=== PATIENT | female | born 1985 | race Caucasian/White ===

== ENCOUNTER → 2016-07-02 | Outpatient (CLI) | payer BC ==
--- NOTE | 2016-07-03 08:38 | CONS ---
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 The patient has had 2 previous episodes of atrial fibrillation. She has paroxysmal atrial fibrillation. Her episodes occurred at the time of approximately 4 years ago and she has had no further episodes since then. She is under the care of Dr. Major. There is a concern for obstructive sleep apnea as this was a concern expressed by her belt loop maker. The patient has loud snoring, yet she does not have any witnessed apneas. No nocturnal arousals, choking or gasping for air. No nocturia. She has history of grinding of the teeth and she wears a bite block. No sleepwalking. No anxiety or panic attacks. No palpitations. No heartburn. No major difficulties with tiredness, fatigue or sleepiness during the day. No problems with memory and concentration. No anxiety. No depression. No sexual dysfunction. She goes to bed around 10 p.m. wakes up at 5:20 a.m. in the morning. On weekends, she goes to bed around 10:30 p.m., wakes up at 6 a.m. in the morning. She averages around 7 hours of sleep. No restlessness in the lower extremities. Her current cardiac rhythm is sinus. PAST MEDICAL HISTORY: Paroxysmal atrial fibrillation, bronchial asthma, and hypothyroidism. PAST SURGICAL HISTORY: None. ALLERGIES: CIPRO. Outpatient medication list includes: 1. Synthroid 88 mcg p.o. q. day. 2. Probiotic. 3. Multivitamin. 4. Fish oil. 5. Vitamin D3. 6. Albuterol rescue inhaler. 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 No history of alcohol. No history of IV drugs. FAMILY HISTORY: Negative for cardiac disease. Patient's mother has obstructive sleep apnea. REVIEW OF SYSTEMS: Twelve-point review of systems was done and positive findings were all mentioned above in the history of present illness. BP is 119/75, pulse 77, respirations 16, temperature 98.0, saturation 95% on room air. Weight is 229. Height is 67-3/4 of an inch. BMI is 35.1. Neck size 15-2/3. [place] score is at 5. GENERAL APPEARANCE: Calm, comfortable. HEENT: Mallampati class 2 to 3. No goiter or neck masses. LUNGS: Clear to auscultation. HEART: Sounds are regular rate and rhythm. Normal S1, S2. No S3, no S4. No murmurs. ABDOMEN: Soft, nontender. No organomegaly. EXTREMITIES: No edema. No cyanosis or clubbing. IMPRESSION: 1. Snoring. 2. Paroxysmal atrial fibrillation. 3. Hypothyroidism. 4. Bronchial asthma. PLAN: Overall suspicion for obstructive sleep apnea is low. Will set up this patient for a home sleep study to screen her for obstructive sleep apnea and treat accordingly. Meanwhile, the patient's cardiac rhythm is sinus. She will benefit from weight loss. She will benefit from implementing good sleep hygiene measures. She is averaging around 7 hours of sleep anyway throughout the night which is plausible. Will continue to follow.
== END | disposition home or self-care (01) ==
LOC: SLEEP 15:21
PROVIDERS: ATTEND Internal Medicine Critical Care Medicine
DX: I48.0 Paroxysmal atrial fibrillation (principal); E03.9 Hypothyroidism, unspecified; J45.909 Unspecified asthma, uncomplicated; Z79.899 Other long term (current) drug therapy
CPT/HCPCS: 99211

== ENCOUNTER → 2017-03-06 | Outpatient (CLI) | payer BC ==
--- NOTE | 2017-03-06 13:25 | ECHOF ---
Referral Reason:A Fib I48 MEASUREMENTS -------- HEIGHT: 170.2 cm WEIGHT: 104.3 kg BP: 137/92 RVIDd: 3.0 cm (< 3.3) IVSd: 1.4 cm (0.6 - 1.1) LVIDd: 3.8 cm (3.9 - 5.3) LVPWd: 1.2 cm (0.6 - 1.1) IVSs: 1.6 cm LVIDs: 2.6 cm LVPWs: 1.7 cm LAESV Index (A-L): 18.77 ml/m Ao Diam: 3.5 cm (2.0 - 3.7) AV Cusp: 2.1 cm (1.5 - 2.6) LA Diam: 3.1 cm (2.7 - 3.8) MV EXCURSION: 21.866 mm (> 18.000) MV EF SLOPE: 106 mm/s (70 - 150) EPSS: 0.5 cm MV E Maycol: 0.70 m/s MV DecT: 254 ms MV A Maycol: 0.73 m/s MV E/A Ratio: 0.96 RAP: 5.00 mmHg RVSP: 7.79 mmHg FINDINGS -------- Sinus rhythm. This was a technically good study. The left ventricular size is normal. There is mild concentric left ventricular hypertrophy. Overa ll left ventricular systolic function is normal with, an EF between 55 - 60 %. The right ventricle is normal in size and function. Normal LA size by volume 22+/-6 ml/m2. The right atrium is normal in size. The aortic valve is trileaflet, and appears structurally normal. No aortic stenosis or regurgitation. The mitral valve leaflets are mildly thickened. There is trace mitral regurgitation. Trace tricuspid regurgitation present. The pulmonic valve is normal. The aortic root size is normal. Normal inferior vena cava with normal inspiratory collapse consistent with estimated right atrial pre ssure of 5 mmHg. The pericardium is normal. There is no pericardial effusion. CONCLUSIONS -------- 1. Sinus rhythm. 2. This was a technically good study. 3. The left ventricular size is normal. 4. There is mild concentric left ventricular hypertrophy. 5. Overall left ventricular systolic function is normal with, an EF between 55 - 60 %. 6. Normal LA size by volume 22+/-6 ml/m2. 7. The aortic valve is trileaflet, and appears structurally normal. No aortic stenosis or regurgitati on. 8. The mitral valve leaflets are mildly thickened. 9. There is trace mitral regurgitation. 10. Trace tricuspid regurgitation present. 11. The aortic root size is normal. 12. There is no pericardial effusion. [facility]URCH SECRETARY: Geronimo Napoles RDCS
== END | disposition home or self-care (01) ==
LOC: RADECHMAIN 11:28
PROVIDERS: ATTEND Internal Medicine Clinical Cardiac Electrophysiology
DX: I05.9 Rheumatic mitral valve disease, unspecified (principal); I51.7 Cardiomegaly
CPT/HCPCS: 93306

== ENCOUNTER 2017-05-14 15:21 | Inpatient (IN) | payer BC ==
[2017-05-14] MEDS ORDERED: THIAMINE 100 MG/ML 2 ML VIAL IVP STA (15:39)
[2017-05-14] MEDS ORDERED: SODIUM CHLORIDE 0.9% 1,000 ML IV STA ×2 (15:39)
[2017-05-14] MEDS ORDERED: SODIUM CHLORIDE 0.9% 500 ML IV STA (15:39)
[2017-05-14] MEDS ORDERED: diphenhydrAMINE 50 MG/ML 1 ML VIAL IVP STA (15:39)
[2017-05-14] MEDS ORDERED: DILTIAZEM 5 MG/ML 5 ML VIAL IVP STA ×3 (15:46→21:01)
[2017-05-14] MEDS ORDERED: DILTIAZEM 50 MG in SODIUM CHLORIDE 0.9% 40 ML IV ONE (15:46)
[2017-05-14] MEDS ORDERED: DILTIAZEM 125 MG in SODIUM CHLORIDE 0.9% 100 ML IV ONE (15:52)
[2017-05-14 15:57] LABS: Basophils % (A) 0 %; Eosinophils % (A) 0 %; HCT 44.2 % (34.0-46.0); HGB 15.6 gm/dL (11.4-16.0); Lymphocytes # (A) 0.5 k/uL (1.0-4.8); Lymphocytes % (A) 3 %; MCH 28.6 pg (25.0-35.0); MCHC 35.3 g/dL (31.0-37.0); MCV 81.1 fL (80.0-100.0); Mean Platelet Volume 8.1; Monocytes # (A) 0.6 k/uL (0-1.0); Monocytes % (A) 3 %; Neutrophils # (A) 16.6 k/uL (1.3-7.7); Neutrophils % (A) 92 %; Platelet Count 267 k/uL (150-450); RBC 5.45 m/uL (3.80-5.40); RDW 12.4 % (11.5-15.5)
--- NOTE | 2017-05-14 16:01 | ED ---
General Adult HPI - General Chief complaint: Nausea/Vomiting/Diarrhea Stated complaint: heart palpitations/10wks preg Time Seen by Provider: 05/14/17 15:37 Source: patient, RN notes reviewed, old records reviewed Mode of arrival: ambulatory Limitations: no limitations - History of Present Illness Initial comments: This is a 29-year-old female the ER for evaluation. Patient has multiple complaints today. Patient is 10 weeks and does suffer from nausea vomiting and recent diarrhea. Patient has no pain. She noticed that her heart started racing today and she does have history for ablation with RVR, patient is a with history of A. fib with RVR during . Patient will be admitted for cardiology observation - Related Data Home Medications Medication Instructions Recorded Confirmed Levothyroxine Sodium 88 mcg PO DAILY 04/27/14 05/14/17 [Levothyroxine Sodium] Albuterol Inhaler [Ventolin Hfa 1 - 2 puff INHALATION RT-Q6H PRN 05/14/17 Inhaler] Diclegis 10-10mg 2 tab PO HS 05/14/17 05/14/17 Flecainide Acetate 200 mg PO DAILY PRN 05/14/17 05/14/17 Bdz-Fgyk-Rrhcy Acid 1 cap PO DAILY 05/14/17 05/14/17 [-U Capsule (formulary)] Allergies Allergy/AdvReac Type Severity Reaction Status Date / Time ciprofloxacin [From Cipro] Allergy Unknown Verified 05/14/17 15:30 ciprofloxacin HCl Allergy Unknown Verified 05/14/17 15:30 [From Cipro] Review of Systems ROS Statement: Those systems with pertinent positive or pertinent negative responses have been documented in the HPI. ROS Other: All systems not noted in ROS Statement are negative. Past Medical History Past Medical History: Atrial Fibrillation, Asthma, Thyroid Disorder History of Any Multi-Drug Resistant Organisms: None Reported Past Surgical History: Breast Surgery, Section Additional Past Surgical History / Comment(s): reduction Past Psychological History: No Psychological Hx Reported Smoking Status: Former smoker Past Alcohol Use History: None Reported, Occasional Past Drug Use History: None Reported General Exam Limitations: no limitations General appearance: alert, in no apparent distress, anxious Head exam: Present: atraumatic, normocephalic, normal inspection Eye exam: Present: normal appearance, PERRL, EOMI. Absent: scleral icterus, conjunctival injection, periorbital swelling ENT exam: Present: normal exam, mucous membranes moist Neck exam: Present: normal inspection. Absent: tenderness, meningismus, lymphadenopathy Respiratory exam: Present: normal lung sounds bilaterally. Absent: respiratory distress, wheezes, rales, rhonchi, stridor Cardiovascular Exam: Present: tachycardia, irregular rhythm, normal heart sounds. Absent: systolic murmur, diastolic murmur, rubs, gallop, clicks GI/Abdominal exam: Present: soft, normal bowel sounds. Absent: distended, tenderness, guarding, rebound, rigid Extremities exam: Present: normal inspection, full ROM, normal capillary refill. Absent: tenderness, pedal edema, joint swelling, calf tenderness Back exam: Present: normal inspection Neurological exam: Present: alert, oriented X3, CN II-XII intact Psychiatric exam: Present: normal affect, normal mood Skin exam: Present: warm, dry, intact, normal color. 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 fib with RVR rate 165, QRS 76, QTc 473 Medical Decision Making - Medical Decision Making 31 female ER for evaluation nausea vomiting related, patient also in A. fib with RVR which is recurrent for her. Patient be admitted for cardiology treatment - Lab Data Result diagrams: 05/14/17 15:44 05/14/17 15:44 Lab Results 05/14/17 05/14/17 05/14/17 Range/Units 15:44 15:44 15:44 WBC 18.0 H (3.8-10.6) k/uL RBC 5.45 H (3.80-5.40) m/uL Hgb 15.6 (11.4-16.0) gm/dL Hct 44.2 (34.0-46.0) % MCV 81.1 (80.0-100.0) fL MCH 28.6 (25.0-35.0) pg MCHC 35.3 (31.0-37.0) g/dL RDW 12.4 (11.5-15.5) % Plt Count 267 (150-450) k/uL Neutrophils % 92 % Lymphocytes % 3 % Monocytes % 3 % Eosinophils % 0 % Basophils % 0 % Neutrophils # 16.6 H (1.3-7.7) k/uL Lymphocytes # 0.5 L (1.0-4.8) k/uL Monocytes # 0.6 (0-1.0) k/uL Eosinophils # 0.0 (0-0.7) k/uL Basophils # 0.0 (0-0.2) k/uL Sodium 140 (137-145) mmol/L Potassium 4.2 (3.5-5.1) mmol/L Chloride 105 (98-107) mmol/L Carbon Dioxide 19 L (22-30) mmol/L Anion Gap 16 mmol/L BUN 14 (7-17) mg/dL Creatinine 0.50 L (0.52-1.04) mg/dL Est GFR (CKD-EPI)AfAm >90 (>60 ml/min/1.73 sqM) Est GFR (CKD-EPI)NonAf >90 (>60 ml/min/1.73 sqM) Glucose 121 H (74-99) mg/dL Calcium 9.7 (8.4-10.2) mg/dL Phosphorus 4.0 (2.5-4.5) mg/dL Magnesium 1.7 (1.6-2.3) mg/dL Total Bilirubin 0.5 (0.2-1.3) mg/dL AST 22 (14-36) U/L ALT 28 (9-52) U/L Alkaline Phosphatase 77 (38-126) U/L Total Creatine Kinase 69 (30-135) U/L CK-MB (CK-2) 0.6 (0.0-2.4) ng/mL CK-MB (CK-2) Rel Index 0.9 Troponin I <0.012 (0.000-0.034) ng/mL Total Protein 7.4 (6.3-8.2) g/dL Albumin 4.2 (3.5-5.0) g/dL Urine Color Urine Appearance (Clear) Urine pH (5.0-8.0) Ur Specific [place] (1.001-1.035) Urine Protein (Negative) Urine Glucose (UA) (Negative) Urine Ketones (Negative) Urine Blood (Negative) Urine Nitrite (Negative) Urine Bilirubin (Negative) Urine Urobilinogen (<2.0) mg/dL Ur Leukocyte Esterase (Negative) Urine RBC (0-5) /hpf Urine WBC (0-5) /hpf Ur Squamous Epith Cells (0-4) /hpf Urine Bacteria (None) /hpf Urine Mucus (None) /hpf 05/14/17 Range/Units 16:00 WBC (3.8-10.6) k/uL RBC (3.80-5.40) m/uL Hgb (11.4-16.0) gm/dL Hct (34.0-46.0) % MCV (80.0-100.0) fL MCH (25.0-35.0) pg MCHC (31.0-37.0) g/dL RDW (11.5-15.5) % Plt Count (150-450) k/uL Neutrophils % % Lymphocytes % % Monocytes % % Eosinophils % % Basophils % % Neutrophils # (1.3-7.7) k/uL Lymphocytes # (1.0-4.8) k/uL Monocytes # (0-1.0) k/uL Eosinophils # (0-0.7) k/uL Basophils # (0-0.2) k/uL Sodium (137-145) mmol/L Potassium (3.5-5.1) mmol/L Chloride (98-107) mmol/L Carbon Dioxide (22-30) mmol/L Anion Gap mmol/L BUN (7-17) mg/dL Creatinine (0.52-1.04) mg/dL Est GFR (CKD-EPI)AfAm (>60 ml/min/1.73 sqM) Est GFR (CKD-EPI)NonAf (>60 ml/min/1.73 sqM) Glucose (74-99) mg/dL Calcium (8.4-10.2) mg/dL Phosphorus (2.5-4.5) mg/dL Magnesium (1.6-2.3) mg/dL Total Bilirubin (0.2-1.3) mg/dL AST (14-36) U/L ALT (9-52) U/L Alkaline Phosphatase (38-126) U/L Total Creatine Kinase (30-135) U/L CK-MB (CK-2) (0.0-2.4) ng/mL CK-MB (CK-2) Rel Index Troponin I (0.000-0.034) ng/mL Total Protein (6.3-8.2) g/dL Albumin (3.5-5.0) g/dL Urine Color Yellow Urine Appearance Cloudy H (Clear) Urine pH 6.0 (5.0-8.0) Ur Specific [place] 1.030 (1.001-1.035) Urine Protein 2+ H (Negative) Urine Glucose (UA) Negative (Negative) Urine Ketones 1+ H (Negative) Urine Blood Negative (Negative) Urine Nitrite Negative (Negative) Urine Bilirubin Negative (Negative) Urine Urobilinogen <2.0 (<2.0) mg/dL Ur Leukocyte Esterase Negative (Negative) Urine RBC 2 (0-5) /hpf Urine WBC 5 (0-5) /hpf Ur Squamous Epith Cells 2 (0-4) /hpf Urine Bacteria Rare H (None) /hpf Urine Mucus Many H (None) /hpf Disposition Clinical Impression: Atrial fibrillation with RVR, Nausea & vomiting Disposition: ADMITTED IP TO THIS HOSP Condition: Fair Referrals: Art Bello DO [Primary Care Provider] - 1-2 days
[2017-05-14] MEDS ORDERED: ONDANSETRON 4 MG/2 ML VIAL IVP STA ×3 (16:06→19:40)
[2017-05-14 16:08] LABS: ALT 28 U/L (9-52); AST 22 U/L (14-36); Albumin 4.2 g/dL (3.5-5.0); Alkaline Phosphatase 77 U/L (38-126); Anion Gap 16 mmol/L; Blood Urea Nitrogen 14 mg/dL (7-17); Calcium 9.7 mg/dL (8.4-10.2); Carbon Dioxide 19 mmol/L (22-30); Chloride 105 mmol/L (98-107); Glucose 121 mg/dL (74-99); Potassium 4.2 mmol/L (3.5-5.1); Sodium 140 mmol/L (137-145); Total Bilirubin 0.5 mg/dL (0.2-1.3); Total Protein 7.4 g/dL (6.3-8.2)
[2017-05-14 16:16] LABS: Appearance,Urine Cloudy (Clear); Bacteria,Urine Rare /hpf; Bilirubin,Urine Negative (Negative); Blood,Urine Negative (Negative); Color,Urine Yellow; Glucose,Urine (UA) Negative (Negative); Ketones,Urine 1+ (Negative); Leukocyte Esterase,Urine Negative (Negative); Mucus,Urine Many /hpf; Protein,Urine 2+ (Negative); RBC,Urine 2 /hpf (0-5); Squamous Epithelial Cell,Urine 2 /hpf (0-4); Urobilinogen,Urine <2.0 mg/dL (<2.0); WBC,Urine 5 /hpf (0-5)
[2017-05-14 16:24] LABS: Creatine Kinase 69 U/L (30-135)
[2017-05-14 16:36] LABS: Creatine Kinase MB 0.6 ng/mL (0.0-2.4); Troponin I <0.012 ng/mL (0.000-0.034)
[2017-05-14] MEDS ORDERED: NITROGLYCERIN SL TABS 0.4 MG TAB SUBLINGUAL PRN (17:15)
[2017-05-14] MEDS ORDERED: diphenhydrAMINE 50 MG/ML 1 ML VIAL IVP PRN (17:17)
[2017-05-14] MEDS ORDERED: PYRIDOXINE 100 MG/ML 1 ML VIAL IVP STA (17:21)
[2017-05-14] MEDS ORDERED: ONDANSETRON 4 MG/2 ML VIAL IVP PRN (19:37)
[2017-05-14 21:54] LABS: Creatine Kinase MB 0.7 ng/mL (0.0-2.4); Troponin I 0.012 ng/mL (0.000-0.034)
[2017-05-15 04:19] LABS: Anion Gap 11 mmol/L; Blood Urea Nitrogen 13 mg/dL (7-17); Carbon Dioxide 21 mmol/L (22-30); Chloride 104 mmol/L (98-107); Glucose 99 mg/dL (74-99); Potassium 3.8 mmol/L (3.5-5.1); Sodium 136 mmol/L (137-145)
[2017-05-15 04:36] LABS: Basophils % (A) 0 %; Eosinophils % (A) 0 %; HCT 37.2 % (34.0-46.0); HGB 12.8 gm/dL (11.4-16.0); Lymphocytes # (A) 1.1 k/uL (1.0-4.8); Lymphocytes % (A) 11 %; MCH 28.5 pg (25.0-35.0); MCHC 34.5 g/dL (31.0-37.0); MCV 82.7 fL (80.0-100.0); Mean Platelet Volume 8.6; Monocytes # (A) 0.5 k/uL (0-1.0); Monocytes % (A) 5 %; Neutrophils # (A) 8.4 k/uL (1.3-7.7); Neutrophils % (A) 82 %; Platelet Count 232 k/uL (150-450); RDW 12.7 % (11.5-15.5); WBC 10.3 k/uL (3.8-10.6)
[2017-05-15 04:50] LABS: Cholesterol 120 mg/dL (<200); HDL Cholesterol 57 mg/dL (40-60); LDL Cholesterol,Calculated 46 mg/dL (0-99); Triglycerides 83 mg/dL (<150)
[2017-05-15 04:52] LABS: Creatine Kinase MB 0.8 ng/mL (0.0-2.4); Troponin I 0.019 ng/mL (0.000-0.034)
[2017-05-15 08:22] VITALS: BP 128/79; PULSE 85; RESP 18; TEMP 96.9
--- NOTE | 2017-05-15 08:27 | P.HPOB ---
History of Present Illness H&P Date: 05/15/17 Chief Complaint: Tachycardia, atrial fibrillation The patient is a 31-year-old 3 para 03/10/2000 who presented to the emergency room as documented in the ER notes with complaint of significant tachycardia with the somewhat associated shortness of breath. She carries a history of known atrial fibrillation for which she was treated during her first and ultimately converted after several days of medication. She had taken her to medications prescribed by Dr. Major prior to presentation to the emergency room and failed to convert during that short period of time. As result she is seen in the emergency room where she was further treated and admitted for observation and cardiology consultation, further management of atrial fibrillation. She has had fairly significant nausea and vomiting for the first portion of but, as of this morning, feel significantly better from that perspective. She has had a normal ultrasound in the office and is approximately 10 weeks which is the reason for her admission to my service rather than internal medicine. This morning, the patient has no ongoing complaints and feels well. Obstetrical history: 3 para 03/10/2000 with 1 term delivery for a child with albinism followed by a mid second trimester medical interruption of for a fetus found with multiple congenital anomalies. This has been evaluated by ultrasound and, to this point, appears normal. She is scheduled for her first obstetrical visit next week. Gynecologic history: Unremarkable with no history of any infections to include STDs. Review of Systems Review of systems is confined to history of present illness. Past Medical History Past Medical History: Atrial Fibrillation, Asthma, Thyroid Disorder History of Any Multi-Drug Resistant Organisms: None Reported Past Surgical History: Breast Surgery, Section Additional Past Surgical History / Comment(s): reduction Past Anesthesia/Blood Transfusion Reactions: No Reported Reaction Past Psychological History: No Psychological Hx Reported Smoking Status: Former smoker Past Alcohol Use History: None Reported, Occasional Past Drug Use History: None Reported - Past Family History Father Family Medical History: AFIB, Hypertension Medications and Allergies Home Medications Medication Instructions Recorded Confirmed Type Levothyroxine Sodium 88 mcg PO DAILY 04/27/14 05/14/17 History [Levothyroxine Sodium] Albuterol Inhaler [Ventolin Hfa 1 - 2 puff INHALATION RT-Q6H PRN 05/14/17 History Inhaler] Diclegis 10-10mg 2 tab PO HS 05/14/17 05/14/17 History Flecainide Acetate 200 mg PO DAILY PRN 05/14/17 05/14/17 History Ogs-Zsic-Gimfx Acid 1 cap PO DAILY 05/14/17 05/14/17 History [-U Capsule (formulary)] Allergies Allergy/AdvReac Type Severity Reaction Status Date / Time ciprofloxacin [From Cipro] Allergy Anaphylaxis Verified 05/14/17 20:17 ciprofloxacin HCl Allergy Anaphylaxis Verified 05/14/17 20:17 [From Cipro] Exam - Vital Signs Vital signs: Vital Signs Temp Pulse Pulse Resp BP BP Pulse Ox 05/15/17 08:00 88 16 05/15/17 04:00 98.4 F 88 16 115/74 96 05/14/17 23:06 98.7 F 83 18 113/65 97 05/14/17 20:00 144 H 18 131/75 99 05/14/17 19:55 99.2 F 05/14/17 19:22 135 H 16 116/78 99 05/14/17 17:17 142 H 16 127/72 99 05/14/17 15:47 159 H 05/14/17 15:26 99.1 F 109 H 18 129/88 98 Intake and Output 05/14/17 05/15/17 05/15/17 22:59 06:59 14:59 Intake Total 830 80 240 Balance 830 80 240 Intake: IV 830 80 Diltiazem 50 mg In Sodium 30 Chloride 0.9% 40 ml @ 5 MG/HR 5 mls/hr IV .Q10H ONE Rx#:[id number] Sodium Chloride 0.9% 1, 800 80 000 ml @ 100 mls/hr IV . Q10H STA Rx#:[id number] Oral 240 Other: Voiding Method Toilet Toilet Toilet Weight 109.769 kg 109.8 kg In general, this is a well-developed, well-nourished white female in no acute distress. Her heart has a regular rhythm and rate without murmur. Her lungs are clear to auscultation bilaterally in all [place]. Her abdomen is nondistended, has normal active bowel sounds, is soft, nontender, and without any palpable masses, penicillin ultimately, or hernias. Her extremities are without any cyanosis, clubbing, or edema and are nontender to palpation bilaterally. Pelvic examination is deferred. Results Result Diagrams: 05/15/17 03:42 05/15/17 03:42 Abnormal Lab Results - Last 24 Hours (Table) 05/14/17 05/14/17 05/14/17 Range/Units 15:44 15:44 16:00 WBC 18.0 H (3.8-10.6) k/uL RBC 5.45 H (3.80-5.40) m/uL Neutrophils # 16.6 H (1.3-7.7) k/uL Lymphocytes # 0.5 L (1.0-4.8) k/uL Sodium (137-145) mmol/L Carbon Dioxide 19 L (22-30) mmol/L Creatinine 0.50 L (0.52-1.04) mg/dL Glucose 121 H (74-99) mg/dL Urine Appearance Cloudy H (Clear) Urine Protein 2+ H (Negative) Urine Ketones 1+ H (Negative) Urine Bacteria Rare H (None) /hpf Urine Mucus Many H (None) /hpf 05/15/17 05/15/17 Range/Units 03:42 03:42 WBC (3.8-10.6) k/uL RBC (3.80-5.40) m/uL Neutrophils # 8.4 H (1.3-7.7) k/uL Lymphocytes # (1.0-4.8) k/uL Sodium 136 L (137-145) mmol/L Carbon Dioxide 21 L (22-30) mmol/L Creatinine 0.50 L (0.52-1.04) mg/dL Glucose (74-99) mg/dL Urine Appearance (Clear) Urine Protein (Negative) Urine Ketones (Negative) Urine Bacteria (None) /hpf Urine Mucus (None) /hpf Microbiology - Last 24 Hours (Table) 05/14/17 16:00 Urine Culture - Preliminary Urine,Voided Assessment and Plan (1) 10 weeks gestation of Current Visit: Yes Status: Acute Code(s): Z3A.10 - 10 WEEKS GESTATION OF SNOMED Code(s): 16337751 (2) Atrial fibrillation with RVR Current Visit: Yes Status: Acute Code(s): I48.91 - UNSPECIFIED ATRIAL FIBRILLATION SNOMED Code(s): 821807825982308 Plan: The patient was admitted to my service as internal medicine was uncomfortable with her status of . Cardiology has been consulted of but the patient appears to have converted with the medications provided both at home for her and then given through the emergency room. As result, she will be discharged pending cardiology's [place]. There is some question as to whether or not she deserves anticoagulation in the short or even long-term. We likely will seek maternal medicine consultation as an outpatient for their input. Otherwise the patient will follow up as previously scheduled in our office.
--- NOTE | 2017-05-15 08:31 | P.DS ---
Providers Date of admission: 05/14/17 17:15 Expected date of discharge: 05/15/17 Attending physician: Newton Meyers Consults: 05/14/17 17:15 Consult Physician Urgent Consulting Provider: Victorino Major Consult Reason/Comments: afib Do you want consulting provider notified?: Yes Primary care physician: Art Bello - Discharge Diagnosis(es) (1) 10 weeks gestation of Current Visit: Yes Status: Acute (2) Atrial fibrillation with RVR Current Visit: Yes Status: Acute Hospital Course: The patient is a 31-year-old 3 para 03/10/2000 admitted at approximately 10 weeks of through the emergency room with a history of atrial fibrillation and again found to be in acute atrial fibrillation. She took medications provided her by cardiology at home prior to presentation to the emergency room but did not convert. She was given further medications in the emergency room and admitted to the hospital for observation and cardiology consultation. Shortly after admission, she appears to of converted to normal sinus rhythm. She is entirely without symptoms at this time though she has had a fairly significant amount of nausea and vomiting in the early portion of . This is likely not necessarily related to the cardiac condition but more to early . This morning, she feels well and I will be discharged home to follow-up in our office for her first obstetrical visit next week as previously planned. I would likely will seek maternal medicine consultation for their input especially given her history of medical interruption of for anomalies in her last . There is a question as to whether or not she deserves anticoagulation or at least prophylactic anticoagulation in the short or long-term during this . Procedures: #1. 23 hour observation #2. Remote telemetry #3. IV hydration #4. Cardiology consultation Patient Condition at Discharge: Stable Plan - Discharge Summary Discharge Rx Participant: No New Discharge Prescriptions: No Action Levothyroxine Sodium [Levothyroxine Sodium] 88 mcg PO DAILY Diclegis 10-10mg 2 tab PO HS Albuterol Inhaler [Ventolin Hfa Inhaler] 1 - 2 puff INHALATION RT-Q6H PRN PRN Reason: Shortness Of Breath Yvr-Ijcg-Rpxak Acid [-U Capsule (formulary)] 1 cap PO DAILY Flecainide Acetate 200 mg PO DAILY PRN PRN Reason: Irregular heart beat Discharge Medication List Levothyroxine Sodium [Levothyroxine Sodium] 88 mcg PO DAILY 04/27/14 [History] Albuterol Inhaler [Ventolin Hfa Inhaler] 1 - 2 puff INHALATION RT-Q6H PRN [History] Diclegis 10-10mg 2 tab PO HS 05/14/17 [History] Flecainide Acetate 200 mg PO DAILY PRN 05/14/17 [History] Wzo-Awuj-Pgcxm Acid [-U Capsule (formulary)] 1 cap PO DAILY 09/24 [History] Follow up Appointment(s)/Referral(s): Art Bello DO [Primary Care Provider] - 1-2 days Newton Meyers MD [STAFF PHYSICIAN] - 1 Week Victorino Major MD [STAFF PHYSICIAN] - 1 Week Discharge Disposition: HOME SELF-CARE
[2017-05-15] MEDS ORDERED: THIAMINE 100 MG/ML 2 ML VIAL IVP SCH (09:00)
[2017-05-15] MEDS ORDERED: PYRIDOXINE 100 MG/ML 1 ML VIAL IVP SCH (09:00)
--- NOTE | 2017-05-16 11:47 | CONS ---
CONSULTATION Vonda Tovar is a 31-year-old female who presented with palpitations at home and came to the hospital. She is 10 weeks . She felt palpitations. No syncope. No dizziness or lightheadedness. No chest pain. No shortness of breath. She took 200 mg of flecainide, but did not respond within next 2 to 3 , and therefore came to the hospital. A 12-lead ECG shows atrial fibrillation with RVR fairly irregular. By the time I saw her, she had converted back to sinus rhythm. PAST HISTORY: Past history of paroxysmal atrial fibrillation during her . At that time, it took 3 doses of flecainide to convert to sinus rhythm. At this time, she converted sooner. REVIEW OF SYSTEMS: No fever, chills, or rigors. No cough or expectoration. No nausea, vomiting, or diarrhea. No hematuria or dysuria. No strokes or seizures. No skin lesions or musculoskeletal complaints. MEDICATIONS: Medications include metoprolol, flecainide p.r.n. only. PHYSICAL EXAMINATION: On examination, her blood pressure is normal. Heart rates are now in the normal range. When she came in, she was in A. Fib with RVR. Breath sounds are clear. No rhonchi, no crackles. Heart sounds S1, S2 are normal. No murmurs or gallops or rub. Abdomen is soft and nontender. IMPRESSION: Paroxysmal atrial fibrillation with rapid ventricular response. This is the second episode she has had during her . Currently she is in sinus rhythm. SUGGEST: No anticoagulation, p.r.n. use of flecainide only along with metoprolol. She may go home from a cardiac standpoint. Follow up with me in the next 6 to 8 weeks. MMODL / IJN: [id number] /
== END 2017-05-15 10:07 | disposition home or self-care (01) | DRG 781 ==
LOC: EC 15:21 → 6SEL 17:15
PROVIDERS: ADMIT Obstetrics & Gynecology; ATTEND Obstetrics & Gynecology
DX: O99.411 Diseases of the circulatory system complicating pregnancy, first trimester (principal); I48.0 Paroxysmal atrial fibrillation; O99.511 Diseases of the respiratory system complicating pregnancy, first trimester; J45.909 Unspecified asthma, uncomplicated; Z3A.10 10 weeks gestation of pregnancy; O21.9 Vomiting of pregnancy, unspecified; O99.281 Endocrine, nutritional and metabolic diseases complicating pregnancy, first trimester; E07.9 Disorder of thyroid, unspecified; Z79.899 Other long term (current) drug therapy; Z87.891 Personal history of nicotine dependence; Z88.1 Allergy status to other antibiotic agents; Z82.49 Family history of ischemic heart disease and other diseases of the circulatory system
CPT/HCPCS: 36415; 80048; 80053; 80061; 81001; 82550; 82553; 83735; 84100; 84484; 85025; 87086; 93005; 96365; 96366; 96375; 96376; 99285

== ENCOUNTER 2017-12-10 10:15 | Inpatient (IN) | payer BC ==
[2017-12-10 10:44] VITALS: BMI 44.6
[2017-12-10] MEDS ORDERED: CITRIC ACID-SODIUM CITRATE 15 ML CUP PO ONE (10:48)
[2017-12-10] MEDS ORDERED: LACTATED RINGERS 1,000 ML IV SCH (11:00)
[2017-12-10 11:05] LABS: Basophils % (A) 0 %; Eosinophils # (A) 0.1 k/uL (0-0.7); Eosinophils % (A) 1 %; HCT 39.2 % (34.0-46.0); HGB 13.3 gm/dL (11.4-16.0); Lymphocytes # (A) 0.9 k/uL (1.0-4.8); Lymphocytes % (A) 9 %; MCH 27.7 pg (25.0-35.0); MCHC 33.8 g/dL (31.0-37.0); MCV 82.1 fL (80.0-100.0); Mean Platelet Volume 9.9; Monocytes # (A) 0.7 k/uL (0-1.0); Monocytes % (A) 6 %; Neutrophils # (A) 8.7 k/uL (1.3-7.7); Neutrophils % (A) 82 %; Platelet Count 205 k/uL (150-450); RBC 4.78 m/uL (3.80-5.40); RDW 13.7 % (11.5-15.5); WBC 10.7 k/uL (3.8-10.6)
--- NOTE | 2017-12-10 11:59 | P.HPOB ---
History of Present Illness H&P Date: 12/10/17 Chief Complaint: 40-0/7 weeks, previous , repeat The patient is a 32-year-old 3 para 1011 admitted at 40-0/7 as established by last menstrual period and confirmed by seven-week ultrasound. She is admitted for repeat low transverse section with intraoperative bilateral tubal occlusion using Filshie clips. She has signed consent to this effect in the office. Her has been essentially uncomplicated though she is Rh- and received RhoGAM at 28 weeks. She also has a history of A. fib which has not been particularly problematic during this . Group B strep status is negative. Obstetrical history: 3 para 1011 with 1 previous term section for a very large baby. That child does have known albinism. She also has a history of a medical interruption of for trisomy in her most recent . Current statistics are listed in history of present illness. EDC of 12/10/2017 was established by last menstrual period and confirmed by seven-week ultrasound. Laboratory workup demonstrates a blood type of O- with a negative antibody screen. Rubella status is immune. The remainder of the laboratory workup was within normal limits. Early Glucola was normal as was second trimester Glucola. Group B strep status is negative. Gynecologic history: Unremarkable with no history of any infections to include STDs. Review of Systems Review of systems is confined to history of present illness. Past Medical History Past Medical History: Atrial Fibrillation, Asthma, Thyroid Disorder History of Any Multi-Drug Resistant Organisms: None Reported Past Surgical History: Breast Surgery, Section Additional Past Surgical History / Comment(s): reduction Past Anesthesia/Blood Transfusion Reactions: No Reported Reaction Past Psychological History: No Psychological Hx Reported Smoking Status: Former smoker Past Alcohol Use History: None Reported, Occasional Past Drug Use History: None Reported - Past Family History Father Family Medical History: AFIB, Hypertension Medications and Allergies Home Medications Medication Instructions Recorded Confirmed Type Levothyroxine Sodium 88 mcg PO DAILY 04/27/14 05/14/17 History Albuterol Inhaler [Ventolin Hfa 1 - 2 puff INHALATION RT-Q6H PRN 05/14/17 History Inhaler] Diclegis 10-10mg 2 tab PO HS 05/14/17 05/14/17 History Jxr-Wjhn-Pqmda Acid 1 cap PO DAILY 05/14/17 05/14/17 History [-U Capsule (formulary)] Allergies Allergy/AdvReac Type Severity Reaction Status Date / Time ciprofloxacin [From Cipro] Allergy Anaphylaxis Verified 05/14/17 20:17 ciprofloxacin HCl Allergy Anaphylaxis Verified 05/14/17 20:17 [From Cipro] Exam Vital Signs Temp Pulse Resp BP Pulse Ox 12/10/17 10:40 97.9 F 107 H 16 139/98 97 Intake and Output 12/09/17 12/10/17 12/10/17 22:59 06:59 14:59 Other: Weight 133.356 kg In general, this is a well-developed, moderately obese white female in no acute distress. Her heart has a regular rhythm and rate without murmur. Her lungs are clear to auscultation bilaterally in all bingham. Her abdomen is gravid, nondistended, has normal active bowel sounds, is soft, nontender, and without any palpable masses aside from uterine fundus. Her extremities are without any cyanosis, clubbing, or significant edema though she has had moderate edema 8 in the . They are nontender to palpation bilaterally. Digital cervical examination is deferred. Results Result Diagrams: 12/10/17 10:37 Abnormal Lab Results - Last 24 Hours (Table) 12/10/17 Range/Units 10:37 WBC 10.7 H (3.8-10.6) k/uL Neutrophils # 8.7 H (1.3-7.7) k/uL Lymphocytes # 0.9 L (1.0-4.8) k/uL Assessment and Plan (1) Term Current Visit: Yes Status: Acute Code(s): Z34.80 - ENCOUNTER FOR SUPRVSN OF NORMAL , UNSP TRIMESTER SNOMED Code(s): 61961014 (2) Previous section Current Visit: Yes Status: Acute Code(s): Z98.891 - HISTORY OF UTERINE SCAR FROM PREVIOUS SURGERY SNOMED Code(s): 667813209 (3) Status post section Current Visit: Yes Status: Acute Code(s): Z98.891 - HISTORY OF UTERINE SCAR FROM PREVIOUS SURGERY SNOMED Code(s): 311780302 (4) Family planning Current Visit: Yes Status: Acute Code(s): Z30.09 - ENCOUNTER FOR OT GENERAL CNSL AND ADVICE ON CONTRACEPTION SNOMED Code(s): 678293326 Plan: The patient is admitted for repeat low transverse section with intraoperative bilateral tubal occlusion using Filshie clips. The risks and complications of the procedure have been thoroughly discussed and she has understood and agreed to proceed.
[2017-12-10] MEDS ORDERED: NALBUPHINE 10 MG/ML VIAL (10ML MDV) ONE (12:22)
[2017-12-10] MEDS ORDERED: ONDANSETRON 4 MG/2 ML VIAL ONE (12:22)
[2017-12-10] MEDS ORDERED: ePHEDrine SULFATE/0.9% NACL/PF 50 MG/5 ML SYRINGE IV ONE (12:22)
[2017-12-10] MEDS ORDERED: MORPHINE SULFATE (PF) 0.3 MG/0.3 ML SYR ONE (12:22)
[2017-12-10] MEDS ORDERED: OXYTOCIN 10 UNIT/ML 1 ML VIAL ONE (12:22)
[2017-12-10] MEDS ORDERED: NALOXONE 0.4 MG/ML 1 ML VIAL IV PRN ×2 (13:21→13:45)
[2017-12-10] MEDS ORDERED: SIMETHICONE 80 MG CHEWABLE PO PRN (13:21)
[2017-12-10] MEDS ORDERED: ZOLPIDEM 5 MG TAB PO PRN (13:21)
[2017-12-10] MEDS ORDERED: KETOROLAC 30 MG/ML 1 ML VIAL IVP PRN (13:21)
[2017-12-10] MEDS ORDERED: diphenhydrAMINE 50 MG CAP PO PRN (13:21)
[2017-12-10] MEDS ORDERED: HYDROcodone/APAP 5-325MG 1 EACH TAB PO PRN (13:21)
[2017-12-10] MEDS ORDERED: ACETAMINOPHEN TAB 325 MG TAB PO PRN (13:21)
[2017-12-10] MEDS ORDERED: diphenhydrAMINE 50 MG/ML 1 ML VIAL IVP PRN ×2 (13:21)
[2017-12-10] MEDS ORDERED: HYDROcodone/APAP 7.5-325MG 1 EACH TAB PO PRN (13:21)
[2017-12-10] MEDS ORDERED: METOCLOPRAMIDE 5 MG/ML 2 ML VIAL IVP PRN (13:21)
[2017-12-10] MEDS ORDERED: diphenhydrAMINE 25 MG CAP PO PRN (13:21)
[2017-12-10] MEDS ORDERED: ONDANSETRON 4 MG/2 ML VIAL IVP PRN (13:21)
[2017-12-10] MEDS ORDERED: OXYTOCIN 20 UNITS/1000 ML NS 1,000 ML IV SCH (13:30)
--- NOTE | 2017-12-10 13:30 | P.OP ---
Date of Procedure: 12/10/17 Preoperative Diagnosis: #1. 40-0/7 weeks, previous section #2. Undesired fertility #3. Rh- Postoperative Diagnosis: Same plus #4. Fibroid uterus Procedure(s) Performed: #1. Repeat low transverse section #2. Bilateral tubal occlusion with Filshie clips Anesthesia: spinal Surgeon: Newton Meyers Media Analyst #1: Morelia Bar Estimated Blood Loss (ml): 600 IV fluids (ml): 1,200 Urine output (ml): 200 Pathology: none sent Condition: stable Disposition: floor Operative Findings: Preoperatively, the patient had consented to repeat low transverse section with intraoperative tubal ligation. Intraoperatively, the patient was noted to have a moderate amount of scarring at the level of the fascia and rectus muscles. The uterus was otherwise essentially entirely normal to inspection with the exception of one approximate 3-4 cm posterior fundal fibroid. She was delivered of a viable 10 lbs. 10 oz. baby girl with Apgars of 8 at 1 minute and 9 at 5 minutes delivered in the occiput anterior position. The placenta was delivered manually, intact, and grossly normal with a grossly normal three-vessel cord. It was otherwise quite large. As noted above, the uterus, tubes, and ovaries were entirely normal aside from the fibroid. A Filshie clip was placed across the isthmic portion of each fallopian tube and firmly fixed. Description of Procedure: The patient was prepped and draped in usual fashion after spinal anesthesia was administered by the anesthesiologist. A Pfannenstiel incision was made through pre-existing scar and extended into the abdominal cavity with minimal difficulty. There was a moderate amount of scarring at the level of fascia and rectus muscles. The bladder peritoneum was elevated, incised, and reflected distally. A 2 cm incision was made in the transverse plane of the lower uterine segment to enter the uterus at which time clear fluid was noted. The incision was extended in both directions using the bandage scissors. The head was discovered floating in the pelvis and was delivered up and through the incision in the right occiput anterior position. The nose and mouth were thoroughly suctioned. Remainder of the infant was delivered onto the field where the cord was doubly clamped, cut, and the passed for resuscitative measures with weight and Apgars as noted above. cord blood was collected for evaluation for the necessity of RhoGAM. A segment of cord was doubly clamped, cut, and set aside should cord gases become necessary. The placenta was delivered manually and intact as noted above and was noted to be very large. The uterus was exteriorized and the interior cavity of the uterus swept of any remaining placental or membranous fragments. The margins of the incision were grasped with Rebolledo clamps and the incision closed in a single running locking stitch of 0 chromic catgut from margin to margin. Any small points of bleeding were made hemostatic with the Bovie. The posterior cul -de-sac was cleaned with a laparotomy sponge and consented for tubal ligation reaffirmed. A Filshie clip was placed firmly across the isthmic portion of each fallopian tube approximately 2-3 cm from the cornu and fixed firmly in place. The uterus was replaced within the abdominal cavity and the gutters swept of any remaining blood, fluid, or clot. The incision was reexamined and any small points of bleeding made hemostatic with the Bovie. Once hemostasis was established, the parietal peritoneum was loosely reapproximated in the layer of muscles examined and made hemostatic with the Bovie. The fascia was closed with 2 running stitches of 0 Vicryl proceeding from the lateral margins to the midpoint. The subcutaneous tissues were irrigated, made hemostatic with the Bovie, and reapproximated with a running stitch of 30 plain catgut. The skin was reapproximated with a running subcuticular stitch of 4-0 Vicryl followed by half-inch Steri-Strips placed with Mastisol. Estimated blood loss for the entire case was approximately 600 mL. There were no complications. All sponge, instrument, and needle counts were correct. Both mother and infant are resting comfortably in recovery.
[2017-12-10] MEDS ORDERED: NALBUPHINE 10 MG/ML VIAL (10ML MDV) IV PRN (13:45)
[2017-12-10] MEDS ORDERED: Rhogam IMMUNE GLOBULIN 1,500 UNIT/1 ML IM ONE (17:33)
[2017-12-10] MEDS: LACTATED RINGERS 1,000 ML IV SCH ×2 (21:01→22:03)
[2017-12-10] MEDS: SENNOSIDES-DOCUSATE SODIUM 1 EACH TAB PO SCH (22:02)
[2017-12-10] MEDS: PSEUDOEPHEDRINE 12HR 120 MG TABLET.ER PO SCH (22:03)
[2017-12-11 04:24] VITALS: RESP 18
[2017-12-11 07:55] LABS: Basophils % (A) 0 %; Eosinophils % (A) 0 %; HCT 40.7 % (34.0-46.0); HGB 13.1 gm/dL (11.4-16.0); Lymphocytes # (A) 1.1 k/uL (1.0-4.8); Lymphocytes % (A) 8 %; MCH 27.5 pg (25.0-35.0); MCHC 32.1 g/dL (31.0-37.0); MCV 85.8 fL (80.0-100.0); Mean Platelet Volume 9.3; Monocytes # (A) 0.7 k/uL (0-1.0); Monocytes % (A) 5 %; Neutrophils # (A) 11.4 k/uL (1.3-7.7); Neutrophils % (A) 85 %; Platelet Count 208 k/uL (150-450); RBC 4.74 m/uL (3.80-5.40); RDW 13.8 % (11.5-15.5); WBC 13.5 k/uL (3.8-10.6)
--- NOTE | 2017-12-11 08:39 | P.PNOBGPC ---
Subjective - Subjective Patient reports: Reports appetite normal, Reports voiding normally, Reports pain well controlled, Reports ambulating normally : doing well Objective - Vital Signs Latest vital signs: Vital Signs Temp Pulse Resp BP Pulse Ox 12/11/17 06:00 18 12/11/17 04:00 98.5 F 103 H 18 113/79 12/11/17 02:00 16 12/11/17 00:00 98.1 F 78 18 121/76 98 12/10/17 22:00 18 97 12/10/17 20:00 97.7 F 98 18 136/86 97 12/10/17 18:00 18 12/10/17 16:45 16 12/10/17 15:27 97.5 F L 110 H 18 141/90 99 12/10/17 14:50 99 15 137/95 97 12/10/17 14:45 16 12/10/17 14:22 101 H 15 138/90 98 12/10/17 14:05 102 H 15 141/85 98 12/10/17 13:56 108 H 16 119/62 98 12/10/17 13:48 99 12/10/17 13:45 16 12/10/17 13:35 98 15 126/68 98 12/10/17 13:20 97.2 F L 94 15 118/75 99 12/10/17 10:40 97.9 F 107 H 16 139/98 97 Intake and Output 12/10/17 12/11/17 12/11/17 22:59 06:59 14:59 Intake Total 1200 Output Total 500 1800 Balance 700 -1800 Intake: Intake, IV Titration 1000 Amount Lactated Ringers 1,000 ml 1000 @ 125 mls/hr IV .Q8H [facility] Rx#:[id number] Oral 200 Output: Urine 500 1800 Uretheral (Keen) 200 Other: # Voids 1 - Exam Extremities: Present: normal Abdomen: Present: normal appearance, soft. Absent: distention, tenderness Incision: Present: normal, dry, intact Uterus: Present: normal, firm (The uterine fundus is tonic and nontender around the umbilicus.) - Labs Labs: Abnormal Lab Results - Last 24 Hours (Table) 12/10/17 12/11/17 Range/Units 10:37 07:36 WBC 10.7 H 13.5 H (3.8-10.6) k/uL Neutrophils # 8.7 H 11.4 H (1.3-7.7) k/uL Lymphocytes # 0.9 L (1.0-4.8) k/uL Assessment and Plan (1) Term Current Visit: Yes Status: Acute Code(s): Z34.80 - ENCOUNTER FOR SUPRVSN OF NORMAL , UNSP TRIMESTER SNOMED Code(s): 06427950 (2) Previous section Current Visit: Yes Status: Acute Code(s): Z98.891 - HISTORY OF UTERINE SCAR FROM PREVIOUS SURGERY SNOMED Code(s): 819111887 (3) Status post section Current Visit: Yes Status: Acute Code(s): Z98.891 - HISTORY OF UTERINE SCAR FROM PREVIOUS SURGERY SNOMED Code(s): 923231764 (4) Family planning Current Visit: Yes Status: Acute Code(s): Z30.09 - ENCOUNTER FOR OT GENERAL CNSL AND ADVICE ON CONTRACEPTION SNOMED Code(s): 532609293 Plan: Continue routine postoperative and care. I anticipate discharge home tomorrow pending any complications. I have encouraged the patient to ambulate in the hallways as often as possible.
--- NOTE | 2017-12-11 09:35 | P.PN ---
Progress Note - Text Progress Note Date: 12/11/17 Postoperative day 1 status post section under spinal anesthesia, and intrathecal morphine given for postoperative analgesia, patient doing well, there is no anesthesia related complications, Patient had no headache, vital signs stable , Assessment and plan= postop day 1 status post , doing well there is no anesthesia related complication.
[2017-12-11] MEDS: IBUPROFEN 600 MG TAB PO PRN ×3 (10:48→23:38)
[2017-12-11] MEDS ORDERED: DIPH,PERTUS(ACELL)TETVAC-LF 0.5 ML VIAL IM ONE (11:41)
[2017-12-11] MEDS ORDERED: INFLUENZA VACCINE (6 MOS+) 60 MCG/0.5 ML SYRINGE IM ONE (11:41)
[2017-12-11] MEDS: PSEUDOEPHEDRINE 12HR 120 MG TABLET.ER PO SCH ×2 (11:42→14:07)
[2017-12-11] MEDS: SENNOSIDES-DOCUSATE SODIUM 1 EACH TAB PO SCH ×2 (11:48→17:41)
[2017-12-11] MEDS: LACTATED RINGERS 1,000 ML IV SCH (11:48)
[2017-12-12 00:42] VITALS: TEMP 97.9
[2017-12-12] MEDS: PSEUDOEPHEDRINE 12HR 120 MG TABLET.ER PO SCH (04:12)
[2017-12-12] MEDS: SENNOSIDES-DOCUSATE SODIUM 1 EACH TAB PO SCH (08:26)
[2017-12-12 08:35] VITALS: BP 149/90; PULSE 102
--- NOTE | 2017-12-12 10:58 | P.DS ---
Providers Date of admission: 12/10/17 10:15 Expected date of discharge: 12/12/17 Attending physician: Newton Meyers Primary care physician: Newton Meyers - Discharge Diagnosis(es) (1) Term Current Visit: Yes Status: Acute (2) Previous section Current Visit: Yes Status: Acute (3) Status post section Current Visit: Yes Status: Acute (4) Family planning Current Visit: Yes Status: Acute Hospital Course: The patient is a 32-year-old 3 para 1011 admitted at 40-0/7 weeks by good dating parameters perches admitted for repeat low transverse section with tubal ligation and signed consent to that effect. Her was uncomplicated though she was Rh- and received RhoGAM at 28 weeks. Group B strep status is negative. She was taken the operating room where she underwent a repeat low transverse section with intraoperative tubal occlusion with Filshie clips in entirely uncomplicated fashion. She was delivered of a viable 10 lbs. 10 oz. baby girl with Apgars of 8 at 1 minute and 9 at 5 minutes. Her postoperative and courses were entirely unremarkable with vital signs remained stable and her temperature was afebrile throughout. She was deemed stable for discharge by postoperative day #2 and was discharged home to follow-up in the office in 2 weeks for an incision check and 6 weeks routinely. Discharge instructions included calling for any significantly increased bleeding or foul-smelling lochia, significantly increased fever abdominal pain, perineal complaints, breast complaints, incisional complaints, or anything else that concerned her. She was additionally instructed to have nothing in the vagina for at least 6 weeks time to include intercourse. She understood her instructions and agrees to follow up as noted above. Discharge medications included [id number] analgesic pain medications as well as a prescription for Tylenol 3, 1-2 by mouth every 6 hours when necessary pain, #12 dispensed with no refills. Maternal blood type is O- and cord blood was sent for evaluation for the necessity of RhoGAM prior to discharge. Rubella status is immune. Discharge hemoglobin and hematocrit were 13.1 and 40.7 respectively. Procedures: #1. Repeat low transverse section #2. Intraoperative bilateral tubal occlusion with Filshie clips Patient Condition at Discharge: Good Plan - Discharge Summary Discharge Rx Participant: Yes New Discharge Prescriptions: No Action Levothyroxine Sodium 88 mcg PO DAILY Diclegis 10-10mg 2 tab PO HS Albuterol Inhaler [Ventolin Hfa Inhaler] 1 - 2 puff INHALATION RT-Q6H PRN PRN Reason: Shortness Of Breath Zuf-Bafe-Psxjs Acid [-U Capsule (formulary)] 1 cap PO DAILY Discharge Medication List Levothyroxine Sodium 88 mcg PO DAILY 04/27/14 [History] Albuterol Inhaler [Ventolin Hfa Inhaler] 1 - 2 puff INHALATION RT-Q6H PRN [History] Diclegis 10-10mg 2 tab PO HS 05/14/17 [History] Prf-Sjfa-Agmxg Acid [-U Capsule (formulary)] 1 cap PO DAILY 09/24 [History] Follow up Appointment(s)/Referral(s): Newton Meyers MD [Primary Care Provider] - 2 Weeks Discharge Disposition: HOME SELF-CARE
[2017-12-12] MEDS: IBUPROFEN 600 MG TAB PO PRN (11:18)
== END 2017-12-12 12:30 | disposition home or self-care (01) | DRG 783 ==
LOC: 4FBP 10:15
PROVIDERS: ADMIT Obstetrics & Gynecology; ATTEND Obstetrics & Gynecology
PROC: 0UL70CZ Occlusion of Bilateral Fallopian Tubes with Extraluminal Device, Open Approach (ICD-10-PCS; 2017-12-10)
PROC: 10D00Z1 Extraction of Products of Conception, Low, Open Approach (ICD-10-PCS; principal; 2017-12-10 12:22)
DX: O34.211 Maternal care for low transverse scar from previous cesarean delivery (principal); O99.42 Diseases of the circulatory system complicating childbirth; Z37.0 Single live birth; I48.91 Unspecified atrial fibrillation; O34.13 Maternal care for benign tumor of corpus uteri, third trimester; D25.9 Leiomyoma of uterus, unspecified; O99.52 Diseases of the respiratory system complicating childbirth; J45.909 Unspecified asthma, uncomplicated; O99.284 Endocrine, nutritional and metabolic diseases complicating childbirth; E07.9 Disorder of thyroid, unspecified; K21.9 Gastro-esophageal reflux disease without esophagitis; O99.62 Diseases of the digestive system complicating childbirth; O26.893 Other specified pregnancy related conditions, third trimester; Z67.91 Unspecified blood type, Rh negative; Z3A.40 40 weeks gestation of pregnancy; Z87.891 Personal history of nicotine dependence; Z79.890 Hormone replacement therapy; Z79.899 Other long term (current) drug therapy; Z88.1 Allergy status to other antibiotic agents; Z82.49 Family history of ischemic heart disease and other diseases of the circulatory system; Z30.2 Encounter for sterilization
CPT/HCPCS: 85025; 85461; 86850; 86900; 86901; 90686; 90715

== ENCOUNTER 2018-12-23 13:15 | Emergency (ER) | payer BC ==
[2018-12-23 13:20] VITALS: TEMP 97.4
--- NOTE | 2018-12-23 14:48 | XR ---
EXAMINATION TYPE: XR chest 2V DATE OF EXAM: 12/23/2018 COMPARISON: Prior chest x-ray 04/27/2014 HISTORY: Dysrhythmia, palpitations TECHNIQUE: Frontal and lateral views of the chest are obtained. FINDINGS: Patient is rotated. There are overlying cardiac leads. There is no focal air space opacity, pleural effusion, or pneumothorax seen. The cardiac silhouette size is within normal limits. The osseous structures are intact. IMPRESSION: No acute cardiopulmonary process.
--- NOTE | 2018-12-23 14:52 | ED ---
Arrhythmia/Palpitations HPI - General Chief Complaint: Arrhythmia/Palpitations Stated Complaint: Palpitations Time Seen by Provider: 12/23/18 13:24 Source: patient, RN/MD, RN notes reviewed Mode of arrival: ambulatory Limitations: no limitations - History of Present Illness Initial Comments: Is a 33-year-old female history of atrial fibrillation in the past who states she's been having palpitations with increased heart rate and source of breath. She did use a monitor on herself because she had an elevated heart rate. No overt chest pain no fevers chills nausea vomiting sweats or other symptoms. MD Complaint: palpitations - Related Data Home Medications Medication Instructions Recorded Confirmed Levothyroxine Sodium 88 mcg PO DAILY 04/27/14 12/23/18 Albuterol Inhaler [Ventolin Hfa 1 - 2 puff INHALATION RT-Q6H PRN 05/14/17 12/23/18 Inhaler] Flecainide Acetate [Tambocor] 200 mg PO DAILY PRN 12/23/18 12/23/18 Metoprolol Tartrate [Lopressor] 50 mg PO DAILY PRN 12/23/18 12/23/18 Previous Rx's Medication Instructions Recorded Flecainide [Tambocor] 100 mg PO Q12HR #30 tablet 12/23/18 Allergies Allergy/AdvReac Type Severity Reaction Status Date / Time ciprofloxacin [From Cipro] Allergy Anaphylaxis Verified 12/23/18 13:27 ciprofloxacin HCl Allergy Anaphylaxis Verified 12/23/18 13:27 [From Cipro] Review of Systems ROS Statement: Those systems with pertinent positive or pertinent negative responses have been documented in the HPI. ROS Other: All systems not noted in ROS Statement are negative. Past Medical History Past Medical History: Atrial Fibrillation, Asthma, Thyroid Disorder History of Any Multi-Drug Resistant Organisms: None Reported Past Surgical History: Breast Surgery, Section, Tubal Ligation Additional Past Surgical History / Comment(s): reduction Past Anesthesia/Blood Transfusion Reactions: No Reported Reaction Past Psychological History: No Psychological Hx Reported Smoking Status: Former smoker Past Alcohol Use History: Occasional Past Drug Use History: None Reported - Past Family History Father Family Medical History: AFIB, Hypertension General Exam - General Exam Comments Initial Comments: Is a well-developed well-nourished awake alert oriented x 3 female Limitations: no limitations General appearance: alert, in no apparent distress Head exam: Present: atraumatic, normocephalic, normal inspection Eye exam: Present: normal appearance, PERRL, EOMI. Absent: scleral icterus, conjunctival injection, periorbital swelling ENT exam: Present: normal exam, mucous membranes moist Neck exam: Present: normal inspection. Absent: tenderness, meningismus, lymphadenopathy Respiratory exam: Present: normal lung sounds bilaterally. Absent: respiratory distress, wheezes, rales, rhonchi, stridor Cardiovascular Exam: Present: regular rate, normal rhythm, normal heart sounds. Absent: systolic murmur, diastolic murmur, rubs, gallop, clicks GI/Abdominal exam: Present: soft, normal bowel sounds. Absent: distended, tenderness, guarding, rebound, rigid Extremities exam: Present: normal inspection, full ROM, normal capillary refill. Absent: tenderness, pedal edema, joint swelling, calf tenderness Back exam: Present: normal inspection Neurological exam: Present: alert, oriented X3, CN II-XII intact Psychiatric exam: Present: normal affect, normal mood Skin exam: Present: warm, dry, intact, normal color. Absent: rash Course Vital Signs 12/23/18 12/23/18 13:17 16:02 Temperature 97.4 F L Pulse Rate 85 81 Respiratory 18 16 Rate Blood Pressure 132/92 119/73 O2 Sat by Pulse 97 99 Oximetry - Reevaluation(s) Reevaluation #1: 12/23/18 16:33 I did reevaluate patient several occasions I also did discuss the case with Dr. Major. EKG Findings - EKG Results: EKG: interpreted by ERMD (Sinus rhythm with PACs rate was 81. Interval 172 QRS 90 QT since QTC 368/427 nonspecific T-wave configuration) Medical Decision Making - Medical Decision Making The patient was observed and did receive IV magnesium 2 augment her serum level. She'll be discharged she is to be on flecainide 100 mg twice a day follow-up with her snagger and return when necessary additionally she did have some elevated liver enzymes she did note that she was not feeling well last week he did have what appeared be a gastroenteritis about a week ago when [place] was [place] of [place]. - Lab Data Result diagrams: 12/23/18 13:43 12/23/18 13:43 Lab Results 12/23/18 12/23/18 12/23/18 Range/Units 13:43 13:43 13:43 WBC 5.4 (3.8-10.6) k/uL RBC 4.49 (3.80-5.40) m/uL Hgb 12.4 (11.4-16.0) gm/dL Hct 37.7 (34.0-46.0) % MCV 84.0 (80.0-100.0) fL MCH 27.5 (25.0-35.0) pg MCHC 32.8 (31.0-37.0) g/dL RDW 12.9 (11.5-15.5) % Plt Count 163 (150-450) k/uL Neutrophils % (Manual) 53 % Lymphocytes % (Manual) 30 % Monocytes % (Manual) 17 % Neutrophils # (Manual) 2.86 (1.3-7.7) k/uL Lymphocytes # (Manual) 1.62 (1.0-4.8) k/uL Monocytes # (Manual) 0.92 (0-1.0) k/uL Nucleated RBCs 0 (0-0) /100 WBC PT 9.7 (9.0-12.0) sec INR 0.9 (<1.2) APTT 24.2 (22.0-30.0) sec Sodium 139 (137-145) mmol/L Potassium 3.9 (3.5-5.1) mmol/L Chloride 104 (98-107) mmol/L Carbon Dioxide 26 (22-30) mmol/L Anion Gap 9 mmol/L BUN 17 (7-17) mg/dL Creatinine 0.81 (0.52-1.04) mg/dL Est GFR (CKD-EPI)AfAm >90 (>60 ml/min/1.73 sqM) Est GFR (CKD-EPI)NonAf >90 (>60 ml/min/1.73 sqM) Glucose 106 H (74-99) mg/dL Calcium 9.3 (8.4-10.2) mg/dL Magnesium 1.9 (1.6-2.3) mg/dL Total Bilirubin 0.6 (0.2-1.3) mg/dL AST 106 H (14-36) U/L ALT 220 H (9-52) U/L Alkaline Phosphatase 158 H (38-126) U/L Troponin I (0.000-0.034) ng/mL Total Protein 7.2 (6.3-8.2) g/dL Albumin 4.2 (3.5-5.0) g/dL TSH 1.920 (0.465-4.680) mIU/L 12/23/18 Range/Units 13:43 WBC (3.8-10.6) k/uL RBC (3.80-5.40) m/uL Hgb (11.4-16.0) gm/dL Hct (34.0-46.0) % MCV (80.0-100.0) fL MCH (25.0-35.0) pg MCHC (31.0-37.0) g/dL RDW (11.5-15.5) % Plt Count (150-450) k/uL Neutrophils % (Manual) % Lymphocytes % (Manual) % Monocytes % (Manual) % Neutrophils # (Manual) (1.3-7.7) k/uL Lymphocytes # (Manual) (1.0-4.8) k/uL Monocytes # (Manual) (0-1.0) k/uL Nucleated RBCs (0-0) /100 WBC PT (9.0-12.0) sec INR (<1.2) APTT (22.0-30.0) sec Sodium (137-145) mmol/L Potassium (3.5-5.1) mmol/L Chloride (98-107) mmol/L Carbon Dioxide (22-30) mmol/L Anion Gap mmol/L BUN (7-17) mg/dL Creatinine (0.52-1.04) mg/dL Est GFR (CKD-EPI)AfAm (>60 ml/min/1.73 sqM) Est GFR (CKD-EPI)NonAf (>60 ml/min/1.73 sqM) Glucose (74-99) mg/dL Calcium (8.4-10.2) mg/dL Magnesium (1.6-2.3) mg/dL Total Bilirubin (0.2-1.3) mg/dL AST (14-36) U/L ALT (9-52) U/L Alkaline Phosphatase (38-126) U/L Troponin I <0.012 (0.000-0.034) ng/mL Total Protein (6.3-8.2) g/dL Albumin (3.5-5.0) g/dL TSH (0.465-4.680) mIU/L - Radiology Data Radiology results: report reviewed (I did review the imaging and report no acute findings.), image reviewed Disposition Clinical Impression: PAC (premature atrial contraction), Palpitations Disposition: HOME SELF-CARE Condition: Good Instructions (If sedation given, give patient instructions): Heart Palpitations (ED), Premature Atrial Contractions (ED) Prescriptions: Flecainide [Tambocor] 100 mg PO Q12HR #30 tablet Is patient prescribed a controlled substance at d/c from ED?: No Referrals: Art Bello DO [Primary Care Provider] - 1-2 days Victorino Major MD [STAFF PHYSICIAN] - 1-2 days
[2018-12-23] MEDS ORDERED: FLECAINIDE 50 MG TAB PO STA (14:58)
[2018-12-23 15:14] LABS: HCT 37.7 % (34.0-46.0); HGB 12.4 gm/dL (11.4-16.0); MCH 27.5 pg (25.0-35.0); MCHC 32.8 g/dL (31.0-37.0); Platelet Count 163 k/uL (150-450); RBC 4.49 m/uL (3.80-5.40); RDW 12.9 % (11.5-15.5); WBC 5.4 k/uL (3.8-10.6)
[2018-12-23 15:30] LABS: ALT 220 U/L (9-52); AST 106 U/L (14-36); African American GFR (CKD) >90 (>60 ml/min/1.73 sqM); Albumin 4.2 g/dL (3.5-5.0); Alkaline Phosphatase 158 U/L (38-126); Anion Gap 9 mmol/L; Blood Urea Nitrogen 17 mg/dL (7-17); Calcium 9.3 mg/dL (8.4-10.2); Carbon Dioxide 26 mmol/L (22-30); Chloride 104 mmol/L (98-107); Glucose 106 mg/dL (74-99); Magnesium 1.9 mg/dL (1.6-2.3); Potassium 3.9 mmol/L (3.5-5.1); Sodium 139 mmol/L (137-145); Total Bilirubin 0.6 mg/dL (0.2-1.3); Total Protein 7.2 g/dL (6.3-8.2)
[2018-12-23 15:32] LABS: INR 0.9 (<1.2); Partial Thromboplastin Time 24.2 sec (22.0-30.0); Prothrombin Time 9.7 sec (9.0-12.0)
[2018-12-23] MEDS ORDERED: MAGNESIUM SULFATE-D5W PMX 1 GM in DEXTROSE/WATER 1 100ML.BAG IVPB ONE (15:37)
[2018-12-23 15:38] LABS: Lymphocytes # (M) 1.62 k/uL (1.0-4.8); Monocytes # (M) 0.92 k/uL (0-1.0); Neutrophils % (M) 53 %; Nucleated Red Blood Cells 0 /100 WBC (0-0); Total Cells Counted 100
[2018-12-23 16:03] VITALS: RESP 16
[2018-12-23 17:05] VITALS: BP 123/86; PULSE 83
== END 2018-12-23 17:03 | disposition home or self-care (01) ==
LOC: EC 13:15
DX: I49.1 Atrial premature depolarization (principal); R74.8 Abnormal levels of other serum enzymes; R06.02 Shortness of breath; J45.909 Unspecified asthma, uncomplicated; E07.9 Disorder of thyroid, unspecified; Z87.891 Personal history of nicotine dependence; Z88.1 Allergy status to other antibiotic agents; Z79.890 Hormone replacement therapy; Z79.899 Other long term (current) drug therapy; Z86.79 Personal history of other diseases of the circulatory system; Z82.49 Family history of ischemic heart disease and other diseases of the circulatory system
CPT/HCPCS: 36415; 93005; 80053; 83735; 84443; 84484; 85025; 85610; 85730; 71046; 99285; 96365; J3475

== ENCOUNTER → 2018-12-29 | Outpatient (CLI) | payer BC ==
[2018-12-29 12:25] LABS: Chol/HDL Ratio 3.9; LDL Cholesterol,Calculated 67.2 mg/dL (0.0-131.0); VLDL Calculation 19.8 mg/dL (5.00-40.00)
== END ==
LOC: LABWHC1 07:37
PROVIDERS: ATTEND Family Medicine
DX: R94.5 Abnormal results of liver function studies (principal)
CPT/HCPCS: 36415; 80061; 84450; 84460

== ENCOUNTER → 2019-02-09 | Outpatient (CLI) | payer BC ==
[2019-02-09 20:52] LABS: Albumin 4.6 g/dL (3.80-4.90); Bilirubin, Conjugated 0.2 mg/dL (0.20-0.40); Bilirubin,Unconjugated 0.4 mg/dL; Globulin 2.3 g/dL (1.6-3.3); Total Bilirubin 0.6 mg/dL (0.3-1.2); Total Protein 6.9 g/dL (6.2-8.2)
[2019-02-12 01:10] LABS: T4, Free (Free Thyroxine) 1.2 ng/dL (0.80-1.80)
== END | disposition home or self-care (01) ==
LOC: LABWHC1 07:43
PROVIDERS: ATTEND Family Medicine
DX: R79.89 Other specified abnormal findings of blood chemistry (principal)
CPT/HCPCS: 36415; 80076; 84439; 84443

== ENCOUNTER → 2019-03-26 | Outpatient (CLI) | payer BC | END | disposition home or self-care (01) | LOC: LABWHC1 15:32 | PROVIDERS: ATTEND Physician Assistant Medical | DX: L70.0 Acne vulgaris (principal) | CPT/HCPCS: 36415; 84702 ==

== ENCOUNTER → 2019-08-03 | Outpatient (CLI) | payer BC ==
[2019-08-03 09:02] LABS: HCT 40.2 % (34.0-46.0); HGB 13.8 gm/dL (11.4-16.0); MCH 29.2 pg (25.0-35.0); MCHC 34.3 g/dL (31.0-37.0); MCV 85.2 fL (80.0-100.0); Mean Platelet Volume 9.4; Platelet Count 230 k/uL (150-450); RBC 4.72 m/uL (3.80-5.40); RDW 12.5 % (11.5-15.5); WBC 6.1 k/uL (3.8-10.6)
[2019-08-03 09:32] LABS: African American GFR (CKD) >90 (>60 ml/min/1.73 sqM); Anion Gap 7 mmol/L; Blood Urea Nitrogen 19 mg/dL (7-17); Carbon Dioxide 27 mmol/L (22-30); Chloride 105 mmol/L (98-107); Glucose 88 mg/dL (74-99); Non-African American GFR(CKD) >90 (>60 ml/min/1.73 sqM); Potassium 4.2 mmol/L (3.5-5.1); Sodium 139 mmol/L (137-145)
== END | disposition home or self-care (01) ==
LOC: LABWHC1 07:46
PROVIDERS: ATTEND Internal Medicine Clinical Cardiac Electrophysiology
DX: Z01.818 Encounter for other preprocedural examination (principal); U07.1 COVID-19; I48.0 Paroxysmal atrial fibrillation
CPT/HCPCS: 36415; 80051; 82565; 82947; 84520; 85027; 87635

== ENCOUNTER 2019-08-05 05:56 | Day surgery (SDC) | payer BC ==
[2019-08-03 16:04] VITALS: BMI 36.0
[2019-08-05] MEDS ORDERED: SODIUM CHLORIDE 0.9% 1,000 ML IV SCH (05:58)
[2019-08-05] MEDS ORDERED: LACTATED RINGERS 1,000 ML IV SCH (05:58)
[2019-08-05] MEDS ORDERED: SODIUM CHLORIDE 0.9% 1,000 ML IV ONE (06:32)
[2019-08-05] MEDS: METOPROLOL TARTRATE 25 MG TAB PO SCH (07:21)
[2019-08-05] MEDS ORDERED: LIDOCAINE 1% INJ 10MG/ML (20 ML MDV) ONE ×2 (07:21→07:27)
[2019-08-05] MEDS: RIVAROXABAN 20 MG TAB PO SCH (07:22)
[2019-08-05] MEDS ORDERED: ALFENTANIL 500 MCG/ML 2 ML AMP IV ONE (07:27)
[2019-08-05] MEDS ORDERED: HYDROmorphone (PF) 1 MG/ML ONE (07:27)
[2019-08-05] MEDS ORDERED: SUCCINYLCHOLINE CHLORIDE 100 MG/5 ML SYR IV ONE (07:27)
[2019-08-05] MEDS ORDERED: PROPOFOL 10 MG/ML 20 ML VIAL IV ONE (07:27)
[2019-08-05] MEDS ORDERED: PROTAMINE SULFATE 10 MG/ML 5 ML VIAL IV ONE (07:27)
[2019-08-05] MEDS ORDERED: ISOPROTERENOL 250 MCG/1.25 ML SYR IV ONE (07:27)
[2019-08-05] MEDS ORDERED: MIDAZOLAM 2 MG/2 ML VIAL ONE (07:27)
[2019-08-05] MEDS ORDERED: HEPARIN SODIUM,PORCINE 10,000 UNIT/ML 1 ML VIAL ONE (07:27)
--- NOTE | 2019-08-05 07:48 | P.HPCAR ---
History of Present Illness This is Dr. Major dictating an H/P on this patient The patient was interviewed and examined IMPRESSION / ASSESSMENT: Paroxysmal atrial fibrillation with RVR Frequent breakthrough episodes on flecainide 100 mg twice daily Bradycardia and prolonged postconversion pauses Hypothyroidism PLAN: Continue anticoagulation Proceed with pulmonary vein isolation for management of drug refractory paroxysmal atrial fibrillation HPI Recurrent episodes of palpitations that began when she was For the first few years she had very infrequent episodes Over the last 2 years or so she's had more and more frequent episodes requiring increasing doses of flecainide She is finally on 100 mg twice daily flecainide when she started developing long postconversion pauses following breakthrough episodes of atrial fibrillation The dose of flecainide was reduced on account of this The dose of metoprolol was also reduced She continues to experience episodes of palpitations ROS: No fever chills or rigors, no cough, phlegm or expectoration, no nausea, vomiting or diarrhea, no hematuria, dysuria, no musculoskeletal complaints, no strokes or seizures, no skin lesions. EXAMINATION: 121/83 mmHg pulse rate in the 70s normal respirations afebrile 97.8F Breath sounds are clear no rhonchi no crackles Heart sounds S1 and S2 are normal no murmurs or gallops no rub No lower extremity edema Abdomen soft No JVD REVIEW OF LABS, ECG & MEDICAL DATA Urine hCG not detected Hemoglobin 13.8 Hematocrit 40.2, platelet count 230,000 BUN 19 creatinine 0.73 Sodium 139 potassium 4.2 Last TSH 0.88 Physical Exam Vitals: Vital Signs Temp Pulse Resp BP Pulse Ox 08/05/19 06:23 97.8 F 71 16 121/83 95 Intake and Output 08/04/19 08/05/19 08/05/19 22:59 06:59 14:59 Intake Total 100 0 Balance 100 0 Intake: IV 100 0 Other: Weight 108.4 kg Past Medical History Past Medical History: Atrial Fibrillation, Asthma, Thyroid Disorder History of Any Multi-Drug Resistant Organisms: None Reported Past Surgical History: Breast Surgery, Section, Tubal Ligation Additional Past Surgical History / Comment(s): reduction Past Anesthesia/Blood Transfusion Reactions: Motion Sickness Smoking Status: Former smoker - Past Family History Father Family Medical History: AFIB, Hypertension Physical Examination Vital Signs Temp Pulse Resp BP Pulse Ox 08/05/19 06:23 97.8 F 71 16 121/83 95 Intake and Output 08/04/19 08/05/19 08/05/19 22:59 06:59 14:59 Intake Total 100 0 Balance 100 0 Intake: IV 100 0 Other: Weight 108.4 kg Results Current Medications Generic Name Dose Route Start Last Admin Trade Name Freq PRN Reason Stop Dose Admin Flecainide Acetate 75 mg 08/05/19 09:00 08/05/19 07:21 Tambocor PO 75 mg QAM TED Administration Lactated Ringer's 1,000 mls @ 20 mls/hr 08/05/19 05:58 Lactated Ringers IV .Q24H TED Sodium Chloride 1,000 mls @ 20 mls/hr 08/05/19 05:58 Saline 0.9% IV .Q24H TED Levothyroxine Sodium 88 mcg 08/05/19 06:30 Synthroid PO 0630 TED Metoprolol Tartrate 25 mg 08/05/19 09:00 08/05/19 07:21 Lopressor PO 25 mg DAILY TED Administration Non-Formulary Medication 30 mg 08/05/19 09:00 Isotretinoin [Isotretinoin] PO DAILY TED Rivaroxaban 20 mg 08/05/19 09:00 08/05/19 07:22 Xarelto PO 20 mg DAILY TED Administration Intake and Output 08/04/19 08/05/19 08/05/19 22:59 06:59 14:59 Intake Total 100 0 Balance 100 0 Intake: IV 100 0 Other: Weight 108.4 kg
[2019-08-05] MEDS ORDERED: HEPARIN SOD,PORK IN 0.45% NACL 25,000 UNIT in 0.45% NACL 1 250ML.BAG IV ONE (08:23)
[2019-08-05] MEDS ORDERED: LIDOCAINE 1% INJ 10MG/ML (20 ML MDV) SQ ONE (08:29)
[2019-08-05] MEDS ORDERED: ISOTRETINOIN 30 MG PO SCH (09:00)
[2019-08-05] MEDS ORDERED: FLECAINIDE 50 MG TAB PO SCH (09:00)
[2019-08-05] MEDS ORDERED: IOPAMIDOL-370 100ML BTL INJ ONE (11:07)
[2019-08-05] MEDS ORDERED: HYDROcodone/APAP 5-325MG 1 EACH TAB PO PRN (12:47)
[2019-08-05] MEDS ORDERED: ACETAMINOPHEN IV (For NPO) 1,000 MG in EMPTY BAG 1 BAG IVPB ONE (12:47)
[2019-08-05] MEDS ORDERED: ACETAMINOPHEN TAB 325 MG TAB PO PRN (12:47)
--- NOTE | 2019-08-05 12:52 | P.PCN ---
Preoperative Diagnosis: Diagnosis Atrial fibrillation, symptomatic, refractory to therapy, paroxysmal Result No left atrial appendage mass seen on intracardiac echo Successful pulmonary vein isolation of all veins using cryo-ablation Complete entrance block in all 4 veins confirmed No evidence for phrenic nerve injury Esophageal deflection YES , right-sided esophagus Right bundle branch block aberrancy during atrial pacing Occasional left bundle branch block aberrancy during atrial pacing Procedure details Patient was brought to the EP lab in a fasting state. Written informed consent was obtained prior to the procedure. Procedure performed under general anesthesia After initial muscle relaxant use, muscle relaxants were not given thereafter in order to assess phrenic nerve during procedure. Patient prepped and draped as per protocol Full cryo-set up with standard preparation of the cryoablation tools done. Femoral Venous access obtained on the right and left groins Venous and arterial Sheaths placed. Diagnostic catheters for the high right atrium, phrenic nerve stimulation and pacing, His bundle, RV and coronary sinus placed Intracardiac echo catheter placed. Long sheath placed in the right atrium Left and right transseptal catheterization performed under intracardiac echo guidance. Intravenous heparin with aCT above 300 Later, catheter positioning and balloon positioning in the left atrium, under intracardiac echo guidance Diagnostic EP study with Drug infusion Coronary sinus pacing and recording Baseline measurements Sinus cycle length 7:30 milliseconds, ND interval 168, QRS 99 ms and QT 395 ms AH interval 69 ms and HV interval 45 ms Atrial pacing performed from the high right atrium and the coronary sinus RV pacing, VA Wenckebach block 400 ms Sinus node recovery time in a paced cycle length of 600 ms was 1078 ms AV node Wenckebach block 350 ms High-dose Isuprel was employed and burst stimulation as well as extra stimulation was performed after double extrastimuli Right bundle branch block aberrancy was noted to pacing cycle length of 270 ms 1 episode of left bundle branch block aberrancy during atrial pacing also No evidence of delta waves No evidence for slow pathway conduction No other SVT induced Transseptal catheterization performed RA pressure LA pressure Transseptal catheterization performed with standard sheath. The cryoablation sheath was then placed with an over the wire exchange without any acute complications. All 4 pulmonary veins were isolated in the following sequence: Left superior followed by left inferior followed by right superior followed by right inferior The cryo-ablation balloon was placed at the os of each vein 1.5 mL of IV dye was injected to confirm an occluded vein Goal during cryoablation was to achieve complete occlusion of the pulmonary vein, achieve -30 degrees C at 30 seconds and achieve -40 degrees C at 60 seconds and a time to effect of less than 60-90 seconds, . If not the balloon was repositioned to obtain this result After completion of Cryoblation with durations from 180-240 seconds, entrance block was confirmed with the Attain circular catheter in a roving fashion around the antrum of the pulmonary veins Phrenic nerve pacing was performed from the SVC, right innominate vein area and diaphragm voltage was monitored. Diaphragmatic contractions were also monitored manually for strength of contraction. Parameter goals for each cryo freeze Complete occlusion of the appropriate vein -30 degrees C by 30 seconds -40 degrees C by 60 seconds Minimum between minus 40-55 degrees C Thaw time greater than 10 seconds Balloon visualized by intracardiac echo The esophagus was intubated. Esophageal Temperature monitoring with a CIRCA catheter formed. Esophageal deflection for hypothermia of the esophagus below 30 degrees C Left superior pulmonary vein Complete isolation, entrance block Left inferior pulmonary vein Complete isolation, entrance block Right superior pulmonary vein, during phrenic nerve pacing Complete isolation, entrance block Right inferior pulmonary vein, during phrenic nerve pacing Complete isolation, entrance block At the end of the procedure the Achieve catheter was once again used to check for entrance block Phrenic nerve stimulation was performed to confirm diaphragmatic stimulation the end of the procedure Cine fluoroscopy was performed at the very end of the procedure to confirm movement of both diaphragms with inspiration and expiration At the end of the procedure the patient was extubated Heparin was reversed Venous sheaths were removed and hemostasis assured Procedures performed (PVI - CRYO Ablation) Diagnostic EP study with attempted arrhythmia induction CS pacing and recording Left and right transseptal catheterization Catheter the mapping of the tachycardia (NOT 3D mapping) Intracardiac echocardiography Pulmonary vein isolation with transseptal and comprehensive EPS, [id number] Drug Infusion [id number]
[2019-08-05] MEDS ORDERED: ONDANSETRON 4 MG/2 ML VIAL IVP ONE (13:05)
[2019-08-05] MEDS: LEVOTHYROXINE 88 MCG TAB PO SCH (13:31)
[2019-08-05] MEDS ORDERED: COLCHICINE 0.6 MG EACH PO PRN (19:13)
[2019-08-05] MEDS: FLECAINIDE 50 MG TAB PO SCH (20:39)
[2019-08-06] MEDS: LEVOTHYROXINE 88 MCG TAB PO SCH (06:14)
[2019-08-06 08:32] VITALS: BP 122/76; PULSE 79; RESP 18; TEMP 98.4
[2019-08-06] MEDS: RIVAROXABAN 20 MG TAB PO SCH (08:38)
[2019-08-06] MEDS: METOPROLOL TARTRATE 25 MG TAB PO SCH (08:38)
[2019-08-06] MEDS: FLECAINIDE 50 MG TAB PO SCH (08:39)
--- NOTE | 2019-08-06 15:19 | P.DS ---
Providers Attending physician: Victorino Major Primary care physician: [facility] Course: This is a pleasant 34-year-old female who came in for elective A. fib ablation. She underwent the procedure yesterday without complication. Bilateral groins with suture in place. Suture was removed successfully. No evidence of hematoma or bleeding. She did have an episode of losing on the right side yesterday when she stood up. No significant blood loss. She denies symptoms of chest pain, dizziness, shortness of breath or palpitations. She has a vague throat ache. Blood pressure 122/76 heart rate 79 afebrile maintaining oxygen saturation on room air. GENERAL: Well-appearing, well-nourished and in no acute distress. NECK: Supple without JVD or thyromegaly. LUNGS: Breath sounds clear to auscultation bilaterally. Respiration equal and unlabored. No wheezes, rales or rhonchi. HEART: Regular rate and rhythm without murmurs, rubs or gallops. S1 and S2 heard. EXTREMITIES: Normal range of motion, no edema. No clubbing or cyanosis. Peripheral pulses intact. Bilateral groin access site soft, nontender, no ecchymosis or hematoma. ASSESSMENT Paroxysmal atrial fibrillation status post successful cryoablation PLAN Decrease flecainide to 50 mg twice a day. Colchicine 0.6 mg twice a day 1 week to be given. Stable for discharge. Follow-up in the office with Dr. Burns in one week. Nurse Practitioner note has been reviewed, I agree with a documented findings and plan of care. Patient was seen and examined. Patient Condition at Discharge: Stable Plan - Discharge Summary Discharge Rx Participant: Yes New Discharge Prescriptions: New Colchicine [Colcrys] 0.6 mg PO BID PRN #14 each PRN Reason: pain Flecainide [Tambocor] 50 mg PO BID #180 tab Continue Levothyroxine Sodium 88 mcg PO DAILY Rivaroxaban [Xarelto] 20 mg PO DAILY Multivitamins, Thera [Multivitamin (formulary)] 1 tab PO DAILY Metoprolol Tartrate 25 mg PO DAILY ISOtretinoin [Isotretinoin] 30 mg PO DAILY Discontinued Flecainide [Tambocor] 75 mg PO QAM Flecainide [Tambocor] 50 mg PO HS Discharge Medication List Levothyroxine Sodium 88 mcg PO DAILY 04/27/14 [History] ISOtretinoin [Isotretinoin] 30 mg PO DAILY 08/03/19 [History] Metoprolol Tartrate 25 mg PO DAILY 08/03/19 [History] Multivitamins, Thera [Multivitamin (formulary)] 1 tab PO DAILY 08/03/19 [History] Rivaroxaban [Xarelto] 20 mg PO DAILY 08/03/19 [History] Colchicine [Colcrys] 0.6 mg PO BID PRN #14 each 08/06/19 [Rx] Flecainide [Tambocor] 50 mg PO BID #180 tab 08/06/19 [Rx] Follow up Appointment(s)/Referral(s): Victorino Major MD [STAFF PHYSICIAN] - 08/13/19 9:15 am (Appt with Cardiology) Patient Instructions/Handouts: Electrophysiology Study (DC) Activity/Diet/Wound Care/Special Instructions: See Activity Restriction Instructions Discharge Disposition: HOME SELF-CARE
== END 2019-08-06 10:00 | disposition home or self-care (01) ==
LOC: CATHEP 05:56 → 1SOBS 11:17 → CATHEP 08-06 10:00
PROVIDERS: ATTEND Internal Medicine Clinical Cardiac Electrophysiology
DX: I48.0 Paroxysmal atrial fibrillation (principal); I45.10 Unspecified right bundle-branch block; E03.9 Hypothyroidism, unspecified; J45.909 Unspecified asthma, uncomplicated; Z79.01 Long term (current) use of anticoagulants; Z79.899 Other long term (current) drug therapy; Z87.891 Personal history of nicotine dependence; Z98.51 Tubal ligation status; Z98.891 History of uterine scar from previous surgery; Z82.49 Family history of ischemic heart disease and other diseases of the circulatory system; Z88.1 Allergy status to other antibiotic agents
CPT/HCPCS: 85347; 93623; 93662; 93609; 93656; 81025 ×2; C1759; C1769 ×5; C1894 ×2; C1730 ×2; C1893; C1733; J2250; J2720; J1644 ×2; J2405; J2001; J1170; J0131; J0330; J2704; Q9967

== ENCOUNTER → 2019-09-30 | Outpatient (CLI) | payer BC ==
--- NOTE | 2019-10-01 09:03 | MM ---
Reason for exam: screening (asymptomatic). History: Family history of breast cancer in mother at age 42 and breast cancer in maternal grandmother. Took hormonal contraceptives for 2 years. Physical Findings: A clinical breast exam by your physician is recommended on an annual basis and results should be correlated with mammographic findings. MG 3D Screening Mammo W/Cad Bilateral CC and MLO view(s) were taken. There are scattered fibroglandular densities. Benign appearing bilateral calcifications. No significant changes when compared with prior studies. ASSESSMENT: Benign, BI-RAD 2 RECOMMENDATION: Routine screening mammogram of both breasts in 1 year.
== END | disposition home or self-care (01) ==
LOC: RADMAMWWP 08:17
PROVIDERS: ATTEND Obstetrics & Gynecology
DX: Z12.31 Encounter for screening mammogram for malignant neoplasm of breast (principal); Z80.3 Family history of malignant neoplasm of breast
CPT/HCPCS: 77063; 77067

== ENCOUNTER → 2019-12-08 | Outpatient (CLI) | payer BC ==
[2019-12-08 14:45] LABS: Basophils % (A) 0 %; Eosinophils # (A) 0.1 k/uL (0-0.7); Eosinophils % (A) 2 %; HCT 40.2 % (34.0-46.0); HGB 13.3 gm/dL (11.4-16.0); Lymphocytes # (A) 2.3 k/uL (1.0-4.8); Lymphocytes % (A) 31 %; MCH 27.6 pg (25.0-35.0); MCHC 33.1 g/dL (31.0-37.0); MCV 83.3 fL (80.0-100.0); Mean Platelet Volume 8.6; Monocytes # (A) 0.4 k/uL (0-1.0); Monocytes % (A) 6 %; Neutrophils # (A) 4.2 k/uL (1.3-7.7); Neutrophils % (A) 58 %; Platelet Count 230 k/uL (150-450); RBC 4.82 m/uL (3.80-5.40); RDW 12.2 % (11.5-15.5); WBC 7.2 k/uL (3.8-10.6)
== END | disposition home or self-care (01) ==
LOC: LABPAT 10:37
PROVIDERS: ATTEND Obstetrics & Gynecology
DX: Z01.818 Encounter for other preprocedural examination (principal); I48.91 Unspecified atrial fibrillation; N92.0 Excessive and frequent menstruation with regular cycle
CPT/HCPCS: 85025; 93005

== ENCOUNTER 2019-12-21 07:15 | Day surgery (SDC) | payer BC ==
[2019-12-16 11:49] VITALS: BMI 35.7
--- NOTE | 2019-12-20 14:10 | HP ---
HISTORY AND PHYSICAL HISTORY OF PRESENT ILLNESS: The patient is a 3, para 2-1-0-2, who presented to the office with over a year of increasingly heavy bleeding at which time she was also found bleeding through and around maximal protection. She had an ultrasound done in the office which shows a possible endometrial polyp as well as possible adenomyosis. She does have a tubal ligation in place. She denies any intermenstrual bleeding. Given the polyp, the decision was made to proceed with diagnostic hysteroscopy with D and C and possible polypectomy. PAST MEDICAL HISTORY: Significant for mild asthma. She also had a history of atrial fibrillation during her first . She is also known to be hypothyroid. SURGICAL HISTORY: She had bilateral breast reductive surgery as well as section on 2 separate occasions. She additionally underwent a medical interruption of for significant genetic defects and has also had a cardiac ablation earlier this year. There have been no issues with the anesthetic. OBSTETRICAL HISTORY: 3, para 2-1-0-2 with 2 term deliveries and a history of a medical interruption of at 21 weeks for abnormal chromosomes. Method of contraception is tubal ligation performed during the second section. GYNECOLOGIC HISTORY: Unremarkable with no history of any infections to include STDs. FAMILY HISTORY: Noncontributory. 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 She is a nonsmoker and denies any significant alcohol or any other social concerns. CURRENT MEDICATIONS: Include albuterol metered-dose inhaler as needed, flecainide 100 mg 2 tablets every 12 hours as needed, Lopressor 50 mg half a tablet as needed, multivitamin daily, probiotics daily, Synthroid daily, and Xarelto daily. ALLERGIES: CIPRO caused a significant rash. PHYSICAL EXAMINATION: Vital signs are stable and the patient is afebrile. In general, this is a well- developed, well-nourished white female in no acute distress. Her heart has a regular rhythm and rate without murmur. Her lungs are clear to auscultation bilaterally in all [place]. Her abdomen is nondistended, has normoactive bowel sounds, soft, nontender, and without any palpable masses, hepatosplenomegaly, or hernias. Her extremities are without any cyanosis, clubbing, or edema and are nontender to palpation bilaterally. Pelvic examination demonstrates normal external genitalia and the BUS with normal vaginal mucosa and cervix. There is no cervical motion tenderness. Uterus is approximately 5 weeks in size, mid plane, mobile, nontender, normal in shape. The adnexa are normal and nontender without mass bilaterally. ASSESSMENT AND PLAN: Menorrhagia with probable endometrial polyp: We discussed options for treatment of and have opted to proceed with diagnostic hysteroscopy with D and C, and possible endometrial polypectomy. The risks and complications were discussed at length including the risks for bleeding, transfusion, infection, and injury to local structures to specifically include uterine perforation as well as possible Asherman syndrome. She has understood all this and agreed to proceed. We are scheduled for the morning of December 21, 2019. MMODL / IJN: [id number] /
[~2019-12-21 07:15] MED LIST: DEXAMETHASONE SOD PHOSPHATE 10 MG/ML 1 ML VIAL IV ONE; LACTATED RINGERS 1,000 ML IV SCH; LIDOCAINE 1% (10MG/ML) FOR IV START INTRADERMA PRN; MIDAZOLAM 2 MG/2 ML VIAL IV PRN; ONDANSETRON 4 MG/2 ML VIAL IVP ONE; Pre Op ABX Message 1 EACH MISC MISCELLANE ONE
[2019-12-21] MEDS ORDERED: ONDANSETRON 4 MG/2 ML VIAL IVP ONE (07:51)
[2019-12-21] MEDS ORDERED: PROPOFOL 10 MG/ML 20 ML VIAL IV ONE (08:03)
[2019-12-21] MEDS ORDERED: KETOROLAC 15 MG/ML 1 ML VIAL ONE (08:03)
[2019-12-21] MEDS ORDERED: MIDAZOLAM 2 MG/2 ML VIAL ONE (08:03)
[2019-12-21] MEDS ORDERED: fentaNYL (PF) 50 MCG/ML 2 ML AMP ONE (08:03)
[2019-12-21] MEDS ORDERED: LIDOCAINE 1% INJ 10MG/ML (20 ML MDV) ONE (08:03)
[2019-12-21] MEDS ORDERED: SORBITOL 3% IRRIGATION 3,000 ML IRRIGATION ONE (08:20)
[2019-12-21] MEDS ORDERED: METOCLOPRAMIDE 5 MG/ML 2 ML VIAL IVP PRN (08:36)
[2019-12-21] MEDS ORDERED: diphenhydrAMINE 50 MG/ML 1 ML VIAL IVP PRN (08:36)
[2019-12-21] MEDS ORDERED: Acetaminophen-Codeine 300-30mg TAB PO PRN ×2 (08:36)
[2019-12-21] MEDS ORDERED: SIMETHICONE 80 MG CHEWABLE PO PRN (08:36)
[2019-12-21] MEDS ORDERED: IBUPROFEN 600 MG TAB PO PRN (08:36)
[2019-12-21] MEDS ORDERED: KETOROLAC 15 MG/ML 1 ML VIAL IVP PRN (08:36)
[2019-12-21] MEDS ORDERED: ONDANSETRON 4 MG/2 ML VIAL IVP PRN (08:36)
--- NOTE | 2019-12-21 08:42 | P.OP ---
Date of Procedure: 12/21/19 Preoperative Diagnosis: #1. Menorrhagia #2. Possible endometrial polyp Postoperative Diagnosis: Same Procedure(s) Performed: #1. Diagnostic hysteroscopy #2. Dilation and curettage Anesthesia: other (Gen. by face mask) Surgeon: Newton Meyers Estimated Blood Loss (ml): 5 IV fluids (ml): 200 Urine output (ml): 20 Pathology: other (Endometrial curettings with possible polyp) Condition: stable Disposition: PACU Operative Findings: Preoperative pelvic examination demonstrated a roughly 4-5 week midplane mobile normal shaped uterus with normal adnexa bilaterally. Intraoperatively, the uterus sounded to approximately 9-10 cm. Using the hysteroscope, the fundal portion of the uterus appeared completely normal with the bilateral tubal ostia seen. There was a somewhat polypoid-looking structure on the anterior wall of the lower uterine segment just above the level of the cervix which was thought to been removed with curettage and/or polyp forceps. The patient is likely a poor candidate for vaginal hysterectomy should it become necessary. Description of Procedure: The patient was prepped and draped in usual fashion after general anesthesia was administered by the anesthesiologist. A weighted speculum was placed and the bladder drained of approximately 20 mL of clear cedrick urine. The anterior lip of the cervix was grasped with a single-tooth tenaculum and uterus sounded to approximately 9-10 cm as noted above. Serial dilation was carried out to admit a diagnostic hysteroscope. The endometrial cavity was then distended with sorbitol with the findings as noted above. The upper endometrial cavity appeared entirely normal and devoid of any pathology and the bilateral tubal ostia were seen. As we descended towards the cervical canal, there was a polypoid structure noted just above the level of the internal os of the cervix extending from the anterior wall of the uterus. After adequate hysteroscopy had been performed, the scope was set aside in favor of a medium sharp endometrial curet. Thorough and circumferential curettage was carried out onto a Telfa placed within the vaginal cavity. Polyp forceps were utilized to grasp for any remaining tissue with none noted at that time, particularly attention was paid to the anterior lower uterine segment using the polyp forceps but failed to produce tissue. After adequate curettage had been carried out, all instrumentation was removed. There was some ongoing bleeding from one side of the tenaculum which was made hemostatic with pressure. Assessment a blood loss for the entire case was approximate 5 mL or less. There were no complications. All sponge, instrument, and needle counts were correct. The patient tolerated the procedure well and proceeded to the recovery room in stable condition.
[2019-12-21] MEDS ORDERED: LACTATED RINGERS 1,000 ML IV SCH (08:45)
[2019-12-21 08:48] VITALS: RESP 16; TEMP 97.3
[2019-12-21 09:34] VITALS: BP 123/84; PULSE 78
== END 2019-12-21 09:51 | disposition home or self-care (01) ==
LOC: OR 07:15
PROVIDERS: ATTEND Obstetrics & Gynecology
DX: N85.02 Endometrial intraepithelial neoplasia [EIN] (principal); I48.91 Unspecified atrial fibrillation; J45.909 Unspecified asthma, uncomplicated; E03.9 Hypothyroidism, unspecified; E66.9 Obesity, unspecified; Z88.1 Allergy status to other antibiotic agents; Z79.890 Hormone replacement therapy; Z98.891 History of uterine scar from previous surgery; Z98.890 Other specified postprocedural states; Z68.38 Body mass index [BMI] 38.0-38.9, adult
CPT/HCPCS: 58558; 81025; 88305; J2250; J1100; J2405; J2001; J3010; J1885; J2704

== ENCOUNTER → 2020-04-18 | Outpatient (CLI) | payer BC ==
[2020-04-18 16:18] LABS: Albumin/Globulin Ratio 2.27 (1.60-3.17); Anion Gap 6.2 mmol/L (4.00-12.00); BUN/Creat Ratio 17.78 Ratio (12.00-20.00); Calcium 9.6 mg/dL (8.7-10.3); Carbon Dioxide 26.8 mmol/L (21.6-31.8); Globulin 2.2 g/dL (1.6-3.3); Non-African American GFR(CKD) 82.8 (60.0-200.0); Potassium 4.4 mmol/L (3.5-5.5); Total Bilirubin 0.4 mg/dL (0.2-1.2); Total Protein 7.2 g/dL (6.2-8.2)
== END | disposition home or self-care (01) ==
LOC: LABWHC1 09:42
PROVIDERS: ATTEND Nurse Practitioner Adult Health
DX: Z00.00 Encounter for general adult medical examination without abnormal findings (principal); E03.9 Hypothyroidism, unspecified
CPT/HCPCS: 36415; 80053; 83735; 84443; 84481

== ENCOUNTER → 2020-05-23 | Outpatient (CLI) | payer BC ==
--- NOTE | 2020-06-02 09:58 | HM ---
This is a report on the 48-hour Holter monitor. Patient rhythm is sinus. The average heart rate is 75. The minimum is 56 and maximum is 118. Had occasional APCs and occasional PVCs. Patient did not maintain a diary. Patient's markers correlated with sinus rhythm. Final impression: #1. Sinus rhythm. #2. Episodes of sinus bradycardia and tachycardia #3. Rare PVCs #4. Patient did not maintain a diary MTDD
== END | disposition home or self-care (01) ==
LOC: RADECHMAIN 12:04
PROVIDERS: ATTEND Internal Medicine Clinical Cardiac Electrophysiology
DX: R00.0 Tachycardia, unspecified (principal); R00.1 Bradycardia, unspecified
CPT/HCPCS: 93225; 93226

== ENCOUNTER → 2020-10-10 | Outpatient (CLI) | payer BC | END | disposition home or self-care (01) | LOC: LABWHC1 10:58 | PROVIDERS: ATTEND Internal Medicine | DX: E03.9 Hypothyroidism, unspecified (principal) | CPT/HCPCS: 36415; 84443 ==

== ENCOUNTER → 2020-10-19 | Outpatient (CLI) | payer BC ==
--- NOTE | 2020-10-19 14:32 | XR ---
EXAMINATION TYPE: XR foot complete RT DATE OF EXAM: 10/19/2020 COMPARISON: NONE HISTORY: Pain TECHNIQUE: Three views are submitted. FINDINGS: The osseous structures are intact. There is no acute fracture or dislocation. Arthropathy of the f irst MTP. IMPRESSION: 1. No acute fracture or dislocation. If symptoms persist, follow-up exam in 7 to 10 days could be ob tained.
== END | disposition home or self-care (01) ==
LOC: RADXRMAIN 14:01
PROVIDERS: ATTEND Internal Medicine
DX: M79.671 Pain in right foot (principal)

== ENCOUNTER → 2020-12-06 | Outpatient (CLI) | payer BC ==
--- NOTE | 2020-12-11 10:08 | MM ---
Reason for exam: screening (asymptomatic). Last mammogram was performed 1 year and 2 months ago. History: Family history of breast cancer in mother at age 42 and breast cancer in maternal grandmother. Reductions of both breasts, 2002. Took hormonal contraceptives for 2 years. Physical Findings: A clinical breast exam by your physician is recommended on an annual basis and results should be correlated with mammographic findings. MG 3D Screening Mammo W/Cad Bilateral CC, MLO, and XCCL view(s) were taken. Prior study comparison: September 30, 2019, bilateral MG 3d screening mammo w/cad. There are scattered fibroglandular densities. No significant changes when compared with prior studies. ASSESSMENT: Negative, BI-RAD 1 RECOMMENDATION: Routine screening mammogram of both breasts in 1 year.
== END | disposition home or self-care (01) ==
LOC: RADMAMWWP 11:57
PROVIDERS: ATTEND Obstetrics & Gynecology
DX: Z12.31 Encounter for screening mammogram for malignant neoplasm of breast (principal); Z80.3 Family history of malignant neoplasm of breast
CPT/HCPCS: 77063; 77067

== ENCOUNTER → 2021-02-14 | Outpatient (CLI) | payer BC ==
--- NOTE | 2021-03-08 08:29 | ECHOF ---
Exam: Echocardiogram Date: 02/14/2021 Reason for exam: A fib, S/p covid Height: 170.2 cm Weight: 103.4 kg 2D RVIDd: 3.0 cm IVSd: 1.5 cm LVIDd: 4.0 cm LVPWd: 1.3 cm IVSs: 2.0 cm LVIDs: 2.7 cm LVPWs: 1.8 cm LA Diam: 3.4 cm LAESV Index (A-L): 21.37 ml/m M-Mode Ao Diam: 3.8 cm AV Cusp: 2.4 cm MV EXCURSION: 19.089 mm MV EL SLOP: 34 mm/s EPSS: 0.5 cm Doppler MV E Maycol: 0.51 m/s MV DecT: 268 ms MV A Maycol: 0.65 m/s MV E/A Ratio: 0.78 E/E': 7.68 E': 0.07 m/s FINDINGS ECG Rhythm: Sinus rhythm. Study Quality: This was a technically good study. Left Ventricle: The left ventricular size is normal. There is moderate concentric left ventricular hypertrophy. Overall left ventricular systolic function is normal with, an EF between 60 - 65 %. Right Ventricle: The right ventricle is normal in size. Left Atrium: Normal LA size by volume 22+/-6 ml/m2. Right Atrium: The right atrium is normal in size. ASD/VSD: Aneurysmal Interatrial septum. Aortic Valve: The aortic valve is trileaflet, and appears structurally normal. No aortic stenosis or regurgitation. Mitral Valve: The mitral valve is normal. Tricuspid Valve: The tricuspid valve appears structurally normal. PV: Trace/mild (physiologic) pulmonic regurgitation. The aortic root is dilated measuring 3.8 cm. IVC/Hepatic Veins: Normal inferior vena cava with normal inspiratory collapse consistent with estimated right atrial pressure of 5 mmHg. Pericardium: There is no pericardial effusion. CONCLUSIONS 1. The left ventricular size is normal. 2. There is moderate concentric left ventricular hypertrophy. 3. Overall left ventricular systolic function is normal with, an EF between 60 - 65 %. 4. Normal LA size by volume 22+/-6 ml/m2. 5. Trace/mild (physiologic) pulmonic regurgitation. 6. The aortic root is dilated measuring 3.8 cm. 7. There is no pericardial effusion. MTDD
== END | disposition home or self-care (01) ==
LOC: RADECHMAIN 10:52
PROVIDERS: ATTEND Internal Medicine Clinical Cardiac Electrophysiology
DX: I51.7 Cardiomegaly (principal); I37.1 Nonrheumatic pulmonary valve insufficiency; I48.91 Unspecified atrial fibrillation
CPT/HCPCS: 93306

== ENCOUNTER → 2021-02-19 | Outpatient (CLI) | payer BC ==
[2021-02-19 11:14] LABS: HCT 39.1 % (37.2-46.3); HGB 12.9 g/dL (12.0-15.0); MCH 27.9 pg (27.0-32.0); MCV 84.4 fL (80.0-97.0); Platelet Count 251 X 10*3/uL (140-440); RBC 4.63 X 10*6/uL (4.10-5.20); WBC 6.78 X 10*3/uL (4.50-10.00)
[2021-02-19 11:54] LABS: ALT 36 U/L (8-44); AST 22 U/L (13-35); African American GFR (CKD) 109.9 (60.0-200.0); Albumin 4.5 g/dL (3.8-4.9); Albumin/Globulin Ratio 1.87 (1.60-3.17); Alkaline Phosphatase 62 U/L (41-126); BUN/Creat Ratio 18.63 Ratio (12.00-20.00); Blood Urea Nitrogen 14.9 mg/dL (9.0-27.0); Calcium 9.8 mg/dL (8.7-10.3); Carbon Dioxide 24.6 mmol/L (20.0-27.5); Chloride 104 mmol/L (96-109); Chol/HDL Ratio 3.04 Ratio; Globulin 2.4 g/dL (1.6-3.3); Glucose 102 mg/dL (70-110); LDL Cholesterol,Calculated 40.2 mg/dL (0.0-131.0); Non-African American GFR(CKD) 94.9 (60.0-200.0); Potassium 4.3 mmol/L (3.5-5.5); Sodium 141 mmol/L (135-145); Total Protein 6.9 g/dL (6.2-8.2)
== END | disposition home or self-care (01) ==
LOC: LABWHC1 07:53
PROVIDERS: ATTEND Internal Medicine
DX: Z00.00 Encounter for general adult medical examination without abnormal findings (principal); E03.9 Hypothyroidism, unspecified
CPT/HCPCS: 36415; 80053; 80061; 84443; 85027

== ENCOUNTER → 2021-07-30 | Day surgery (SDC) | payer BC ==
[2021-07-26 15:39] VITALS: BMI 36.5
[~2021-07-30] MED LIST changes: +Acetaminophen-Codeine 300-30mg TAB PO PRN; -DEXAMETHASONE SOD PHOSPHATE 10 MG/ML 1 ML VIAL IV ONE; +DEXAMETHASONE SOD PHOSPHATE 4 MG/ML 1 ML VIAL IV ONE; +HYDROmorphone 0.5 MG/0.5 ML SYRINGE IVP PRN; +IBUPROFEN 600 MG TAB PO PRN; +KETOROLAC 15 MG/ML 1 ML VIAL IVP PRN; +KETOROLAC 15 MG/ML 1 ML VIAL ONE; +LACTATED RINGERS 1,000 ML IV ONE; +LIDOCAINE 2% INJ 20 MG/ML (2 ML VIAL) ONE; +METOCLOPRAMIDE 5 MG/ML 2 ML VIAL IVP PRN; -MIDAZOLAM 2 MG/2 ML VIAL IV PRN; +MIDAZOLAM 2 MG/2 ML VIAL ONE; +ONDANSETRON 4 MG/2 ML VIAL IVP PRN; +PROPOFOL 10 MG/ML 20 ML VIAL IV ONE; +SCOPOLAMINE 1 MG/72 HR PATCH TRANSDERM ONE; +SIMETHICONE 80 MG CHEWABLE PO PRN; +diphenhydrAMINE 50 MG/ML 1 ML VIAL IVP PRN; +fentaNYL (PF) 50 MCG/ML 2 ML AMP ONE
--- NOTE | 2021-07-30 12:34 | P.OP ---
Date of Procedure: 07/30/21 Preoperative Diagnosis: 1. Menorrhagia Postoperative Diagnosis: Same Procedure(s) Performed: #1. Diagnostic hysteroscopy #2. NovaSure endometrial ablation Anesthesia: other (Gen. by face mask) Surgeon: Newton Meyers Estimated Blood Loss (ml): 5 IV fluids (ml): 400 Urine output (ml): 40 Pathology: none sent Condition: stable Disposition: PACU Operative Findings: Preoperative pelvic examination demonstrated a 5-6 week midplane mobile normal shaped uterus with normal adnexa bilaterally. Intraoperatively, the uterus sounded to 10 cm with a roughly 4 cm cervix. Using the hysteroscope, the bilateral tubal ostia were seen. There was a small amount of shaggy tissue in the endometrium but no apparent pathology. The settings for the NovaSure tool where a length of 6.0 cm, a width of 4.8 cm for a total power 158 W. The cavity check was passed without difficulty. After total run minute of 1 minute and 39 seconds, the base unit read "procedure complete." The postprocedural hysteroscopic result appeared to be excellent. The patient is a borderline candidate for vaginal hysterectomy but has had 2 previous sections and would likely benefit from a da Genaro approach should hysterectomy become necessary. Description of Procedure: The patient was prepped and draped in usual fashion after general anesthesia was administered by the anesthesiologist. A weighted speculum was placed and the bladder drained of approximate 40 mL of clear cedrick urine. The anterior lip of the cervix was grasped with a single-tooth tenaculum and uterus sounded to 10 cm with a cervical length of approximate 4 cm meters. Serial dilation was carried out to admit the diagnostic hysteroscope which was placed to the fundus and the uterus distended with saline. The findings are as noted above with the b ilateral tubal ostia seen. There is no apparent pathology and a minimal amount of shaggy endometrium. The previously intended dilation and curettage was incidentally omitted secondary to the lack of significant endometrium and a previous surgery for polypectomy which was benign in nature. The scope was removed and the NovaSure tool placed into the intrauterine cavity, opened, and seated well. The settings as noted above with a length of 6.0 cm, a width of 4.8 cm for a total power of 158 W. The cavity check was attempted and passed without difficulty. The tool was enabled and the run was started. After a run time of 1 minute and 39 seconds, the tool disengaged and the base unit read "procedure complete." The 2 was closed, removed, and discarded. The diagnostic hysteroscope was replaced within the endometrial cavity and the findings were as noted above. They appeared to be excellent. All instrumentation was removed. One site of bleeding from the tenaculum site was made hemostatic with pressure. Estimated blood loss for the case was less than 5 mL. There were no complications. All sponge, instrument, and needle counts were correct. The patient tolerated the procedure well and proceeded to the recovery room in stable condition.
[2021-07-30 12:43] VITALS: TEMP 97.6
[2021-07-30 14:08] VITALS: RESP 16
[2021-07-30 14:44] VITALS: BP 116/79; PULSE 73
== END | disposition home or self-care (01) ==
LOC: OR 09:49
PROVIDERS: ATTEND Obstetrics & Gynecology
DX: N92.0 Excessive and frequent menstruation with regular cycle (principal); J45.909 Unspecified asthma, uncomplicated; E03.9 Hypothyroidism, unspecified; I48.91 Unspecified atrial fibrillation; Z98.891 History of uterine scar from previous surgery; Z87.891 Personal history of nicotine dependence; Z79.890 Hormone replacement therapy; Z79.899 Other long term (current) drug therapy; Z88.1 Allergy status to other antibiotic agents; Z98.890 Other specified postprocedural states; Z80.3 Family history of malignant neoplasm of breast; Z83.3 Family history of diabetes mellitus; Z82.5 Family history of asthma and other chronic lower respiratory diseases; Z82.49 Family history of ischemic heart disease and other diseases of the circulatory system
CPT/HCPCS: 81025; 58563; J2250; J1100; J2405; J3010; J1885; J2704; J2001

== ENCOUNTER 2021-08-21 13:00 | Inpatient (IN) | payer BC ==
[2021-08-21] MEDS ORDERED: DILTIAZEM DRIP BOLUS FROM BAG 1 MG SOLN IV ONE (13:25)
[2021-08-21] MEDS ORDERED: DILTIAZEM 125 MG in SODIUM CHLORIDE 0.9% 100 ML IV SCH (13:30)
--- NOTE | 2021-08-21 13:39 | XR ---
EXAMINATION TYPE: XR chest 2V DATE OF EXAM: 08/21/2021 COMPARISON: Chest x-ray 12/23/2018 HISTORY: Chest pain TECHNIQUE: Frontal and lateral views of the chest are obtained. FINDINGS: There is no focal air space opacity, pleural effusion, or pneumothorax seen. The cardiac silhouette size is within normal limits. The osseous structures are intact. There are overlying sophie ds. IMPRESSION: No acute cardiopulmonary process.
--- NOTE | 2021-08-21 13:55 | ED ---
Chest Pain HPI - General Chief Complaint: Chest Pain Stated Complaint: AFIB Time Seen by Provider: 08/21/21 13:07 Source: patient, RN notes reviewed Mode of arrival: ambulatory Limitations: no limitations - History of Present Illness Initial Comments: This a 36-year-old female presents emergency Department chief complaint of palpitations. Patient states she was waiting to get her lunch when she started feeling lightheaded, sightly dizzy like her heart was racing. She does have a history of atrial fibrillation with cardiac ablation by Dr. Churchill 2 years ago. He states there is mild discomfort. Has nausea vomiting fevers or chills. Patient states she is non-Synthroid no other medications. Patient states she used to be on Xarelto. - Related Data Home Medications Medication Instructions Recorded Confirmed Multivitamins, Thera [Multivitamin 1 tab PO DAILY 08/03/19 07/26/21 (formulary)] Albuterol Inhaler [Ventolin Hfa 1 - 2 puff INHALATION DIRECTED 12/16/19 07/26/21 Inhaler] PRN Loratadine [Claritin] 10 mg PO DAILY 12/16/19 07/26/21 L.acidoph,Paracasei, B.lactis 1 each PO DAILY 07/26/21 07/26/21 [Probiotic] Levothyroxine Sodium [Synthroid] 50 mcg PO DAILY 07/26/21 07/26/21 Allergies Allergy/AdvReac Type Severity Reaction Status Date / Time ciprofloxacin [From Cipro] Allergy Anaphylaxis Verified 08/21/21 13:05 ciprofloxacin HCl Allergy Anaphylaxis Verified 08/21/21 13:05 [From Cipro] Review of Systems ROS Statement: Those systems with pertinent positive or pertinent negative responses have been documented in the HPI. ROS Other: All systems not noted in ROS Statement are negative. Past Medical History Past Medical History: Atrial Fibrillation, Asthma, Thyroid Disorder History of Any Multi-Drug Resistant Organisms: None Reported Past Surgical History: Breast Surgery, Section, Tubal Ligation Additional Past Surgical History / Comment(s): reduction Past Anesthesia/Blood Transfusion Reactions: No Reported Reaction Past Psychological History: No Psychological Hx Reported Smoking Status: Never smoker Past Alcohol Use History: Occasional Past Drug Use History: None Reported - Past Family History Father Family Medical History: AFIB, CVA/TIA, Hypertension Mother Family Medical History: AFIB, Cancer, COPD, Fibromyalgia General Exam Limitations: no limitations General appearance: alert, in no apparent distress Head exam: Present: atraumatic, normocephalic, normal inspection Neck exam: Present: normal inspection, full ROM. Absent: tenderness, meningismus, lymphadenopathy Respiratory exam: Present: normal lung sounds bilaterally. Absent: respiratory distress, wheezes, rales, rhonchi, stridor Cardiovascular Exam: Present: tachycardia, irregular rhythm, normal heart sounds. Absent: regular rate, normal rhythm, systolic murmur, diastolic murmur, rubs, gallop, clicks GI/Abdominal exam: Present: soft, normal bowel sounds. Absent: distended, tenderness, guarding, rebound, rigid Neurological exam: Present: alert, oriented X3 Skin exam: Present: warm, dry, intact, normal color. Absent: rash Course Vital Signs 08/21/21 08/21/21 13:02 14:00 Temperature 98.2 F Pulse Rate 153 H 158 H Respiratory 20 Rate Blood Pressure 133/90 123/110 O2 Sat by Pulse 97 Oximetry - Reevaluation(s) Reevaluation #1: 08/21/21 13:54 I did contact [facility] who came and evaluated the patient. Chest Pain MDM - MDM 36-year-old female presented from it for palpitations. Patient found to be in A. fib RVR. Patient has a history of A. fib with prior ablation. Patient was started on Cardizem including bolus, confusion, case discussed with butcher helper can evaluate the patient. Patient be admitted to medicine for further treatment of her A. fib RVR. Critical Care Time Critical Care Time: Yes Total Critical Care Time: 35 Disposition Clinical Impression: Atrial fibrillation with RVR Disposition: ADMITTED IP TO THIS HOSP Condition: Fair Referrals: Kings Gotti MD [Primary Care Provider] - 1-2 days Time of Disposition: 14:21
[2021-08-21 14:05] LABS: Basophils % (A) 0 %; Eosinophils # (A) 0.1 k/uL (0-0.7); Eosinophils % (A) 1 %; HGB 14.2 gm/dL (11.4-16.0); Lymphocytes # (A) 2.6 k/uL (1.0-4.8); Lymphocytes % (A) 20 %; MCH 29.1 pg (25.0-35.0); MCHC 34.7 g/dL (31.0-37.0); MCV 83.7 fL (80.0-100.0); Mean Platelet Volume 9.1; Monocytes # (A) 0.5 k/uL (0-1.0); Monocytes % (A) 4 %; Neutrophils # (A) 9.3 k/uL (1.3-7.7); Neutrophils % (A) 73 %; Platelet Count 305 k/uL (150-450); RDW 12.8 % (11.5-15.5); WBC 12.8 k/uL (3.8-10.6)
[2021-08-21 14:10] LABS: INR 0.9 (<1.2); Partial Thromboplastin Time 24.7 sec (22.0-30.0); Prothrombin Time 10.1 sec (9.0-12.0)
[2021-08-21] MEDS ORDERED: HEPARIN SODIUM 1,000 UN/ML (10ML VL) IV ONE (14:11)
[2021-08-21] MEDS ORDERED: HEPARIN SODIUM 1,000 UN/ML (10ML VL) IV PRN (14:11)
[2021-08-21] MEDS ORDERED: FLECAINIDE 50 MG TAB PO STA (14:17)
[2021-08-21 14:22] LABS: ALT 25 U/L (4-34); AST 25 U/L (14-36); African American GFR (CKD) >90 (>60 ml/min/1.73 sqM); Albumin 4.6 g/dL (3.5-5.0); Alkaline Phosphatase 58 U/L (38-126); Anion Gap 11 mmol/L; Blood Urea Nitrogen 10 mg/dL (7-17); Calcium 9.5 mg/dL (8.4-10.2); Carbon Dioxide 23 mmol/L (22-30); Chloride 106 mmol/L (98-107); Glucose 104 mg/dL (74-99); Magnesium 1.8 mg/dL (1.6-2.3); Non-African American GFR(CKD) >90 (>60 ml/min/1.73 sqM); Potassium 3.7 mmol/L (3.5-5.1); Sodium 140 mmol/L (137-145); Total Bilirubin 0.3 mg/dL (0.2-1.3); Total Protein 7.5 g/dL (6.3-8.2)
[2021-08-21] MEDS ORDERED: NITROGLYCERIN SL TABS 0.4 MG TAB SUBLINGUAL PRN (14:23)
--- NOTE | 2021-08-21 14:28 | P.CRDCN ---
History of Present Illness Consult date: 08/21/21 History of present illness: HISTORY OF PRESENT ILLNESS: This is a 36-year-old female with a past medical history significant for atrial fibrillation with previous ablation in 2019. Patient follows in the office with Dr. Major. We have been asked to see the patient in consultation for A. fib with RVR. Patient examined at the bedside. Patient states she was feeling in her usual state of health when around lunchtime she began to have palpitations and was feeling dizzy. She had a coworker listen to her with her stethoscope and she sounded fast and irregular. The patient came to the ER for further evaluation. An EKG was completed revealing atrial fibrillation with RVR with a heart rate of 157. A cardizem bolus and drip have been ordered but have not yet been started at the time of my examination. It is noted that the patient was taking Xarelto previously but after her ablation this was discontinued. She denies have any previous cardioversions. She also reports that she was taking metoprolol 12.5 mg twice a day previously. She states that she became borderline hypotensive and decreased her dosage to 12.5 mg daily. However because she has not had any further episodes of atrial fibrillation to her knowledge since her ablation, her metoprolol was discontinued 68 months ago per patient. * EKG reveals A. fib with RVR * Chest xray no acute cardiopulmonary process * Laboratory data: W BC 12.8. Hemoglobin 14.2. Platelet count 305. Additional labs are currently pending at the time of this dictation. * Current home cardiac medications include none * Most recent echocardiogram obtained in February 2021 revealed ejection frac tion 60-65% * Cardiac catheterization history: patient denies REVIEW OF SYSTEMS: At the time of my exam: CONSTITUTIONAL: Denies fever or chills. HEENT: Denies blurred vision, vision changes, or eye pain. Denies hemoptysis CARDIOVASCULAR: Denies chest pain. Denies orthopnea. Denies PND. Denies palpitations RESPIRATORY: Denies shortness of breath. GASTROINTESTINAL: Denies abdominal pain. Denies nausea or vomiting. HEMATOLOGIC: Denies bleeding disorders. GENITOURINARY: Denies any blood in urine. SKIN: Denies pruitis. Denies rash. PHYSICAL EXAM: VITAL SIGNS: Reviewed. GENERAL: Well-developed in no acute distress. HEENT: Head is normocephalic. Pupils are equal, round. Sclerae anicteric. Mucous membranes of the mouth are moist. Neck supple. No JVD or thyromegaly LUNGS: Respirations even and unlabored. Lungs essentially clear to auscultation bilaterally. HEART: Tachycardic. Irregular rate and rhythm. S1 and S2 heard. ABDOMEN: Soft. Nondistended. Nontender. EXTREMITIES: Normal range of motion. No clubbing or cyanosis. Peripheral pulses intact. No lower extremity edema NEUROLOGIC: Awake and alert. Oriented x 3. ASSESSMENT: Palpitations and dizziness Atrial fibrillation with RVR History of atrial fibrillation with ablation, 2019 Hypothyroidism PLAN: Continue telemetry monitoring Begin IV Cardizem drip and bolus Give Flecainide 150mg PO x 1 dose now Begin IV Heparin infusion Check TSH Check 2D echo to assess cardiac structure and function Further recommendations pending patient course Nurse practitioner note has been reviewed by physician. Signing provider agrees with the documented findings, assessment, and plan of care. Past Medical History Past Medical History: Atrial Fibrillation, Asthma, Thyroid Disorder History of Any Multi-Drug Resistant Organisms: None Reported Past Surgical History: Breast Surgery, Section, Tubal Ligation Additional Past Surgical History / Comment(s): reduction Past Anesthesia/Blood Transfusion Reactions: No Reported Reaction Past Psychological History: No Psychological Hx Reported Smoking Status: Never smoker Past Alcohol Use History: Occasional Past Drug Use History: None Reported - Past Family History Father Family Medical History: AFIB, CVA/TIA, Hypertension Mother Family Medical History: AFIB, Cancer, COPD, Fibromyalgia Medications and Allergies Home Medications Medication Instructions Recorded Confirmed Type Multivitamins, Thera [Multivitamin 1 tab PO DAILY 08/03/19 07/26/21 History (formulary)] Albuterol Inhaler [Ventolin Hfa 1 - 2 puff INHALATION DIRECTED 12/16/19 07/26/21 History Inhaler] PRN Loratadine [Claritin] 10 mg PO DAILY 12/16/19 07/26/21 History L.acidoph,Paracasei, B.lactis 1 each PO DAILY 07/26/21 07/26/21 History [Probiotic] Levothyroxine Sodium [Synthroid] 50 mcg PO DAILY 07/26/21 07/26/21 History Allergies Allergy/AdvReac Type Severity Reaction Status Date / Time ciprofloxacin [From Cipro] Allergy Anaphylaxis Verified 08/21/21 13:05 ciprofloxacin HCl Allergy Anaphylaxis Verified 08/21/21 13:05 [From Cipro] Physical Exam Vitals: Vital Signs Temp Pulse Resp BP Pulse Ox 08/21/21 14:00 158 H 123/110 08/21/21 13:02 98.2 F 153 H 20 133/90 97 Intake and Output 08/20/21 08/21/21 08/21/21 22:59 06:59 14:59 Other: Weight 108.862 kg Results 08/21/21 13:46 08/21/21 13:46 CBC 08/21/21 Range/Units 13:46 WBC 12.8 H (3.8-10.6) k/uL RBC 4.90 (3.80-5.40) m/uL Hgb 14.2 (11.4-16.0) gm/dL Hct 41.0 (34.0-46.0) % Plt Count 305 (150-450) k/uL Current Medications Generic Name Dose Route Start Last Admin Trade Name Freq PRN Reason Stop Dose Admin Diltiazem HCl 125 mg/ Sodium 125 mls @ 5 mls/hr 08/21/21 13:30 08/21/21 13:57 Chloride IV 5 mg/hr .Q24H TED 5 mls/hr Administration 5 MG/HR Intake and Output 08/20/21 08/21/21 08/21/21 22:59 06:59 14:59 Other: Weight 108.862 kg Patient Weight 08/22/21 06:59 Weight 108.862 kg 08/21/21 13:46
[2021-08-21] MEDS: HEPARIN SOD,PORK IN 0.45% NACL 25,000 UNIT in 0.45% NACL 1 250ML.BAG IV SCH (14:43)
--- NOTE | 2021-08-21 15:26 | P.HPIM ---
History of Present Illness H&P Date: 08/21/21 Chief Complaint: Palpitations 36-year-old woman with a history of paroxysmal atrial fibrillation, hypothyroidism presented for evaluation palpitations. She says that shortly after noon, while she was waiting in line for lunch, she started to develop palpitations. She is familiar with these palpitations because she has a history of paroxysmal atrial fibrillation with rapid ventricular response and only has these sensations when she has rapid ventricular response major fibrillation. Previously she had been using a pill in pocket strategy in which she used flecainide to abort these episodes of atrial fibrillation, however, she has not had an episode in several years, therefore has not been taking any medication. She is also not on any beta case or anticoagulation for atrial fibrillation due to having such low burden of atrial fibrillation overall. Her initial atrial fibrillation episode was when she was , but reports there is no way she is now considering she had a tubal ligation recently. Otherwise, she has no other complaints including denial of fevers, chills, nausea, vomiting, chest pain, syncope, presyncope, cough, dyspnea, abdominal pain, constipation, diarrhea, dysuria, dyschezia, numbness/weakness of extremities. In the emergency room, patient was afebrile, 130s over 98, heart rate between 130 and 160, saturating well on room air. CBC shows mild leukocytosis at 12.8, otherwise unremarkable. Chemistries are unremarkable. LFTs are unremarkable. Troponin is less than 0.012. Coags are unremarkable. Chest x-ray shows no acute cardio coronary process. EKG shows atrial fibrillation with rapid ventricular response with a rate Sugar 157, no ischemic changes. Patient was seen by cardiology in the emergency room, started on diltiazem drip as well as given 150 mg of flecainide IV and attempt to cardiovert chemically. All Systems reviewed and pertinent positives and negatives noted in HPI, all other symptoms are negative Gen: in no apparent distress, resting comfortably in bed Eyes: PERRL, no scleral injection or icterus HENT: normocephalic, atraumatic, good hearing acuity, moist mucous membranes Neck: no tracheal deviation, full range of motion Resp: good air exchange, breathing comfortably with no accessory muscle use, no tactile fremitus, clear to auscultation bilaterally CVS: good distal perfusion x 4, no pitting edema, regular rate and rhythm GI: soft, tenderness to palpation in the epigastrium, periumbilical area, ND, no hepatosplenomegaly : no suprapubic tenderness, left-sided CVAT, zavala catheter not present MSK: no clubbing, no cyanosis, no noted contractures of extremities Skin: no noted rashes, petechiae; temperature of skin is appropriate Neuro: moving all extremities without signs of weakness, CN II-XII intact Psych: cooperative, euthymic mood, insight and judgment intact Labs and imaging reviewed as above Assessment/plan: Paroxysmal atrial fibrillation with RVR -Admit to observation, telemetry -Cardiology consult -Nothing by mouth at midnight for possible cardioversion tomorrow -Continue diltiazem drip, rate increased to 10 mg/h during my evaluation today -Continue heparin drip -Initiate metoprolol Hypothyroidism -Obtain TSH/free T4 -Resume Synthroid Patient is full code DVT prophylaxis covered with heparin drip Past Medical History Past Medical History: Atrial Fibrillation, Asthma, Thyroid Disorder History of Any Multi-Drug Resistant Organisms: None Reported Past Surgical History: Breast Surgery, Section, Tubal Ligation Additional Past Surgical History / Comment(s): reduction Past Anesthesia/Blood Transfusion Reactions: No Reported Reaction Past Psychological History: No Psychological Hx Reported Smoking Status: Never smoker Past Alcohol Use History: Occasional Past Drug Use History: None Reported - Past Family History Father Family Medical History: AFIB, CVA/TIA, Hypertension Mother Family Medical History: AFIB, Cancer, COPD, Fibromyalgia Medications and Allergies Home Medications Medication Instructions Recorded Confirmed Type Multivitamins, Thera [Multivitamin 1 tab PO DAILY 08/03/19 08/21/21 History (formulary)] L.acidoph,Paracasei, B.lactis 1 cap PO DAILY 07/26/21 08/21/21 History [Probiotic] Levothyroxine Sodium [Synthroid] 50 mcg PO DAILY 07/26/21 08/21/21 History Allergies Allergy/AdvReac Type Severity Reaction Status Date / Time ciprofloxacin [From Cipro] Allergy Anaphylaxis Verified 08/21/21 14:42 ciprofloxacin HCl Allergy Anaphylaxis Verified 08/21/21 14:42 [From Cipro] Physical Exam Osteopathic Statement: *. No significant issues noted on an osteopathic structural exam other than those noted in the History and Physical/Consult. Vitals: Vital Signs Temp Pulse Resp BP Pulse Ox 08/21/21 14:50 135 H 08/21/21 14:00 158 H 123/110 08/21/21 13:02 98.2 F 153 H 20 133/90 97 Intake and Output 08/21/21 08/21/21 08/21/21 06:59 14:59 22:59 Other: Weight 108.862 kg Results CBC & Chem 7: 08/21/21 13:46 08/21/21 13:46 Labs: Abnormal Lab Results - Last 24 Hours (Table) 08/21/21 08/21/21 Range/Units 13:46 13:46 WBC 12.8 H (3.8-10.6) k/uL Neutrophils # 9.3 H (1.3-7.7) k/uL Glucose 104 H (74-99) mg/dL
[2021-08-21] MEDS: METOPROLOL TARTRATE 50 MG TAB PO SCH (20:37)
[2021-08-21] MEDS ORDERED: METOPROLOL TARTRATE 25 MG TAB PO SCH (21:00)
[2021-08-22 03:59] LABS: Partial Thromboplastin Time 48.8 sec (22.0-30.0); Prothrombin Time 10.4 sec (9.0-12.0)
[2021-08-22 04:03] LABS: African American GFR (CKD) >90 (>60 ml/min/1.73 sqM); Anion Gap 6 mmol/L; Blood Urea Nitrogen 9 mg/dL (7-17); Calcium 9.2 mg/dL (8.4-10.2); Carbon Dioxide 23 mmol/L (22-30); Chloride 108 mmol/L (98-107); Glucose 92 mg/dL (74-99); Magnesium 1.9 mg/dL (1.6-2.3); Non-African American GFR(CKD) >90 (>60 ml/min/1.73 sqM); Potassium 4.1 mmol/L (3.5-5.1); Sodium 137 mmol/L (137-145)
[2021-08-22 04:10] LABS: Basophils # (A) 0.1 k/uL (0-0.2); Basophils % (A) 1 %; Eosinophils # (A) 0.1 k/uL (0-0.7); Eosinophils % (A) 2 %; HCT 42.4 % (34.0-46.0); Lymphocytes # (A) 3.1 k/uL (1.0-4.8); Lymphocytes % (A) 37 %; MCV 84.8 fL (80.0-100.0); Mean Platelet Volume 9.3; Monocytes # (A) 0.5 k/uL (0-1.0); Monocytes % (A) 6 %; Neutrophils # (A) 4.3 k/uL (1.3-7.7); Neutrophils % (A) 52 %; Platelet Count 257 k/uL (150-450); RBC 5.01 m/uL (3.80-5.40); RDW 11.8 % (11.5-15.5); WBC 8.3 k/uL (3.8-10.6)
[2021-08-22] MEDS ORDERED: ASPIRIN 325 MG TAB PO SCH (09:00)
[2021-08-22] MEDS: METOPROLOL TARTRATE 50 MG TAB PO SCH (09:01)
[2021-08-22] MEDS: HEPARIN SOD,PORK IN 0.45% NACL 25,000 UNIT in 0.45% NACL 1 250ML.BAG IV SCH (09:10)
--- NOTE | 2021-08-22 11:33 | CA ---
Transthoracic Echo Report Name: Vonda Tovar Age: 36 Gender: F : 1985 Exam Date: 08/22/2021 08:24 Exam Location: [facility] Ht (in): 68 Wt (lb): 240 Ordering Physician: Stephanie Dueñas Attending/Referring Phys: [id number], Spenser Acid Filler Marlyn Chance, CINTHIA Procedure CPT: Indications: LV function Cardiac Hx: Afib Technical Quality: Good Contrast 1: Total Dose (mL): Contrast 2: Total Dose (mL): MEASUREMENTS (Male / Female) Normal Values 2D ECHO LV Diastolic Diameter PLAX 4.0 cm 4.2 - 5.9 / 3.9 - 5.3 cm LV Systolic Diameter PLAX 3.2 cm IVS Diastolic Thickness 1.2 cm 0.6 - 1.0 / 0.6 - 0.9 cm LVPW Diastolic Thickness 1.7 cm 0.6 - 1.0 / 0.6 - 0.9 cm LV Relative Wall Thickness 0.7 RV Internal Dim ED PLAX 3.1 cm LA Systolic Diameter LX 3.7 cm 3.0 - 4.0 / 2.7 - 3.8 cm LA Volume 75.2 cm??? 18 - 58 / 22 - 52 cm??? M-MODE Aortic Root Diameter MM 3.2 cm LA Systolic Diameter MM 3.7 cm LA Ao Ratio MM 1.2 MV E Point Septal Separation 0.4 cm AV Cusp Separation MM 2.4 cm FINDINGS Left Ventricle Normal left ventricular size, mild wall thickness, systolic function with no obvious regional wall motion abnormalities. The ejection fraction is visually estimated at 55-60 %. Right Ventricle The right ventricle is normal in size and function. Right Atrium The right atrium is normal in size. Left Atrium Severely increased left atrial volume. Mildly increased left atrial area. Mitral Valve Structurally normal mitral valve without significant stenosis or prolapse. There is mild mitral regurgitation. Aortic Valve Structurally normal aortic valve without significant sclerosis or stenosis. There is no aortic regurgitation. Tricuspid Valve Structurally normal tricuspid valve without significant stenosis. Pulmonary artery systolic pressure is normal. Pulmonic Valve Structurally normal pulmonic valve without significant stenosis. There is no pulmonic regurgitation. Pericardium Normal pericardium without effusion. Aorta Normal aortic root dimension. CONCLUSIONS Normal LV size and systolic function. No significant abnormality on the Doppler exam. No pericardial effusion Previewed by: Dr. Watson Amanda MD (Electronically Signed) Final Date: 22 August 2021 11:32
--- NOTE | 2021-08-22 13:03 | P.PN ---
Subjective Progress Note Date: 08/22/21 HISTORY OF PRESENT ILLNESS: This is a 36-year-old female with a past medical history significant for atrial fibrillation with previous ablation in 2019. Patient follows in the office with Dr. Major. We have been asked to see the patient in consultation for A. fib with RVR. Patient examined at the bedside. Patient states she was feeling in her usual state of health when around lunchtime she began to have palpitations and was feeling dizzy. She had a coworker listen to her with her stethoscope and she sounded fast and irregular. The patient came to the ER for further eval uation. An EKG was completed revealing atrial fibrillation with RVR with a heart rate of 157. A cardizem bolus and drip have been ordered but have not yet been started at the time of my examination. It is noted that the patient was taking Xarelto previously but after her ablation this was discontinued. She denies have any previous cardioversions. She also reports that she was taking metoprolol 12.5 mg twice a day previously. She states that she became borderline hypotensive and decreased her dosage to 12.5 mg daily. However because she has not had any further episodes of atrial fibrillation to her knowledge since her ablation, her metoprolol was discontinued 68 months ago per patient. * EKG reveals A. fib with RVR * Chest xray no acute cardiopulmonary process * Laboratory data: W BC 12.8. Hemoglobin 14.2. Platelet count 305. Additional labs are currently pending at the time of this dictation. * Current home cardiac medications include none * Most recent echocardiogram obtained in February 2021 revealed ejection fraction 60-65% * Cardiac catheterization history: patient denies 08/22/2021 Patient examined this morning at the bedside. Patient remains in atrial fibrillation with heart rates in the 90s. Blood pressure stable at . She remains on IV Cardizem 5 mg an hour. She is also been started on metoprolol. She denies chest pain or pressure. Denies shortness of breath. Denies any palpitations. Echocardiogram completed revealing ejection fraction 55-60% with mild mitral regurgitation. PHYSICAL EXAM: VITAL SIGNS: Reviewed. GENERAL: Well-developed in no acute distress. HEENT: Head is normocephalic. Pupils are equal, round. Sclerae anicteric. Mucous membranes of the mouth are moist. Neck supple. No JVD or thyromegaly LUNGS: Respirations even and unlabored. Lungs essentially clear to auscultation bilaterally. HEART: Irregular rate and rhythm. S1 and S2 heard. ABDOMEN: Soft. Nondistended. Nontender. EXTREMITIES: Normal range of motion. No clubbing or cyanosis. Peripheral pulses intact. No lower extremity edema NEUROLOGIC: Awake and alert. Oriented x 3. ASSESSMENT: Palpitations and dizziness Atrial fibrillation with RVR History of atrial fibrillation with ablation, 2019 Hypothyroidism PLAN: Continue telemetry monitoring Continue current cardiac medications Patient to undergo MICHAEL/CV today with Dr. Chinyere Whitlock recommends 3 weeks of Xarelto post discharge Will decrease metoprolol to 12.5mg BID after CV Further recommendations pending patient course Nurse practitioner note has been reviewed by physician. Signing provider agrees with the documented findings, assessment, and plan of care. Objective - Vital Signs Vital signs: Vital Signs Temp 98.2 F 08/22/21 08:00 Pulse 80 08/22/21 08:00 Resp 18 08/22/21 08:00 BP 103/74 08/22/21 08:00 Pulse Ox 98 08/22/21 08:00 FiO2 Intake & Output 08/21/21 08/22/21 08/22/21 18:59 06:59 18:59 Intake Total 9 64.833 158.75 Balance 9 64.833 158.75 Weight 108.862 kg Intake: Intake, IV Titration 9 64.833 158.75 Amount Diltiazem 125 mg In 9 Sodium Chloride 0.9% 100 ml @ 5 MG/HR 5 mls/hr IV .Q24H TED Rx#:[id number] Heparin Sod,Pork in 0.45% 64.833 158.75 NaCl 25,000 unit In 0.45 % NaCl 1 250ml.bag @ 9. 186 UNITS/KG/HR 10 mls/hr IV .Q24H TED Rx#: [id number] Other: # Voids 2 - Labs CBC & Chem 7: 08/22/21 02:41 08/22/21 02:41 Labs: Abnormal Lab Results - Last 24 Hours (Table) 08/21/21 08/21/21 08/22/21 Range/Units 13:46 13:46 02:41 WBC 12.8 H (3.8-10.6) k/uL Neutrophils # 9.3 H (1.3-7.7) k/uL APTT (22.0-30.0) sec Chloride 108 H (98-107) mmol/L Glucose 104 H (74-99) mg/dL 08/22/21 Range/Units 02:41 WBC (3.8-10.6) k/uL Neutrophils # (1.3-7.7) k/uL APTT 48.8 H (22.0-30.0) sec Chloride (98-107) mmol/L Glucose (74-99) mg/dL
[2021-08-22] MEDS ORDERED: PROPOFOL 10 MG/ML 20 ML VIAL IV ONE (13:35)
[2021-08-22] MEDS ORDERED: LACTATED RINGERS 1,000 ML IV ONE (13:55)
[2021-08-22] MEDS ORDERED: SODIUM CHLORIDE 0.9% 1,000 ML IV SCH (14:00)
--- NOTE | 2021-08-22 15:05 | ECHOT ---
TRANSESOPHAGEAL ECHOCARDIOGRAM INDICATION: Persistent atrial fibrillation, rule out intracardiac thrombus. PROCEDURE NOTE: After obtaining informed consent, transesophageal echocardiogram was performed in left lateral position using an Omni plane probe. Local and IV sedation were obtained by the pie filler. 2D color Doppler and spectral analysis have been performed. FINDINGS: 1. There is no intracardiac thrombus within the left atrial appendage, left atrium, right atrium, right ventricle or left ventricle. 2. Left atrium appears mildly enlarged. 3. Left ventricle has normal size and systolic function. 4. Right atrium and right ventricle appear normal. 5. Aortic valve is a 3-leaflet valve. There is no evidence of aortic stenosis or regurgitation. Aortic root measures within normal limits. 6. Mitral valve is anatomically normal. There is mild mitral regurgitation noted. 7. Tricuspid valve shows mild tricuspid regurgitation. 8. Interatrial septum: There is no evidence of [id number] shunt by agitated saline contrast study or [id number] shunt by color-flow Doppler. CONCLUSIONS: No intracardiac thrombus. PLAN: Patient will proceed with cardioversion. MMODL / IJN: [id number] /
--- NOTE | 2021-08-22 15:14 | PCN ---
PROCEDURE NOTE CARDIOVERSION: INDICATION: Persistent atrial fibrillation. DESCRIPTION OF PROCEDURE: After obtaining informed consent, electrical cardioversion was performed using 120 joules of synchronized DC current. The patient converted to sinus rhythm following a single shock. She is on IV heparin and will be switched to Xarelto on discharge. Intracardiac thrombus was ruled out by MICHAEL. DAVID / ANA MARIAN: [id number] /
[2021-08-22 16:11] VITALS: BP 101/72; PULSE 78; RESP 18; TEMP 98.3
[2021-08-22] MEDS ORDERED: RIVAROXABAN 20 MG TAB PO SCH (17:30)
[2021-08-22] MEDS ORDERED: METOPROLOL TARTRATE 12.5 MG TAB PO SCH (21:00)
--- NOTE | 2021-08-23 14:49 | P.DS ---
Providers Date of admission: 08/21/21 14:56 Expected date of discharge: 08/22/21 Attending physician: Mando Fajardo MD Consults: 08/21/21 13:59 Consult Physician Urgent Consulting Provider: Evangelista Whitlock Consult Reason/Comments: afib rvr Do you want consulting provider notified?: Already Contacted Primary care physician: [facility] Course: Paroxysmal atrial fibrillation with RVR Hypothyroidism 36-year-old woman with a history of paroxysmal atrial fibrillation, hypothyroidism presented for evaluation palpitations. In the emergency room, patient was afebrile, 130s over 98, heart rate between 130 and 160, saturating well on room air. CBC shows mild leukocytosis at 12.8, otherwise unremarkable. Chemistries are unremarkable. LFTs are unremarkable. Troponin is less than 0.012. Coags are unremarkable. Chest x-ray shows no acute cardio coronary process. EKG shows atrial fibrillation with rapid ventricular response with a r ate Sugar 157, no ischemic changes. Patient was seen by cardiology in the emergency room, started on diltiazem drip as well as given 150 mg of flecainide IV and attempt to cardiovert chemically. Patient was admitted to observation with telemetry and cardiology consult. She did not spontaneously convert, so was scheduled for MICHAEL with cardioversion. Following procedure, she was successfully returned to sinus rhythm and was discharged home with new orders for metoprolol and xarelto. Echo was unremarkable. Gen: in no apparent distress, resting comfortably in bed Eyes: PERRL, no scleral injection or icterus HENT: normocephalic, atraumatic, good hearing acuity, moist mucous membranes Neck: no tracheal deviation, full range of motion Resp: good air exchange, breathing comfortably with no accessory muscle use, no tactile fremitus, clear to auscultation bilaterally CVS: good distal perfusion x 4, no pitting edema, regular rate and rhythm GI: soft, tenderness to palpation in the epigastrium, periumbilical area, ND, no hepatosplenomegaly : no suprapubic tenderness, left-sided CVAT, zavala catheter not present MSK: no clubbing, no cyanosis, no noted contractures of extremities Skin: no noted rashes, petechiae; temperature of skin is appropriate Neuro: moving all extremities without signs of weakness, CN II-XII intact Psych: cooperative, euthymic mood, insight and judgment intact Patient Condition at Discharge: Good Plan - Discharge Summary Discharge Rx Participant: Yes New Discharge Prescriptions: New Metoprolol Tartrate [Lopressor] 12.5 mg PO BID 30 Days #60 tablet Rivaroxaban [Xarelto] 20 mg PO DAILY #21 tab Continue Multivitamins, Thera [Multivitamin (formulary)] 1 tab PO DAILY Levothyroxine Sodium [Synthroid] 50 mcg PO DAILY L.acidoph,Paracasei, B.lactis [Probiotic] 1 cap PO DAILY Discharge Medication List Multivitamins, Thera [Multivitamin (formulary)] 1 tab PO DAILY 08/03/19 [History] L.acidoph,Paracasei, B.lactis [Probiotic] 1 cap PO DAILY 07/26/21 [History] Levothyroxine Sodium [Synthroid] 50 mcg PO DAILY 07/26/21 [History] Metoprolol Tartrate [Lopressor] 12.5 mg PO BID 30 Days #60 tablet 08/22/21 [Rx] Rivaroxaban [Xarelto] 20 mg PO DAILY #21 tab 08/22/21 [Rx] Follow up Appointment(s)/Referral(s): Victorino Major MD [STAFF PHYSICIAN] - 1 Week (Please call to make follow up appointment ) Kings Gotti MD [Primary Care Provider] - 1-2 days (Please call office to make follow up appointment ) Patient Instructions/Handouts: A-fib (Atrial Fibrillation) (DC), Cardioversion (DC) Discharge Disposition: HOME SELF-CARE
== END 2021-08-22 17:26 | disposition home or self-care (01) | DRG 310 ==
LOC: EC 13:00 → 3SCARD 14:23 → OBSVTOIN 14:56 → 3SCARD 20:58
PROVIDERS: ADMIT Internal Medicine; ATTEND Internal Medicine
PROC: B24BZZ4 Ultrasonography of Heart with Aorta, Transesophageal (ICD-10-PCS; 2021-08-22)
PROC: 5A2204Z Restoration of Cardiac Rhythm, Single (ICD-10-PCS; principal; 2021-08-22 13:10)
DX: I48.19 Other persistent atrial fibrillation (principal); E03.9 Hypothyroidism, unspecified; D72.829 Elevated white blood cell count, unspecified; J45.909 Unspecified asthma, uncomplicated; Z79.890 Hormone replacement therapy; Z82.3 Family history of stroke; Z82.49 Family history of ischemic heart disease and other diseases of the circulatory system; Z82.5 Family history of asthma and other chronic lower respiratory diseases; Z98.51 Tubal ligation status; Z98.890 Other specified postprocedural states; Z80.9 Family history of malignant neoplasm, unspecified; Z82.69 Family history of other diseases of the musculoskeletal system and connective tissue
CPT/HCPCS: 36415; 71046; 80048; 80053; 83735; 84443; 84484; 85025; 85610; 85730; 92960; 93005; 93306; 93312; 93320; 93325; 96374; 96375; 96376; 99291

== ENCOUNTER → 2021-10-04 | Outpatient (CLI) | payer BC ==
--- NOTE | 2021-10-04 14:38 | XR ---
EXAMINATION TYPE: XR chest 2V DATE OF EXAM: 10/04/2021 COMPARISON: 08/21/2021 TECHNIQUE: PA and lateral views submitted. HISTORY: Cough FINDINGS: The lungs are clear and there is no pneumothorax, pleural effusion, or focal pneumonia. Heart size stable. No overt failure. IMPRESSION: 1. No acute process.
== END | disposition home or self-care (01) ==
LOC: RADXRMAIN 14:16
PROVIDERS: ATTEND Nurse Practitioner Family
DX: R05.1 Acute cough (principal)
CPT/HCPCS: 71046

== ENCOUNTER → 2022-01-25 | Outpatient (CLI) | payer BC ==
--- NOTE | 2022-01-28 10:46 | MM ---
Reason for Exam: Screening (asymptomatic). Last mammogram was performed 1 year(s) and 2 month(s) ago. Patient History: Menarche at age 11. First Full-Term at age 27. Patient has history of breast feeding. Patient used Hormonal Contraceptives for 2 years. 2002, Bilateral Reduction. Maternal grandmother had breast cancer, age 52. Mother had breast cancer, age 42. Last menstrual period: 12/22/2021 Risk Values: Melissa 5 year model risk: 0.8%. NCI Lifetime model risk: 19.0%. Prior Study Comparison: 09/30/2019 Bilateral Screening Mammogram, [facility]. 12/06/2020 Bilateral Screening Mammogram, [facility]. Tissue Density: The breast tissue is heterogeneously dense. This may lower the sensitivity of mammography. Findings: Analyzed By CAD. There is no suspicious group of microcalcifications or new suspicious mass in either breast. Overall Assessment: Negative, BI-RAD 1 Management: Screening Mammogram of both breasts in 1 year. A clinical breast exam by your physician is recommended on an annual basis and results should be correlated with mammographic findings. [facility] will attempt to contact patient to return for supplemental views and ultrasound if indicated. Electronically signed and approved by: Al Jennings DO
== END | disposition home or self-care (01) ==
LOC: RADMAMWWP 09:23
PROVIDERS: ATTEND Obstetrics & Gynecology
DX: Z12.31 Encounter for screening mammogram for malignant neoplasm of breast (principal); Z80.3 Family history of malignant neoplasm of breast
CPT/HCPCS: 77063; 77067

== ENCOUNTER → 2022-03-27 | Outpatient (CLI) | payer BC ==
[2022-03-27 15:40] LABS: HCT 40.8 % (37.2-46.3); HGB 13.5 g/dL (12.0-15.0); MCH 27.9 pg (27.0-32.0); MCHC 33.1 g/dL (32.0-37.0); MCV 84.3 fL (80.0-97.0); Mean Platelet Volume 11.5 fL (9.5-12.2); NRBC Per 100 WBC 0 /100 WBCS (0.0-0.0); Platelet Count 234 X 10*3/uL (140-440); RBC 4.84 X 10*6/uL (4.10-5.20); WBC 5.41 X 10*3/uL (4.50-10.00)
[2022-03-27 23:56] LABS: ALT 29 U/L (8-44); AST 23 U/L (13-35); African American GFR (CKD) 110.5 (60.0-200.0); Albumin 4.7 g/dL (3.8-4.9); Albumin/Globulin Ratio 1.89 (1.60-3.17); Alkaline Phosphatase 55 U/L (41-126); Blood Urea Nitrogen 17.5 mg/dL (9.0-27.0); Calcium 9.7 mg/dL (8.7-10.3); Carbon Dioxide 22.5 mmol/L (20.0-27.5); Chloride 102 mmol/L (96-109); Globulin 2.5 g/dL (1.6-3.3); Glucose 100 mg/dL (70-110); Magnesium 2.1 mg/dL (1.5-2.4); Non-African American GFR(CKD) 95.3 (60.0-200.0); Potassium 4.5 mmol/L (3.5-5.5); Sodium 135 mmol/L (135-145); Total Protein 7.2 g/dL (6.2-8.2)
== END | disposition home or self-care (01) ==
LOC: LABWHC1 10:06
PROVIDERS: ATTEND Nurse Practitioner Adult Health
DX: I49.5 Sick sinus syndrome (principal); I48.0 Paroxysmal atrial fibrillation; E55.9 Vitamin D deficiency, unspecified
CPT/HCPCS: 36415; 80053; 82306; 83735; 84443; 85027

== ENCOUNTER → 2023-01-27 | Outpatient (CLI) | payer BC ==
--- NOTE | 2023-01-27 09:21 | MM ---
Reason for Exam: Screening (asymptomatic). Last screening mammogram was performed 12 month(s) ago. Patient History: Menarche at age 11. First Full-Term at age 27. Patient has history of breast feeding. Patient used Hormonal Contraceptives for 2 years. 2002, Bilateral Reduction. Maternal grandmother had breast cancer, age 52. Mother had breast cancer, age 42. Last menstrual period: 01/08/2023 Risk Values: Melissa 5 year model risk: 0.9%. NCI Lifetime model risk: 19.0%. Prior Study Comparison: 09/30/2019 Bilateral Screening Mammogram, [facility]. 12/06/2020 Bilateral Screening Mammogram, [facility]. 01/25/2022 Bilateral MG 3D screening mammo w/cad, [facility]. Tissue Density: The breast tissue is almost entirely fat. Findings: Analyzed By CAD. There is no suspicious group of microcalcifications or new suspicious mass. Overall Assessment: Negative, BI-RAD 1 Management: Screening Mammogram of both breasts in [address] [facility] will attempt to contact patient to return for supplemental views and ultrasound if indicated. Patient should continue monthly self-breast exams. A clinical breast exam by your physician is recommended on an annual basis. This exam should not preclude additional follow-up of suspicious palpable abnormalities. Note on Melissa scores and lifetime risk: 1. A Melissa score greater than 3% is considered moderate risk. If this is the case, consider specialist referral to assess eligibility for a risk reducing agent. 2. If overall lifetime risk for the development of breast cancer is 20% or higher, the patient may qualify for future screening with alternating mammogram and breast MRI. Electronically signed and approved by: Al Jennings DO
== END | disposition home or self-care (01) ==
LOC: RADMAMWWP 07:42
PROVIDERS: ATTEND Surgery
DX: Z12.31 Encounter for screening mammogram for malignant neoplasm of breast (principal); Z80.3 Family history of malignant neoplasm of breast
CPT/HCPCS: 77063; 77067

== ENCOUNTER 2023-03-20 11:00 | Inpatient (IN) | payer BC ==
[2023-03-20] MEDS ORDERED: DILTIAZEM DRIP BOLUS FROM BAG 1 MG SOLN IV ONE (11:14)
[2023-03-20 11:24] LABS: Basophils % (A) 0 %; Eosinophils # (A) 0.1 k/uL (0-0.7); Eosinophils % (A) 1 %; HCT 43.4 % (34.0-46.0); HGB 14.8 gm/dL (11.4-16.0); Lymphocytes # (A) 2.7 k/uL (1.0-4.8); Lymphocytes % (A) 38 %; MCH 28.4 pg (25.0-35.0); MCHC 34.2 g/dL (31.0-37.0); MCV 83.2 fL (80.0-100.0); Mean Platelet Volume 8.9; Monocytes # (A) 0.4 k/uL (0-1.0); Monocytes % (A) 6 %; Neutrophils # (A) 3.8 k/uL (1.3-7.7); Neutrophils % (A) 53 %; Platelet Count 292 k/uL (150-450); RBC 5.22 m/uL (3.80-5.40); RDW 11.9 % (11.5-15.5); WBC 7.2 k/uL (3.8-10.6)
[2023-03-20] MEDS: DILTIAZEM 125 MG in SODIUM CHLORIDE 0.9% 100 ML IV SCH ×2 (11:31→18:57)
[2023-03-20 11:39] LABS: INR 0.9 (<1.2); Partial Thromboplastin Time 26.1 sec (22.0-30.0); Prothrombin Time 10.3 sec (10.0-12.5)
[2023-03-20 11:40] LABS: ALT 35 U/L (4-34); AST 30 U/L (14-36); African American GFR (CKD) >90 (>60 ml/min/1.73 sqM); Albumin 5.1 g/dL (3.5-5.0); Alkaline Phosphatase 58 U/L (38-126); Anion Gap 12 mmol/L; Blood Urea Nitrogen 17 mg/dL (7-17); Carbon Dioxide 25 mmol/L (22-30); Chloride 104 mmol/L (98-107); Glucose 95 mg/dL (74-99); Magnesium 2.1 mg/dL (1.6-2.3); Non-African American GFR(CKD) >90 (>60 ml/min/1.73 sqM); Potassium 4.4 mmol/L (3.5-5.1); Sodium 141 mmol/L (137-145); Total Bilirubin 0.6 mg/dL (0.2-1.3); Total Protein 8.4 g/dL (6.3-8.2)
[2023-03-20] MEDS ORDERED: NITROGLYCERIN SL TABS 0.4 MG TAB SUBLINGUAL PRN (12:39)
[2023-03-20] MEDS ORDERED: METOPROLOL TARTRATE 25 MG TAB PO STA (12:47)
--- NOTE | 2023-03-20 13:08 | ED ---
Arrhythmia/Palpitations HPI - General Chief Complaint: Arrhythmia/Palpitations Stated Complaint: Chest pain Time Seen by Provider: 03/20/23 11:04 Source: patient, RN notes reviewed Mode of arrival: ambulatory Limitations: no limitations - History of Present Illness Initial Comments: 37-year-old female presents emergency department to complaint of palpitations. Patient states that she's had palpitations this morning she does admit to taken pseudoephedrine. Patient has a history of A. fib is not on pain medications. Patient does see Dr. Major - Related Data Home Medications Medication Instructions Recorded Confirmed Multivitamins, Thera [Multivitamin 1 tab PO DAILY 08/03/19 08/21/21 (formulary)] L.acidoph,Paracasei, B.lactis 1 cap PO DAILY 07/26/21 08/21/21 [Probiotic] Levothyroxine Sodium [Synthroid] 50 mcg PO DAILY 07/26/21 08/21/21 Previous Rx's Medication Instructions Recorded Metoprolol Tartrate [Lopressor] 12.5 mg PO BID 30 Days #60 tablet 08/22/21 Rivaroxaban [Xarelto] 20 mg PO DAILY #21 tab 08/22/21 Allergies Allergy/AdvReac Type Severity Reaction Status Date / Time ciprofloxacin [From Cipro] Allergy Anaphylaxis Verified 03/20/23 11:16 ciprofloxacin HCl Allergy Anaphylaxis Verified 03/20/23 11:16 [From Cipro] Review of Systems ROS Statement: Those systems with pertinent positive or pertinent negative responses have been documented in the HPI. ROS Other: All systems not noted in ROS Statement are negative. Past Medical History Past Medical History: Atrial Fibrillation, Asthma, Thyroid Disorder History of Any Multi-Drug Resistant Organisms: None Reported Past Surgical History: Breast Surgery, Section, Tubal Ligation Additional Past Surgical History / Comment(s): reduction, uterine ablation 3 w eeks age as of 08/21, Cardiac ablation. Past Anesthesia/Blood Transfusion Reactions: No Reported Reaction Past Psychological History: No Psychological Hx Reported Smoking Status: Never smoker Past Alcohol Use History: Occasional Past Drug Use History: None Reported - Past Family History Father Family Medical History: AFIB, CVA/TIA, Hypertension Mother Family Medical History: AFIB, Cancer, COPD, Fibromyalgia General Exam Limitations: no limitations General appearance: alert, in no apparent distress Head exam: Present: atraumatic, normocephalic, normal inspection Neck exam: Present: normal inspection. Absent: tenderness, meningismus, lymphadenopathy Respiratory exam: Present: normal lung sounds bilaterally. Absent: respiratory distress, wheezes, rales, rhonchi, stridor Cardiovascular Exam: Present: tachycardia, irregular rhythm, normal heart sounds. Absent: regular rate, normal rhythm, systolic murmur, diastolic murmur, rubs, gallop, clicks GI/Abdominal exam: Present: soft, normal bowel sounds. Absent: distended, tenderness, guarding, rebound, rigid Course Vital Signs 03/20/23 03/20/23 03/20/23 11:12 11:38 12:03 Pulse Rate 144 H 135 H 133 H Respiratory 20 18 18 Rate Blood Pressure 144/113 112/80 105/92 O2 Sat by Pulse 96 99 97 Oximetry EKG Findings - EKG Comments: EKG Findings:: EKG performed at 10:51 A. fib with RVR rate of 142 QRS 85 QT/QTC 292/374 - EKG Results: EKG: interpreted by KYUNG Medical Decision Making - Medical Decision Making Was pt. sent in by a medical professional or institution (, PA, HSE SPECIALIST, urgent care, hospital, or long term...) When possible be specific @ -No Did you speak to anyone other than the patient for history (EMS, parent, family, police, friend...)? What history was obtained from this source @ -No Did you review nursing and triage notes (agree or disagree)? Why? @ -I reviewed and agree with nursing and triage notes Were old charts reviewed (outside hosp., previous admission, EMS record, old EKG, old radiological studies, urgent care reports/EKG's, long term records)? Report findings @ -Reviewed prior cardiology evaluation, laboratory studies Differential Diagnosis (chest pain, altered mental status, abdominal pain women, abdominal pain men, vaginal bleeding, weakness, fever, dyspnea, syncope, headache, dizziness, GI bleed, back pain, seizure, CVA, palpatations, mental health, musculoskeletal)? @ -Differential Palpitations Ventricular arrhythmias, atrial arrhythmias, myocardial infarction, anemia, thyrotoxicosis, electrolyte imbalance, hypokalemia, pulmonary embolism, pulmonary disease, drugs, alcohol, anxiety, stress.... This is not meant to be an all-inclusive list. EKG interpreted by me (3pts min.). @ -As above X-rays interpreted by me (1pt min.). @ -None done CT interpreted by me (1pt min.). @ -None done U/S interpreted by me (1pt. min.). @ -None done What testing was considered but not performed or refused? (CT, X-rays, U/S, l abs)? Why? @ -None What meds were considered but not given or refused? Why? @ -None Did you discuss the management of the patient with other professionals (professionals i.e. , PA, HSE SPECIALIST, lab, RT, psych nurse, director social service, drop board man, teacher, sewage reticulation drafting officer, case assistant)? Give summary @ -Some physician for admission for A. fib RVR with consult cardiology Was smoking cessation discussed for >3mins.? @ -No Was critical care preformed (if so, how long)? @ -35 minutes Were there social determinants of health that impacted care today? How? (Homelessness, low income, unemployed, alcoholism, drug addiction, tr ansportation, low edu. Level, literacy, decrease access to med. care, senior living, rehab)? @ -No Was there de-escalation of care discussed even if they declined (Discuss DNR or withdrawal of care, Hospice)? DNR status @ -No What co-morbidities impacted this encounter? (DM, HTN, Smoking, COPD, CAD, Cancer, CVA, ARF, Chemo, Hep., AIDS, mental health diagnosis, sleep apnea, morbid obesity)? @ -A. fib Was patient admitted / discharged? Hospital course, mention meds given and route, prescriptions, significant lab abnormalities, going to OR and other pertinent info. @ -Admitted patient was initially started on Cardizem, patient had full set of left wrist there is some EKG labs are unremarkable. Patient with consult cardiology in which patient had cardioversion in the past. Undiagnosed new problem with uncertain prognosis? @ -No Drug Therapy requiring intensive monitoring for toxicity (Heparin, Nitro, Insulin, Cardizem)? @ -Cardizem Were any procedures done? @ -No Diagnosis/symptom? @ -afib rvr Acute, or Chronic, or Acute on Chronic? @ -[acute Uncomplicated (without systemic symptoms) or Complicated (systemic symptoms)? @ -[uncomplicated Side effects of treatment? @ -No Exacerbation, Progression, or Severe Exacerbation? @ -No Poses a threat to life or bodily function? How? (Chest pain, USA, MD, pneumonia, PE, COPD, DKA, ARF, appy, cholecystitis, CVA, Diverticulitis, Homicidal, Suicidal, threat to staff... and all critical care pts) @ -[yes possible arrhythmia - Lab Data Result diagrams: 03/20/23 11:17 03/20/23 11:17 Lab Results 03/20/23 03/20/23 03/20/23 Range/Units 11:17 11:17 11:17 WBC 7.2 (3.8-10.6) k/uL RBC 5.22 (3.80-5.40) m/uL Hgb 14.8 (11.4-16.0) gm/dL Hct 43.4 (34.0-46.0) % MCV 83.2 (80.0-100.0) fL MCH 28.4 (25.0-35.0) pg MCHC 34.2 (31.0-37.0) g/dL RDW 11.9 (11.5-15.5) % Plt Count 292 (150-450) k/uL MPV 8.9 Neutrophils % 53 % Lymphocytes % 38 % Monocytes % 6 % Eosinophils % 1 % Basophils % 0 % Neutrophils # 3.8 (1.3-7.7) k/uL Lymphocytes # 2.7 (1.0-4.8) k/uL Monocytes # 0.4 (0-1.0) k/uL Eosinophils # 0.1 (0-0.7) k/uL Basophils # 0.0 (0-0.2) k/uL PT 10.3 (10.0-12.5) sec INR 0.9 (<1.2) APTT 26.1 (22.0-30.0) sec Sodium 141 (137-145) mmol/L Potassium 4.4 (3.5-5.1) mmol/L Chloride 104 (98-107) mmol/L Carbon Dioxide 25 (22-30) mmol/L Anion Gap 12 mmol/L BUN 17 (7-17) mg/dL Creatinine 0.73 (0.52-1.04) mg/dL Est GFR (CKD-EPI)AfAm >90 (>60 ml/min/1.73 sqM) Est GFR (CKD-EPI)NonAf >90 (>60 ml/min/1.73 sqM) Glucose 95 (74-99) mg/dL Calcium 10.0 (8.4-10.2) mg/dL Magnesium 2.1 (1.6-2.3) mg/dL Total Bilirubin 0.6 (0.2-1.3) mg/dL AST 30 (14-36) U/L ALT 35 H (4-34) U/L Alkaline Phosphatase 58 (38-126) U/L Troponin I (0.000-0.034) ng/mL Total Protein 8.4 H (6.3-8.2) g/dL Albumin 5.1 H (3.5-5.0) g/dL 03/20/23 Range/Units 11:17 WBC (3.8-10.6) k/uL RBC (3.80-5.40) m/uL Hgb (11.4-16.0) gm/dL Hct (34.0-46.0) % MCV (80.0-100.0) fL MCH (25.0-35.0) pg MCHC (31.0-37.0) g/dL RDW (11.5-15.5) % Plt Count (150-450) k/uL MPV Neutrophils % % Lymphocytes % % Monocytes % % Eosinophils % % Basophils % % Neutrophils # (1.3-7.7) k/uL Lymphocytes # (1.0-4.8) k/uL Monocytes # (0-1.0) k/uL Eosinophils # (0-0.7) k/uL Basophils # (0-0.2) k/uL PT (10.0-12.5) sec INR (<1.2) APTT (22.0-30.0) sec Sodium (137-145) mmol/L Potassium (3.5-5.1) mmol/L Chloride (98-107) mmol/L Carbon Dioxide (22-30) mmol/L Anion Gap mmol/L BUN (7-17) mg/dL Creatinine (0.52-1.04) mg/dL Est GFR (CKD-EPI)AfAm (>60 ml/min/1.73 sqM) Est GFR (CKD-EPI)NonAf (>60 ml/min/1.73 sqM) Glucose (74-99) mg/dL Calcium (8.4-10.2) mg/dL Magnesium (1.6-2.3) mg/dL Total Bilirubin (0.2-1.3) mg/dL AST (14-36) U/L ALT (4-34) U/L Alkaline Phosphatase (38-126) U/L Troponin I <0.012 (0.000-0.034) ng/mL Total Protein (6.3-8.2) g/dL Albumin (3.5-5.0) g/dL Critical Care Time Critical Care Time: Yes Total Critical Care Time: 35 Disposition Clinical Impression: Atrial fibrillation with RVR Disposition: ADMITTED IP TO THIS HOSP Condition: Fair Referrals: Peter Oleary MD [Primary Care Provider] - 1-2 days Time of Disposition: 12:24
[2023-03-20] MEDS ORDERED: HEPARIN SODIUM 1,000 UN/ML (10ML VL) IV PRN (13:12)
[2023-03-20] MEDS ORDERED: HEPARIN SODIUM 1,000 UN/ML (10ML VL) IV ONE (13:12)
[2023-03-20] MEDS ORDERED: HEPARIN SOD,PORK IN 0.45% NACL 25,000 UNIT in 0.45% NACL 1 250ML.BAG IV SCH (13:15)
--- NOTE | 2023-03-20 14:09 | P.CRDCN ---
History of Present Illness History of present illness: HISTORY OF PRESENT ILLNESS: This is a 37-year-old female with a past medical history significant for hypothyroidism and paroxysmal atrial fibrillation. Patient follows in the office with Dr. Major. We have been asked to see the patient in consultation for atrial fibrillation with RVR. Patient examined at the bedside in the emergency room. Patient states this morning she was having some seasonal allergies and took a dose of Sudafed. Shortly afterwards she began to feel palpitations. Patient was found to be in A. fib with RVR. She is currently on a Cardizem drip at 15 mg an hour. She also just received a dose of metoprolol tartrate at the time of examination. She remains in atrial fibrillation with a heart rate around [id number]. She does report feeling palpitations and slightly lightheaded. She denies chest pain or pressure. She denies shortness of breath. The patient had an outpatient event monitor recently which she states revealed episodes of brief atrial fibrillation and nonsustained ventricular tachycardia. She states she is supposed to receive a loop recorder in the near future. The patient states that she used to be on flecainide on an as-needed basis when she felt palpitations however she is no longer taking this. She was also prescribed metoprolol in the past but this was stopped due to hypotension and bradycardia. She has been on anticoagulation the past, however she is not anticoagulated at this time. REVIEW OF SYSTEMS: At the time of my exam: CONSTITUTIONAL: Denies fever or chills. HEENT: Denies blurred vision, vision changes, or eye pain. Denies hemoptysis CARDIOVASCULAR: Denies chest pain. Denies orthopnea. Denies PND. Denies palpitations RESPIRATORY: Denies shortness of breath. GASTROINTESTINAL: Denies abdominal pain. Denies nausea or vomiting. HEMATOLOGIC: Denies bleeding disorders. GENITOURINARY: Denies any blood in urine. SKIN: Denies pruitis. Denies rash. PHYSICAL EXAM: VITAL SIGNS: Reviewed. GENERAL: Well-developed in no acute distress. HEENT: Head is normocephalic. Pupils are equal, round. Sclerae anicteric. Mucous membranes of the mouth are moist. Neck supple. No JVD or thyromegaly LUNGS: Respirations even and unlabored. Lungs essentially clear to auscultation bilaterally. HEART: Tachycardic. Irregular rate and rhythm. S1 and S2 heard. ABDOMEN: Soft. Nondistended. Nontender. EXTREMITIES: Normal range of motion. No clubbing or cyanosis. Peripheral pulses intact. No lower extremity edema NEUROLOGIC: Awake and alert. Oriented x 3. ASSESSMENT: Palpitations Paroxysmal atrial fibrillation with RVR History of cardioversion, August 2021 History of A. fib ablation (2019?) Hypothyroidism History of intolerance to beta blockers secondary to hypotension and bradycardia PLAN: Continue IV Cardizem Patient received a one-time dose of metoprolol at the time of examination Continue telemetry monitoring Begin IV heparin Nothing by mouth at midnight Patient will undergo MICHAEL and cardioversion tomorrow if she remains in atrial fibrillation Further recommendations pending patient's course Nurse practitioner note has been reviewed by physician. Signing provider agrees with the documented findings, assessment, and plan of care. Past Medical History Past Medical History: Atrial Fibrillation, Asthma, Thyroid Disorder History of Any Multi-Drug Resistant Organisms: None Reported Past Surgical History: Breast Surgery, Section, Tubal Ligation Additional Past Surgical History / Comment(s): reduction, uterine ablation 3 weeks age as of 08/21, Cardiac ablation. Past Anesthesia/Blood Transfusion Reactions: No Reported Reaction Past Psychological History: No Psychological Hx Reported Smoking Status: Never smoker Past Alcohol Use History: Occasional Past Drug Use History: None Reported - Past Family History Father Family Medical History: AFIB, CVA/TIA, Hypertension Mother Family Medical History: AFIB, Cancer, COPD, Fibromyalgia Medications and Allergies Home Medications Medication Instructions Recorded Confirmed Type Multivitamins, Thera [Multivitamin 1 tab PO DAILY 08/03/19 03/20/23 History (formulary)] L.acidoph,Paracasei, B.lactis 1 cap PO DAILY 07/26/21 03/20/23 History [Probiotic] Levothyroxine Sodium [Synthroid] 50 mcg PO DAILY 07/26/21 03/20/23 History Albuterol Inhaler [Ventolin Hfa 1 - 2 puff INHALATION RT-Q6H PRN 03/20/23 03/20/23 History Inhaler] Cholecalciferol [Vitamin D3 (125 125 mcg PO DAILY 03/20/23 03/20/23 History Mcg = 5000 Iu)] [place]-3 Fatty Acids [[place]-3] 1,000 mg PO DAILY 03/20/23 03/20/23 History Semaglutide [Ozempic] 2 mg SQ WARE 03/20/23 03/20/23 History Allergies Allergy/AdvReac Type Severity Reaction Status Date / Time ciprofloxacin [From Cipro] Allergy Anaphylaxis Verified 03/20/23 13:58 ciprofloxacin HCl Allergy Anaphylaxis Verified 03/20/23 13:58 [From Cipro] Physical Exam Vitals: Vital Signs Pulse Resp BP Pulse Ox 03/20/23 12:03 133 H 18 105/92 97 03/20/23 11:38 135 H 18 112/80 99 03/20/23 11:12 144 H 20 144/113 96 Intake and Output 03/19/23 03/20/23 03/20/23 22:59 06:59 14:59 Intake Total 5.667 Balance 5.667 Intake: Intake, IV Titration 5.667 Amount Diltiazem 125 mg In 5.667 Sodium Chloride 0.9% 100 ml @ 10 MG/HR 10 mls/hr IV .[id number] [facility] Rx#: [id number] Other: Weight 104.326 kg Results 03/20/23 11:17 03/20/23 11:17 Cardiac Enzymes 03/20/23 03/20/23 Range/Units 11:17 11:17 AST 30 (14-36) U/L Troponin I <0.012 (0.000-0.034) ng/mL Coagulation 03/20/23 Range/Units 11:17 PT 10.3 (10.0-12.5) sec APTT 26.1 (22.0-30.0) sec CBC 03/20/23 Range/Units 11:17 WBC 7.2 (3.8-10.6) k/uL RBC 5.22 (3.80-5.40) m/uL Hgb 14.8 (11.4-16.0) gm/dL Hct 43.4 (34.0-46.0) % Plt Count 292 (150-450) k/uL Comprehensive Metabolic Panel 03/20/23 Range/Units 11:17 Sodium 141 (137-145) mmol/L Potassium 4.4 (3.5-5.1) mmol/L Chloride 104 (98-107) mmol/L Carbon Dioxide 25 (22-30) mmol/L BUN 17 (7-17) mg/dL Creatinine 0.73 (0.52-1.04) mg/dL Glucose 95 (74-99) mg/dL Calcium 10.0 (8.4-10.2) mg/dL AST 30 (14-36) U/L ALT 35 H (4-34) U/L Alkaline Phosphatase 58 (38-126) U/L Total Protein 8.4 H (6.3-8.2) g/dL Albumin 5.1 H (3.5-5.0) g/dL Current Medications Generic Name Dose Route Start Last Admin Trade Name Freq PRN Reason Stop Dose Admin Heparin Sodium (Porcine) 0 unit 03/20/23 13:12 Heparin Sodium 1,000 Un/Ml (10ml Vl) IV PER PROTOCOL PRN Low PTT Protocol Diltiazem HCl 125 mg/ Sodium 125 mls @ 10 mls/hr 03/20/23 11:15 03/20/23 12:05 Chloride IV 15 mg/hr .[id number] TED 15 mls/hr Infusion 10 MG/HR Heparin Sodium/Sodium Chloride 250 mls @ 10 mls/hr 03/20/23 13:15 25,000 unit/ Sodium Chloride IV .Q24H [facility] Protocol 9.585 UNITS/KG/HR Nitroglycerin 0.4 mg 03/20/23 12:39 Nitroglycerin Sl Tabs 0.4 Mg Tab SUBLINGUAL Q5M PRN Chest Pain Intake and Output 03/19/23 03/20/23 03/20/23 22:59 06:59 14:59 Intake Total 5.667 Balance 5.667 Intake: Intake, IV Titration 5.667 Amount Diltiazem 125 mg In 5.667 Sodium Chloride 0.9% 100 ml @ 10 MG/HR 10 mls/hr IV .[id number] [facility] Rx#: [id number] Other: Weight 104.326 kg Patient Weight 03/21/23 06:59 Weight 104.326 kg 03/20/23 11:17 03/20/23 11:17
[2023-03-20 14:21] LABS: INR 0.9 (<1.2); Partial Thromboplastin Time 25.5 sec (22.0-30.0); Prothrombin Time 10.2 sec (10.0-12.5)
[2023-03-20] MEDS ORDERED: CALCIUM CARBONATE 500 MG CHEWABLE PO PRN (14:41)
[2023-03-20] MEDS ORDERED: MELATONIN 3 MG TABLET PO PRN (14:41)
[2023-03-20] MEDS ORDERED: ONDANSETRON 4 MG/2 ML VIAL IVP PRN (14:41)
[2023-03-20] MEDS ORDERED: ACETAMINOPHEN TAB 325 MG TAB PO PRN (14:41)
[2023-03-20] MEDS ORDERED: NALOXONE 0.4 MG/ML 1 ML VIAL IV PRN (14:41)
--- NOTE | 2023-03-20 14:44 | P.HPIM ---
History of Present Illness H&P Date: 03/20/23 Patient is a 37-year-old female with known history of atrial fibrillation status post cardioversion and ablation, hypothyroidism, and vitamin D deficiency who presented to the emergency department with complaints of palpitations. On arrival to the ER she was found to be in atrial fibrillation with rapid ventricular response and a heart rate of 144. Amatory analysis included CBC, coags, CMP, and troponin all of which were unremarkable. She was started on a Cardizem drip which was quickly escalated to 15 mg/h. Arrangements were made for admission. Patient seen and examined at bedside. She reports that over the last couple of days she has been having some palpitations. She had noted this previously and had been following with her character actress and underwent a Holter monitor, they were considering a possible loop recorder. Today she noted palpitations with a catching sensation in her chest. This morning she did have coffee and took a Sudafed due to some itchy eyes and watery nose. She denies any recent cough, cold, fever, flu. She is no longer on any rate controlling medications. Vital signs reviewed General: nontoxic, no distress, appears at stated age Derm: warm, dry Eyes: EOMI, no lid lag, anicteric sclera ENT: Nose and ears atraumatic, no thrush, no pharyngeal erythema Cardiovascular: S1S2 regular, no murmur, positive posterior tibial pulse bilateral, no edema Lungs: clear to auscultation bilateral, no rhonchi, no rales, no wheeze, no accessory muscle use Ext: no gross muscle atrophy, muscle strength 5 out of 5 in all 4 extremities, no contractures Neuro: CN II-XII grossly intact, no focal neurodeficits Psych: Alert, oriented, appropriate affect Assessment/Plan: Atrial fibrillation with rapid ventricular response -Metoprolol 25 mg p.o. x 1 now, continue Cardizem drip at 15 mg/h -Case discussed with cardiology [employer]ITY OFFICER. They will continue metoprolol 25 mg twice daily. Will continue to monitor on telemetry, if she continues to be in atrial fibrillation with rapid ventricular response tomorrow we will consider cardioversion. They do recommend starting heparin drip and hopes that patient will cardiovert. -Check TSH - tele Hypothyroidism -Levothyroxine 50 mcg daily Imaging: As per HPI Data Review: As per HPI The patient is admitted with an anticipated greater than 2 midnight stay for evaluation of atrial fibrillation with rapid ventricular response failing outpatient therapy. Surrogate decision-maker: CODE STATUS: Full DVT prophylaxis: Heparin drip Anticipated discharge date: 24 to [address]: Home This dictation was prepared using [employer] voice recognition software. Though every attempt is made to correct errors during dictation some may still exist. Past Medical History Past Medical History: Atrial Fibrillation, Asthma, Thyroid Disorder History of Any Multi-Drug Resistant Organisms: None Reported Past Surgical History: Breast Surgery, Section, Tubal Ligation Additional Past Surgical History / Comment(s): reduction, uterine ablation 3 weeks age as of 08/21, Cardiac ablation. Past Anesthesia/Blood Transfusion Reactions: No Reported Reaction Past Psychological History: No Psychological Hx Reported Smoking Status: Never smoker Past Alcohol Use History: Occasional Past Drug Use History: None Reported - Past Family History Father Family Medical History: AFIB, CVA/TIA, Hypertension Mother Family Medical History: AFIB, Cancer, COPD, Fibromyalgia Medications and Allergies Home Medications Medication Instructions Recorded Confirmed Type Multivitamins, Thera [Multivitamin 1 tab PO DAILY 08/03/19 03/20/23 History (formulary)] L.acidoph,Paracasei, B.lactis 1 cap PO DAILY 07/26/21 03/20/23 History [Probiotic] Levothyroxine Sodium [Synthroid] 50 mcg PO DAILY 07/26/21 03/20/23 History Albuterol Inhaler [Ventolin Hfa 1 - 2 puff INHALATION RT-Q6H PRN 03/20/23 03/20/23 History Inhaler] Cholecalciferol [Vitamin D3 (125 125 mcg PO DAILY 03/20/23 03/20/23 History Mcg = 5000 Iu)] [place]-3 Fatty Acids [New[place]-3] 1,000 mg PO DAILY 03/20/23 03/20/23 History Semaglutide [Ozempic] 2 mg SQ WARE 03/20/23 03/20/23 History Allergies Allergy/AdvReac Type Severity Reaction Status Date / Time ciprofloxacin [From Cipro] Allergy Anaphylaxis Verified 03/20/23 13:58 ciprofloxacin HCl Allergy Anaphylaxis Verified 03/20/23 13:58 [From Cipro] Physical Exam Osteopathic Statement: *. No significant issues noted on an osteopathic structural exam other than those noted in the History and Physical/Consult. Vitals: Vital Signs Pulse Resp BP Pulse Ox 03/20/23 12:03 133 H 18 105/92 97 03/20/23 11:38 135 H 18 112/80 99 03/20/23 11:12 144 H 20 144/113 96 Intake and Output 03/19/23 03/20/23 03/20/23 22:59 06:59 14:59 Intake Total 5.667 Balance 5.667 Intake: Intake, IV Titration 5.667 Amount Diltiazem 125 mg In 5.667 Sodium Chloride 0.9% 100 ml @ 10 MG/HR 10 mls/hr IV .[id number] [facility] Rx#: [id number] Other: Weight 104.326 kg Results CBC & Chem 7: 03/20/23 11:17 03/20/23 11:17 Labs: Abnormal Lab Results - Last 24 Hours (Table) 03/20/23 Range/Units 11:17 ALT 35 H (4-34) U/L Total Protein 8.4 H (6.3-8.2) g/dL Albumin 5.1 H (3.5-5.0) g/dL
[2023-03-20 15:32] LABS: Basophils % (A) 0 %; Eosinophils # (A) 0.1 k/uL (0-0.7); Eosinophils % (A) 1 %; HCT 41.6 % (34.0-46.0); HGB 14.4 gm/dL (11.4-16.0); Lymphocytes # (A) 2.3 k/uL (1.0-4.8); Lymphocytes % (A) 32 %; MCH 28.9 pg (25.0-35.0); MCHC 34.5 g/dL (31.0-37.0); MCV 83.7 fL (80.0-100.0); Mean Platelet Volume 9.2; Monocytes # (A) 0.4 k/uL (0-1.0); Monocytes % (A) 5 %; Neutrophils # (A) 4.2 k/uL (1.3-7.7); Neutrophils % (A) 59 %; Platelet Count 276 k/uL (150-450); RBC 4.97 m/uL (3.80-5.40); RDW 11.9 % (11.5-15.5); WBC 7.2 k/uL (3.8-10.6)
[2023-03-20] MEDS ORDERED: FLECAINIDE 50 MG TAB PO STA (16:57)
[2023-03-20] MEDS ORDERED: RIVAROXABAN 20 MG TAB PO STA (16:57)
[2023-03-20] MEDS ORDERED: SODIUM CHLORIDE 0.9% 1,000 ML IV SCH ×2 (17:15→19:00)
[2023-03-20] MEDS ORDERED: SODIUM CHLORIDE 0.9% 1,000 ML IV ONE (18:00)
--- NOTE | 2023-03-20 18:45 | P.EPCON ---
Electrophysiology Consult - EP Consult Electrophysiology Consult: This is Dr. Major dictating a consult on this patient The patient was interviewed and examined IMPRESSION / ASSESSMENT: Persistent atrial fibrillation, recurrent Hypothyroidism on replacement therapy Increased BMI PLAN: Continue heparin Start xarelto Flecainide 100 mg twice daily Electrical cardioversion tomorrow Reduced the dose of levothyroxine to 37.5 g by mouth daily to keep TSH around 2.0 HPI Patient was in the ER working. She has a stuffy nose and took Sudafed Subsequently she went to atrial fibrillation She was admitted to the hospital started on IV heparin and IV Cardizem ROS: No fever chills or rigors, no cough, phlegm or expectoration, no nausea, vomiting or diarrhea, no hematuria, dysuria, no musculoskeletal complaints, no strokes or seizures, no skin lesions. EXAMINATION: Heart rate 144 beats a minute Blood pressure 180 79 mmHg Heart sounds are irregular REVIEW OF LABS, ECG & MEDICAL DATA Hemoglobin 14.4 Electrolytes normal Magnesium 2.1 TSH 0.9 on 50 g of levothyroxine
[2023-03-20] MEDS: FLECAINIDE 50 MG TAB PO SCH (20:02)
[2023-03-20] MEDS: METOPROLOL TARTRATE 25 MG TAB PO SCH (20:02)
[2023-03-21] MEDS: METOPROLOL TARTRATE 25 MG TAB PO SCH (06:05)
[2023-03-21] MEDS: FLECAINIDE 50 MG TAB PO SCH (06:05)
[2023-03-21] MEDS ORDERED: LEVOTHYROXINE 50 MCG TAB PO SCH (06:30)
[2023-03-21] MEDS ORDERED: LEVOTHYROXINE 75 MCG TAB PO SCH (06:30)
[2023-03-21] MEDS ORDERED: LACTATED RINGERS 1,000 ML IV ONE (06:40)
[2023-03-21] MEDS ORDERED: PROPOFOL 10 MG/ML 20 ML VIAL IV ONE (07:00)
[2023-03-21 07:24] VITALS: TEMP 97.3
[2023-03-21 07:48] VITALS: BP 93/62; PULSE 78; RESP 14
--- NOTE | 2023-03-21 08:18 | P.EPPROC ---
- EP Procedure Note Electrophysiology Procedure Note: Diagnosis Persistent atrial fibrillation with RVR Failed flecainide Details Successful electrical cardioversion to sinus rhythm Plan continue heparin for 4 hours Discharge home today Discontinue flecainide May use oral anticoagulation for one week post cardioversion
[2023-03-21] MEDS ORDERED: RIVAROXABAN 20 MG TAB PO ONE (09:00)
[2023-03-21] MEDS ORDERED: CHOLECALCIFEROL 125 MCG (5000 IU) TABLET PO SCH (09:00)
[2023-03-21] MEDS ORDERED: METOPROLOL TARTRATE 12.5 MG TAB PO SCH (09:00)
[2023-03-21 09:44] LABS: Basophils % (A) 0 %; Eosinophils # (A) 0.1 k/uL (0-0.7); Eosinophils % (A) 2 %; HCT 43.1 % (34.0-46.0); HGB 14.6 gm/dL (11.4-16.0); Lymphocytes # (A) 2.5 k/uL (1.0-4.8); Lymphocytes % (A) 39 %; MCV 85.2 fL (80.0-100.0); Monocytes # (A) 0.4 k/uL (0-1.0); Monocytes % (A) 6 %; Neutrophils # (A) 3.1 k/uL (1.3-7.7); Neutrophils % (A) 49 %; Platelet Count 265 k/uL (150-450); RBC 5.05 m/uL (3.80-5.40); RDW 12.1 % (11.5-15.5); WBC 6.3 k/uL (3.8-10.6)
--- NOTE | 2023-03-21 12:13 | P.PN ---
Subjective HISTORY OF PRESENT ILLNESS: This is a 37-year-old female with a past medical history significant for hypothyroidism and paroxysmal atrial fibrillation. Patient follows in the office with Dr. Major. We have been asked to see the patient in consultation for atrial fibrillation with RVR. Patient examined at the bedside in the emergency room. Patient states this morning she was having some seasonal allergies and took a dose of Sudafed. Shortly afterwards she began to feel palpitations. Patient was found to be in A. fib with RVR. She is currently on a Cardizem drip at 15 mg an hour. She also just received a dose of metoprolol tartrate at the time of examination. She remains in atrial fibrillation with a heart rate around [id number]. She does report feeling palpitations and slightly lightheaded. She denies chest pain or pressure. She denies shortness of breath. The patient had an outpatient event monitor recently which she states revealed episodes of brief atrial fibrillation and nonsustained ventricular tachycardia. She states she is supposed to receive a loop recorder in the near future. The patient states that she used to be on flecainide on an as-needed basis when she felt palpitations however she is no longer taking this. She was also prescribed metoprolol in the past but this was stopped due to hypotension and bradycardia. She has been on anticoagulation the past, however she is not anticoagulated at this time. 03/21/2023 Patient examined this morning at bedside. She is status post cardioversion this morning. She's maintaining sinus mechanism. Denies chest pain or pressure she denies shortness of breath. Vital signs are stable. PHYSICAL EXAM: VITAL SIGNS: Reviewed. GENERAL: Well-developed in no acute distress. HEENT: Head is normocephalic. Pupils are equal, round. Sclerae anicteric. Mucous membranes of the mouth are moist. Neck supple. No JVD or thyromegaly LUNGS: Respirations even and unlabored. Lungs essentially clear to auscultation bilaterally. HEART: Tachycardic. Irregular rate and rhythm. S1 and S2 heard. ABDOMEN: Soft. Nondistended. Nontender. EXTREMITIES: Normal range of motion. No clubbing or cyanosis. Peripheral pulses intact. No lower extremity edema NEUROLOGIC: Awake and alert. Oriented x 3. ASSESSMENT: Palpitations Paroxysmal atrial fibrillation with RVR Status post cardioversion, 03/21/2023 History of cardioversion, August 2021 History of A. fib ablation (2019?) Hypothyroidism History of intolerance to beta blockers secondary to hypotension and bradycardia PLAN: Per Dr. Major, patient to be discharged with 1 week of Xarelto Discontinue flecainide Begin metoprolol tartrate 12.5 mg twice a day Patient may be discharged home today from a cardiac standpoint She is to follow up post discharge in the office Nurse practitioner note has been reviewed by physician. Signing provider agrees with the documented findings, assessment, and plan of care. Objective - Vital Signs Vital signs: Vital Signs Temp 97.3 F L 03/21/23 06:57 Pulse 78 03/21/23 08:00 Resp 14 03/21/23 07:43 BP 93/62 03/21/23 07:43 Pulse Ox 98 03/21/23 07:43 FiO2 Intake & Output 03/20/23 03/21/23 03/21/23 18:59 06:59 18:59 Intake Total 97.667 713.167 Balance 97.667 713.167 Weight 104.326 kg Intake: IV 100 Intake, IV Titration 97.667 73.167 Amount Diltiazem 125 mg In 97.667 Sodium Chloride 0.9% 100 ml @ 10 MG/HR 10 mls/hr IV .[id number] [facility] Rx#: [id number] Heparin Sod,Pork in 0.45% 73.167 NaCl 25,000 unit In 0.45 % NaCl 1 250ml.bag @ 9. 585 UNITS/KG/HR 10 mls/hr IV .Q24H [facility] Rx#: [id number] Oral 540 Other: Voiding Method Toilet # Voids 1 - Labs CBC & Chem 7: 03/21/23 08:59 03/20/23 11:17 Labs: Abnormal Lab Results - Last 24 Hours (Table) 03/20/23 Range/Units 21:25 APTT 47.0 H (22.0-30.0) sec
--- NOTE | 2023-03-21 14:35 | P.DS ---
Providers Date of admission: 03/20/23 13:05 Expected date of discharge: 03/21/23 Attending physician: Shraddha Bran DO Consults: 03/20/23 11:25 Consult Physician Urgent Consulting Provider: John Ellis Consult Reason/Comments: afib rvr Do you want consulting provider notified?: Yes Primary care physician: Peter Oleary MD Hospital Course: Discharge Diagnosis: Atrial fibrillation with rapid ventricular response Hypothyroidism Hospital Course: Patient is a 37-year-old female with known history of atrial fibrillation status post cardioversion and ablation, hypothyroidism, and vitamin D deficiency who presented to the emergency department with complaints of palpitations. On arrival to the ER she was found to be in atrial fibrillation with rapid ventricular response and a heart rate of 144. Amatory analysis included CBC, coags, CMP, and troponin all of which were unremarkable. She was started on a Cardizem drip which was quickly escalated to 15 mg/h. Arrangements were made for admission. She was started on metoprolol 25 mg twice daily. She was monitored overnight and placed on a heparin drip. She was cardioverted back to normal sinus rhythm on the morning of 03/21. She will continue on Xarelto for the next 7 days. She was also noted to have a TSH of 0.938 and her Synthroid was adjusted. She was doing well and determined stable for discharge home. Follow-up: Dr. Barton on 03/27/2023. Primary care physician in 1 week. New medications include metoprolol 12.5 mg twice daily, Synthroid 37.5 mcg daily, and Xarelto 20 mg daily. She should have repeat TSH in 4 to 6 weeks. Patient seen and examined at bedside. Seen post cardioversion. Doing well. No complaints currently. Wanting to be discharged home. Vital signs reviewed and stable. General: Nontoxic, no distress, appears at stated age Cardiovascular: S1S2 reg, no murmur, positive posterior tibial pulse bilateral, Lungs: CTA bilateral, no rhonchi, no rales, no accessory muscle use Ext: No gross muscle atrophy, no edema b/l lower extremities, no contractures Neuro: CN II-XI grossly intact, no focal neuro deficits Psych: Alert, oriented, appropriate affect A total of 25 minutes of time were spent preparing this complex discharge summary. Patient was discharged on 03/21/23. This dictation was prepared using [email or web address] voice recognition software. Though every attempt is made to correct errors during dictation some may still exist. Patient Condition at Discharge: Fair Plan - Discharge Summary New Discharge Prescriptions: New Metoprolol Tartrate [Lopressor] 12.5 mg PO BID #180 tab Levothyroxine Sodium [Synthroid] 37.5 mcg PO DAILY@0630 #180 tab Rivaroxaban [Xarelto] 20 mg PO DAILY #90 tab Continue Multivitamins, Thera [Multivitamin (formulary)] 1 tab PO DAILY L.acidoph,Paracasei, B.lactis [Probiotic] 1 cap PO DAILY Semaglutide [Ozempic] 2 mg SQ WARE Cholecalciferol [Vitamin D3 (125 Mcg = 5000 Iu)] 125 mcg PO DAILY Albuterol Inhaler [Ventolin Hfa Inhaler] 1 - 2 puff INHALATION RT-Q6H PRN PRN Reason: Shortness Of Breath [place]-3 Fatty Acids [[place]-3] 1,000 mg PO DAILY Discontinued Levothyroxine Sodium [Synthroid] 50 mcg PO DAILY Discharge Medication List Multivitamins, Thera [Multivitamin (formulary)] 1 tab PO DAILY 08/03/19 [History] L.acidoph,Paracasei, B.lactis [Probiotic] 1 cap PO DAILY 07/26/21 [History] Albuterol Inhaler [Ventolin Hfa Inhaler] 1 - 2 puff INHALATION RT-Q6H PRN 03/20/23 [History] Cholecalciferol [Vitamin D3 (125 Mcg = 5000 Iu)] 125 mcg PO DAILY 03/20/23 [History] [place]-3 Fatty Acids [[place]-3] 1,000 mg PO DAILY 03/20/23 [History] Semaglutide [Ozempic] 2 mg SQ WARE 03/20/23 [History] Levothyroxine Sodium [Synthroid] 37.5 mcg PO DAILY@0630 #180 tab 03/21/23 [Rx] Metoprolol Tartrate [Lopressor] 12.5 mg PO BID #180 tab 03/21/23 [Rx] Rivaroxaban [Xarelto] 20 mg PO DAILY #90 tab 03/21/23 [Rx] Follow up Appointment(s)/Referral(s): Victorino Major MD [Family Provider] - 1 Week (Patient has upcoming appointment with Dr. Major 03/27/23 @0945) Peter Oleary MD [Primary Care Provider] - 1-2 days (Patient will call to make follow-up with Dr. Oleary) Patient Instructions/Handouts: Cardioversion (DC) Discharge Disposition: HOME SELF-CARE
== END 2023-03-21 11:34 | disposition home or self-care (01) | DRG 310 ==
LOC: EC 11:00 → 3SCARD 13:05
PROVIDERS: ADMIT Internal Medicine; ATTEND Internal Medicine
PROC: 5A2204Z Restoration of Cardiac Rhythm, Single (ICD-10-PCS; principal; 2023-03-21 07:00)
DX: I48.0 Paroxysmal atrial fibrillation (principal); I47.20 Ventricular tachycardia, unspecified; J45.909 Unspecified asthma, uncomplicated; E03.9 Hypothyroidism, unspecified; E87.6 Hypokalemia; F41.9 Anxiety disorder, unspecified; E55.9 Vitamin D deficiency, unspecified; I10 Essential (primary) hypertension; Z79.01 Long term (current) use of anticoagulants; Z79.890 Hormone replacement therapy; Z79.899 Other long term (current) drug therapy; Z82.49 Family history of ischemic heart disease and other diseases of the circulatory system; Z82.5 Family history of asthma and other chronic lower respiratory diseases
CPT/HCPCS: 36415; 80053; 83735; 84443; 84484; 85025; 85610; 85730; 92960; 93005; 96361; 96365; 96366; 96375; 99291

== ENCOUNTER → 2023-04-22 | Outpatient (CLI) | payer BC | END | disposition home or self-care (01) | LOC: LABWHC1 14:58 | PROVIDERS: ATTEND Internal Medicine Interventional Cardiology | DX: E03.9 Hypothyroidism, unspecified (principal) | CPT/HCPCS: 36415; 84443 ==

== ENCOUNTER 2023-05-06 12:07 | Inpatient (IN) | payer BC ==
[2023-05-06 12:39] LABS: Basophils % (A) 0 %; Eosinophils # (A) 0.1 k/uL (0-0.7); Eosinophils % (A) 2 %; HCT 40.8 % (34.0-46.0); HGB 13.6 gm/dL (11.4-16.0); Lymphocytes # (A) 2.5 k/uL (1.0-4.8); Lymphocytes % (A) 37 %; MCH 27.8 pg (25.0-35.0); MCHC 33.2 g/dL (31.0-37.0); MCV 83.9 fL (80.0-100.0); Mean Platelet Volume 9.5; Monocytes # (A) 0.3 k/uL (0-1.0); Monocytes % (A) 5 %; Neutrophils # (A) 3.7 k/uL (1.3-7.7); Neutrophils % (A) 53 %; Platelet Count 274 k/uL (150-450); RBC 4.87 m/uL (3.80-5.40); RDW 12.1 % (11.5-15.5); WBC 6.9 k/uL (3.8-10.6)
[2023-05-06 12:50] LABS: ALT 38 U/L (4-34); AST 37 U/L (14-36); African American GFR (CKD) >90 (>60 ml/min/1.73 sqM); Albumin 4.9 g/dL (3.5-5.0); Alkaline Phosphatase 52 U/L (38-126); Anion Gap 9 mmol/L; Blood Urea Nitrogen 13 mg/dL (7-17); Calcium 9.6 mg/dL (8.4-10.2); Carbon Dioxide 23 mmol/L (22-30); Chloride 108 mmol/L (98-107); Glucose 93 mg/dL (74-99); Non-African American GFR(CKD) >90 (>60 ml/min/1.73 sqM); Potassium 4.3 mmol/L (3.5-5.1); Sodium 140 mmol/L (137-145); Total Bilirubin 0.6 mg/dL (0.2-1.3); Total Protein 7.9 g/dL (6.3-8.2)
[2023-05-06 12:55] LABS: Partial Thromboplastin Time 29.6 sec (22.0-30.0); Prothrombin Time 10.7 sec (10.0-12.5)
[2023-05-06] MEDS: IBUTILIDE 1 MG in SODIUM CHLORIDE 0.9% 50 ML IVPB ONE (13:04)
[2023-05-06] MEDS: MAGNESIUM SULFATE-D5W PMX 1 GM in DEXTROSE/WATER 1 100ML.BAG IVPB SCH (13:26)
--- NOTE | 2023-05-06 14:53 | ED ---
Arrhythmia/Palpitations HPI - General Chief Complaint: Arrhythmia/Palpitations Stated Complaint: AFIB Time Seen by Provider: 05/06/23 12:08 Source: patient, RN notes reviewed Mode of arrival: ambulatory Limitations: no limitations - History of Present Illness Initial Comments: 37-year-old female presents emergency department chief complaint of palpitatio ns, A-fib. Patient has a history of atrial fibrillation. Patient was recently admitted and is scheduled for ablation. Patient is on anticoagulants. Patient has a protocol from Dr. Major regarding chemical cardioversion. Patient states she feels palpitations mild shortness of breath. - Related Data Home Medications Medication Instructions Recorded Confirmed Multivitamins, Thera [Multivitamin 1 tab PO DAILY 08/03/19 03/20/23 (formulary)] L.acidoph,Paracasei, B.lactis 1 cap PO DAILY 07/26/21 03/20/23 [Probiotic] Albuterol Inhaler [Ventolin Hfa 1 - 2 puff INHALATION RT-Q6H PRN 03/20/23 03/20/23 Inhaler] Cholecalciferol [Vitamin D3 (125 125 mcg PO DAILY 03/20/23 03/20/23 Mcg = 5000 Iu)] [place]-3 Fatty Acids [[place]-3] 1,000 mg PO DAILY 03/20/23 03/20/23 Semaglutide [Ozempic] 2 mg SQ WARE 03/20/23 03/20/23 Previous Rx's Medication Instructions Recorded Levothyroxine Sodium [Synthroid] 37.5 mcg PO DAILY@0630 #180 tab 03/21/23 Metoprolol Tartrate [Lopressor] 12.5 mg PO BID #180 tab 03/21/23 Rivaroxaban [Xarelto] 20 mg PO DAILY #90 tab 03/21/23 Allergies Allergy/AdvReac Type Severity Reaction Status Date / Time ciprofloxacin [From Cipro] Allergy Anaphylaxis Verified 05/06/23 12:14 ciprofloxacin HCl Allergy Anaphylaxis Verified 05/06/23 12:14 [From Cipro] Review of Systems ROS Statement: Those systems with pertinent positive or pertinent negative responses have been documented in the HPI. ROS Other: All systems not noted in ROS Statement are negative. Past Medical History Past Medical History: Atrial Fibrillation, Asthma, Thyroid Disorder History of Any Multi-Drug Resistant Organisms: None Reported Past Surgical History: Breast Surgery, Section, Tubal Ligation Additional Past Surgical History / Comment(s): reduction, uterine ablation 3 weeks age as of 08/21, Cardiac ablation (2021). Past Anesthesia/Blood Transfusion Reactions: No Reported Reaction Past Psychological History: No Psychological Hx Reported Smoking Status: Former smoker Past Alcohol Use History: Occasional Past Drug Use History: None Reported - Past Family History Father Family Medical History: AFIB, CVA/TIA, Hypertension Mother Family Medical History: AFIB, Cancer, COPD, Fibromyalgia General Exam Limitations: no limitations General appearance: alert, in no apparent distress Head exam: Present: atraumatic, normocephalic, normal inspection Neck exam: Present: normal inspection, full ROM. Absent: tenderness, meningismus, lymphadenopathy Respiratory exam: Present: normal lung sounds bilaterally. Absent: respiratory distress, wheezes, rales, rhonchi, stridor Cardiovascular Exam: Present: tachycardia, irregular rhythm, normal heart sounds. Absent: systolic murmur, diastolic murmur, rubs, gallop, clicks Course Vital Signs 05/06/23 05/06/23 05/06/23 12:10 13:05 14:28 Temperature 97.5 F L Pulse Rate 135 H 129 H 120 H Respiratory 18 18 18 Rate Blood Pressure 139/105 103/82 116/75 O2 Sat by Pulse 99 97 98 Oximetry EKG Findings - EKG Comments: EKG Findings:: EKG performed at 11: 54 A-fib with RVR rate of 131 QRS 82 QT/QTc 301/378 - EKG Results: EKG: interpreted by KYUNG Medical Decision Making - Medical Decision Making Was pt. sent in by a medical professional or institution (, PA, SIGN LANGUAGE INSTRUCTOR, urgent care, hospital, or fdc...) When possible be specific @ -No Did you speak to anyone other than the patient for history (EMS, parent, family, police, friend...)? What history was obtained from this source @ -No Did you review nursing and triage notes (agree or disagree)? Why? @ -I reviewed and agree with nursing and triage notes Were old charts reviewed (outside hosp., previous admission, EMS record, old EKG, old radiological studies, urgent care reports/EKG's, fdc records)? Report findings @ -Reviewed prior laboratory studies Differential Diagnosis (chest pain, altered mental status, abdominal pain women, abdominal pain men, vaginal bleeding, weakness, fever, dyspnea, syncope, headache, dizziness, GI bleed, back pain, seizure, CVA, palpatations, mental health, musculoskeletal)? @ -[Differential Chest Pain: Stable Angina, Unstable Angina, STEMI, NSTEMI Aortic Dissection, Pneumothorax, Musculoskeletal, Esophageal Spasm GERD, Cholecystitis, Pancreatitis, Zoster, this is not meant to be an all-inclusive list. EKG interpreted by me (3pts min.). @ -As above X-rays interpreted by me (1pt min.). @ -None done CT interpreted by me (1pt min.). @ -None done U/S interpreted by me (1pt. min.). @ -None done What testing was considered but not performed or refused? (CT, X-rays, U/S, labs)? Why? @ -None What meds were considered but not given or refused? Why? @ -None Did you discuss the management of the patient with other professionals (professionals i.e. , PA, SIGN LANGUAGE INSTRUCTOR, lab, RT, psych nurse, high school social studies teacher, inductor tester, teacher, correction officer city or county jail, protective services case worker)? Give summary @ -Dr. Major regarding patient's A-fib RVR and treatment status post Corvert and magnesium. Discussed case with Dr. Seth for admission Was smoking cessation discussed for >3mins.? @ -No Was critical care preformed (if so, how long)? @ -35 minutes Were there social determinants of health that impacted care today? How? (Homelessness, low income, unemployed, alcoholism, drug addiction, transportation, low edu. Level, literacy, decrease access to med. care, correction, rehab)? @ -No Was there de-escalation of care discussed even if they declined (Discuss DNR or withdrawal of care, Hospice)? DNR status @ -No What co-morbidities impacted this encounter? (DM, HTN, Smoking, COPD, CAD, Cancer, CVA, ARF, Chemo, Hep., AIDS, mental health diagnosis, sleep apnea, morbid obesity)? @ -A-fib Was patient admitted / discharged? Hospital course, mention meds given and route, prescriptions, significant lab abnormalities, going to OR and other pertinent info. @ -[Admitted patient is found to be in A-fib RVR patient did not have any improvement after ibutilide and magnesium. 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 @ -No Drug Therapy requiring intensive monitoring for toxicity (Heparin, Nitro, Insulin, Cardizem)? @ -No Were any procedures done? @ -No Diagnosis/symptom? @ -A-fib RVR Acute, or Chronic, or Acute on Chronic? @ -Acute Uncomplicated (without systemic symptoms) or Complicated (systemic symptoms)? @ -complicated Side effects of treatment? @ -No Exacerbation, Progression, or Severe Exacerbation? @ -No Poses a threat to life or bodily function? How? (Chest pain, USA, MS, pneumonia, PE, COPD, DKA, ARF, appy, cholecystitis, CVA, Diverticulitis, Homicidal, Suicidal, threat to staff... and all critical care pts) @ -[Yes dysrhythmic - Lab Data Result diagrams: 05/06/23 12:15 05/06/23 12:15 Lab Results 05/06/23 05/06/23 05/06/23 Range/Units 12:15 12:15 12:15 WBC 6.9 (3.8-10.6) k/uL RBC 4.87 (3.80-5.40) m/uL Hgb 13.6 (11.4-16.0) gm/dL Hct 40.8 (34.0-46.0) % MCV 83.9 (80.0-100.0) fL MCH 27.8 (25.0-35.0) pg MCHC 33.2 (31.0-37.0) g/dL RDW 12.1 (11.5-15.5) % Plt Count 274 (150-450) k/uL MPV 9.5 Neutrophils % 53 % Lymphocytes % 37 % Monocytes % 5 % Eosinophils % 2 % Basophils % 0 % Neutrophils # 3.7 (1.3-7.7) k/uL Lymphocytes # 2.5 (1.0-4.8) k/uL Monocytes # 0.3 (0-1.0) k/uL Eosinophils # 0.1 (0-0.7) k/uL Basophils # 0.0 (0-0.2) k/uL PT 10.7 (10.0-12.5) sec INR 1.0 (<1.2) APTT 29.6 (22.0-30.0) sec Sodium 140 (137-145) mmol/L Potassium 4.3 (3.5-5.1) mmol/L Chloride 108 H (98-107) mmol/L Carbon Dioxide 23 (22-30) mmol/L Anion Gap 9 mmol/L BUN 13 (7-17) mg/dL Creatinine 0.69 (0.52-1.04) mg/dL Est GFR (CKD-EPI)AfAm >90 (>60 ml/min/1.73 sqM) Est GFR (CKD-EPI)NonAf >90 (>60 ml/min/1.73 sqM) Glucose 93 (74-99) mg/dL Calcium 9.6 (8.4-10.2) mg/dL Magnesium 2.0 (1.6-2.3) mg/dL Total Bilirubin 0.6 (0.2-1.3) mg/dL AST 37 H (14-36) U/L ALT 38 H (4-34) U/L Alkaline Phosphatase 52 (38-126) U/L Troponin I (0.000-0.034) ng/mL Total Protein 7.9 (6.3-8.2) g/dL Albumin 4.9 (3.5-5.0) g/dL 05/06/23 Range/Units 12:15 WBC (3.8-10.6) k/uL RBC (3.80-5.40) m/uL Hgb (11.4-16.0) gm/dL Hct (34.0-46.0) % MCV (80.0-100.0) fL MCH (25.0-35.0) pg MCHC (31.0-37.0) g/dL RDW (11.5-15.5) % Plt Count (150-450) k/uL MPV Neutrophils % % Lymphocytes % % Monocytes % % Eosinophils % % Basophils % % Neutrophils # (1.3-7.7) k/uL Lymphocytes # (1.0-4.8) k/uL Monocytes # (0-1.0) k/uL Eosinophils # (0-0.7) k/uL Basophils # (0-0.2) k/uL PT (10.0-12.5) sec INR (<1.2) APTT (22.0-30.0) sec Sodium (137-145) mmol/L Potassium (3.5-5.1) mmol/L Chloride (98-107) mmol/L Carbon Dioxide (22-30) mmol/L Anion Gap mmol/L BUN (7-17) mg/dL Creatinine (0.52-1.04) mg/dL Est GFR (CKD-EPI)AfAm (>60 ml/min/1.73 sqM) Est GFR (CKD-EPI)NonAf (>60 ml/min/1.73 sqM) Glucose (74-99) mg/dL Calcium (8.4-10.2) mg/dL Magnesium (1.6-2.3) mg/dL Total Bilirubin (0.2-1.3) mg/dL AST (14-36) U/L ALT (4-34) U/L Alkaline Phosphatase (38-126) U/L Troponin I <0.012 (0.000-0.034) ng/mL Total Protein (6.3-8.2) g/dL Albumin (3.5-5.0) g/dL Critical Care Time Critical Care Time: Yes Total Critical Care Time: 35 Disposition Clinical Impression: Atrial fibrillation with RVR Disposition: ADMITTED IP TO THIS HOSP Condition: Fair Referrals: Peter Oleary MD [Primary Care Provider] - 1-2 days Time of Disposition: 15:49
[2023-05-06] MEDS: DILTIAZEM DRIP BOLUS FROM BAG 1 MG SOLN IV ONE (16:23)
[2023-05-06] MEDS: DILTIAZEM 125 MG in SODIUM CHLORIDE 0.9% 100 ML IV SCH (16:24)
--- NOTE | 2023-05-06 16:48 | P.HPIM ---
History of Present Illness H&P Date: 05/06/23 Patient is a 37-year-old female with history of paroxysmal atrial fibrillation, hypothyroidism presenting with palpitations. She is also having associated shortness of breath, but denies any chest pain, lightheadedness, abdominal pain, nausea, vomiting, urinary or bowel complaints. She was at work when she started experiencing palpitations. She has had atrial fibrillation for about 10 years, her last ablation was in 2019, cardioverted in 2021, and again last month. She was scheduled for ablation in July. Recently had her Synthroid decreased to 25 mcg. On metoprolol and Xarelto at home. Denies any smoking, alcohol use or illicit drug use. In the ED, temperature was 97.5, pulse 135, blood pressure 139/105, saturating at 99% on room air, respiratory rate 18. WBC 6.9, hemoglobin 13.6, potassium 4.3, creatinine 0.69, magnesium 2, mildly elevated AST and ALT, troponin negative. EKG shows atrial fibrillation with RVR. Patient was given ibutilide, which did not abort her atrial fibrillation with RVR. Patient being admitted for atrial fibrillation with RVR. Cardiology consulted. Pertinent positives and negatives as discussed in HPI, a complete review of systems was performed and all other systems are negative. Patient seen and examined at bedside. Vital signs reviewed General: nontoxic, no distress, appears at stated age Derm: warm, dry Head: atraumatic, normocephalic, symmetric Eyes: EOMI, no lid lag, anicteric sclera ENT: Nose and ears atraumatic Neck: No thyromegaly Mouth: no lip lesion, mucus membranes moist Cardiovascular: Irregular and tachycardic, no edema Lungs: no accessory muscle use Abdominal: Nondistended Ext: no gross muscle atrophy, muscle strength muscle strength 5 out of 5 in all 4 extremities, no contractures Neuro: CN II-XII grossly intact Psych: Alert, oriented, appropriate affect Assessment/Plan: Active: Atrial fibrillation with RVR Started on Cardizem drip Xarelto 20 daily, metoprolol 12.5 twice daily Continuous telemetry Cardiology consulted, likely cardioversion tomorrow Chronic: Hypothyroidism Asthma [id number] The patient is admitted with an anticipated greater than 2 midnight stay as inpatient status for evaluation of A-fib RVR. Surrogate decision-maker: Spouse CODE STATUS: Full code DVT prophylaxis: Xarelto Anticipated discharge date: Pending clinical course Anticipated discharge place: Pending clinical course A total of 55minutes was spent on the care of this complex patient more than 50% of the time was spent in counseling and care coordination. Past Medical History Past Medical History: Atrial Fibrillation, Asthma, Thyroid Disorder History of Any Multi-Drug Resistant Organisms: None Reported Past Surgical History: Breast Surgery, Section, Tubal Ligation Additional Past Surgical History / Comment(s): reduction, uterine ablation 3 weeks age as of 08/21, Cardiac ablation (2021). Past Anesthesia/Blood Transfusion Reactions: No Reported Reaction Past Psychological History: No Psychological Hx Reported Smoking Status: Former smoker Past Alcohol Use History: Occasional Past Drug Use History: None Reported - Past Family History Father Family Medical History: AFIB, CVA/TIA, Hypertension Mother Family Medical History: AFIB, Cancer, COPD, Fibromyalgia Medications and Allergies Home Medications Medication Instructions Recorded Confirmed Type Multivitamins, Thera [Multivitamin 1 tab PO DAILY 08/03/19 05/06/23 History (formulary)] L.acidoph,Paracasei, B.lactis 1 cap PO DAILY 07/26/21 05/06/23 History [Probiotic] Albuterol Inhaler [Ventolin Hfa 1 - 2 puff INHALATION RT-Q6H PRN 03/20/23 History Inhaler] Cholecalciferol [Vitamin D3 (125 125 mcg PO DAILY 03/20/23 05/06/23 History Mcg = 5000 Iu)] [place]-3 Fatty Acids [[place]-3] 1,000 mg PO DAILY 03/20/23 05/06/23 History Metoprolol Tartrate [Lopressor] 12.5 mg PO BID #180 tab 03/21/23 05/06/23 Rx Levothyroxine Sodium [Synthroid] 25 mcg PO DAILY 05/06/23 05/06/23 History Rivaroxaban [Xarelto] 20 mg PO HS 05/06/23 05/06/23 History Semaglutide [Wegovy] 1.7 mg SQ WARE 05/06/23 05/06/23 History Allergies Allergy/AdvReac Type Severity Reaction Status Date / Time ciprofloxacin [From Cipro] Allergy Anaphylaxis Verified 05/06/23 16:24 ciprofloxacin HCl Allergy Anaphylaxis Verified 02/27/24 16:24 [From Cipro] Physical Exam Vitals: Vital Signs Temp Pulse Resp BP Pulse Ox 05/06/23 16:22 124 H 16 119/86 98 05/06/23 14:28 120 H 18 116/75 98 05/06/23 13:05 129 H 18 103/82 97 05/06/23 12:10 97.5 F L 135 H 18 139/105 99 Intake and Output 05/06/23 05/06/23 05/06/23 06:59 14:59 22:59 Other: Weight 102.058 kg Results CBC & Chem 7: 05/06/23 12:15 05/06/23 12:15 Labs: Abnormal Lab Results - Last 24 Hours (Table) 05/06/23 Range/Units 12:15 Chloride 108 H (98-107) mmol/L AST 37 H (14-36) U/L ALT 38 H (4-34) U/L
[2023-05-06] MEDS: METOPROLOL TARTRATE 12.5 MG TAB PO SCH (17:07)
[2023-05-06] MEDS: RIVAROXABAN 20 MG TAB PO SCH (20:51)
[2023-05-07] MEDS: FLECAINIDE 50 MG TAB PO STA (06:44)
[2023-05-07] MEDS: LEVOTHYROXINE 25 MCG TAB PO SCH (06:45)
[2023-05-07 08:51] LABS: ALT 37 U/L (4-34); AST 28 U/L (14-36); African American GFR (CKD) >90 (>60 ml/min/1.73 sqM); Albumin 4.8 g/dL (3.5-5.0); Alkaline Phosphatase 57 U/L (38-126); Anion Gap 12 mmol/L; Blood Urea Nitrogen 16 mg/dL (7-17); Calcium 9.5 mg/dL (8.4-10.2); Carbon Dioxide 23 mmol/L (22-30); Chloride 108 mmol/L (98-107); Glucose 102 mg/dL (74-99); Magnesium 2.2 mg/dL (1.6-2.3); Non-African American GFR(CKD) >90 (>60 ml/min/1.73 sqM); Sodium 143 mmol/L (137-145); Total Bilirubin 0.6 mg/dL (0.2-1.3); Total Protein 7.7 g/dL (6.3-8.2)
[2023-05-07 09:21] VITALS: RESP 17
[2023-05-07] MEDS: CHOLECALCIFEROL 125 MCG (5000 IU) TABLET PO SCH (09:24)
[2023-05-07] MEDS: MULTIVITAMINS, THERA 1 EACH TAB PO SCH (09:25)
--- NOTE | 2023-05-07 10:52 | P.CRDCN ---
History of Present Illness Consult date: 05/07/23 Consult reason: atrial fibrillation (WITH RVR) History of present illness: History of present illness: This is a 37-year-old female patient of Dr. Major with past medical history of hypothyroidism, paroxysmal atrial fibrillation. We have been asked to evaluate the patient for atrial fibrillation with RVR. Patient presented to the emergency center due to palpitations, atrial fibrillation, shortness of breath. Patient is scheduled for ablation with Dr. Major on July 09. Patient was started on Cardizem bolus followed by drip, ibutilide fumarate 1 mg IV piggyback x 1, magnesium sulfate 1 g. Patient received one dose of Flecainide 150 mg. At the time of evaluation, patient converted to SR. Patient is inquiring whether she should have Flecainide at home to take as needed which will be addressed. EKG #1 atrial fibrillation with ventricular rate of 131 bpm, #2 atrial fibrillation with ventricular rate of 109 bpm. CBC INR electrolytes renal function unremarkable. AST 37, a LT 38, alkaline phosphatase 52. Troponin negative x 1. Magnesium 2.0. Home cardiac medications: Lopressor 12.5 mg twice daily, Xarelto 20 mg at bedtime, also on levothyroxine 25 mcg daily and Wegovy 1.7 mg subcu Sundays. Electrocardioversion 03/21/2023 successful following failed flecainide Electrocardioversion 09/07/2021 successful. Echocardiogram performed 08/22/2021 revealed EF of 55 to 60%. Atrial fibrillation ablation 08/05/2019. Review Of Systems: At the time of my exam: CONSTITUTIONAL: Denies fever or chills. HEENT: Denies blurred vision, vision changes, or eye pain. Denies hemoptysis CARDIOVASCULAR: Denies chest pain. Denies orthopnea. Denies PND. Denies palpitations RESPIRATORY: Denies shortness of breath. GASTROINTESTINAL: Denies abdominal pain. Denies nausea or vomiting. HEMATOLOGIC: Denies bleeding disorders. GENITOURINARY: Denies any blood in urine. SKIN: Denies pruitis. Denies rash. Physical examination: Gen: This is a 37-year-old female in no acute distress VS: reviewed HEENT: Head is atraumatic, normocephalic. Pupils equal, round. Sclerae is anicteric. NECK: Supple. No JVD. LUNGS: Clear to auscultation. No wheezes or rhonchi. No intercostal retractions. HEART: Irregular rate and rhythm. No murmur. ABDOMEN: Soft No tenderness. EXTREMITIES: No pedal edema. No calf tenderness. NEUROLOGICAL: Patient is awake, alert and oriented x3. Assessment: Palpitations Paroxysmal atrial fibrillation presenting with RVR History of previous cardioversions History of atrial fibrillation ablation Hypothyroidism History of intolerance to beta-case secondary to hypotension and bradycardia Plan: Continue patient's home cardiac medications Add flecainide 150 mg scheduled twice daily Patient is cleared for discharge from cardiology and may follow up with Dr. Major in 1-2 weeks. Thank you kindly for this consultation. Nurse practitioner note has been reviewed, I agree with documented findings and plan of care. Patient was seen and examined. Past Medical History Past Medical History: Atrial Fibrillation, Asthma, Thyroid Disorder History of Any Multi-Drug Resistant Organisms: None Reported Past Surgical History: Breast Surgery, Section, Tubal Ligation Additional Past Surgical History / Comment(s): reduction, uterine ablation 3 weeks age as of 08/21, Cardiac ablation (2019), Cardioverison 08/29 & 04/02 Past Anesthesia/Blood Transfusion Reactions: No Reported Reaction Past Psychological History: No Psychological Hx Reported Smoking Status: Former smoker Past Alcohol Use History: Occasional Past Drug Use History: None Reported - Past Family History Father Family Medical History: AFIB, CVA/TIA, Hypertension Mother Family Medical History: AFIB, Cancer, COPD, Fibromyalgia Medications and Allergies Home Medications Medication Instructions Recorded Confirmed Type Multivitamins, Thera [Multivitamin 1 tab PO DAILY 08/03/19 05/06/23 History (formulary)] L.acidoph,Paracasei, B.lactis 1 cap PO DAILY 07/26/21 05/06/23 History [Probiotic] Albuterol Inhaler [Ventolin Hfa 1 - 2 puff INHALATION RT-Q6H PRN 03/20/23 05/06/23 History Inhaler] Cholecalciferol [Vitamin D3 (125 125 mcg PO DAILY 03/20/23 05/06/23 History Mcg = 5000 Iu)] [place]-3 Fatty Acids [[place]-3] 1,000 mg PO DAILY 03/20/23 05/06/23 History Metoprolol Tartrate [Lopressor] 12.5 mg PO BID #180 tab 03/21/23 05/06/23 Rx Levothyroxine Sodium [Synthroid] 25 mcg PO DAILY 05/06/23 05/06/23 History Rivaroxaban [Xarelto] 20 mg PO HS 05/06/23 05/06/23 History Semaglutide [Wegovy] 1.7 mg SQ WARE 05/06/23 05/06/23 History Flecainide Acetate [Tambocor] 150 mg PO BID #60 tablet 05/07/23 Rx Allergies Allergy/AdvReac Type Severity Reaction Status Date / Time ciprofloxacin [From Cipro] Allergy Anaphylaxis Verified 05/06/23 16:24 ciprofloxacin HCl Allergy Anaphylaxis Verified 05/06/23 16:24 [facility] Physical Exam Vitals: Vital Signs Temp Pulse Pulse Resp BP BP Pulse Ox 05/07/23 04:00 97.8 F 76 16 115/75 98 05/07/23 02:00 87 16 05/07/23 00:00 98.0 F 87 16 107/75 95 05/06/23 20:00 97.9 F 111 H 16 104/68 97 05/06/23 17:00 98 F 106 H 16 113/79 99 05/06/23 16:22 124 H 16 119/86 98 05/06/23 14:28 120 H 18 116/75 98 05/06/23 13:05 129 H 18 103/82 97 05/06/23 12:10 97.5 F L 135 H 18 139/105 99 Intake and Output 05/06/23 05/07/23 05/07/23 22:59 06:59 14:59 Intake Total 240 110.5 Balance 240 110.5 Intake: Intake, IV Titration 110.5 Amount Diltiazem 125 mg In 110.5 Sodium Chloride 0.9% 100 ml @ 10 MG/HR 10 mls/hr IV .[id number] [facility] Rx#: [id number] Oral 240 Other: Voiding Method Toilet Toilet # Voids 1 1 Weight 102.058 kg Results 05/06/23 12:15 05/07/23 08:01 Cardiac Enzymes 05/06/23 05/06/23 Range/Units 12:15 12:15 AST 37 H (14-36) U/L Troponin I <0.012 (0.000-0.034) ng/mL Coagulation 02/27/24 Range/Units 12:15 PT 10.7 (10.0-12.5) sec APTT 29.6 (22.0-30.0) sec CBC 05/06/23 Range/Units 12:15 WBC 6.9 (3.8-10.6) k/uL RBC 4.87 (3.80-5.40) m/uL Hgb 13.6 (11.4-16.0) gm/dL Hct 40.8 (34.0-46.0) % Plt Count 274 (150-450) k/uL Comprehensive Metabolic Panel 05/06/23 Range/Units 12:15 Sodium 140 (137-145) mmol/L Potassium 4.3 (3.5-5.1) mmol/L Chloride 108 H (98-107) mmol/L Carbon Dioxide 23 (22-30) mmol/L BUN 13 (7-17) mg/dL Creatinine 0.69 (0.52-1.04) mg/dL Glucose 93 (74-99) mg/dL Calcium 9.6 (8.4-10.2) mg/dL AST 37 H (14-36) U/L ALT 38 H (4-34) U/L Alkaline Phosphatase 52 (38-126) U/L Total Protein 7.9 (6.3-8.2) g/dL Albumin 4.9 (3.5-5.0) g/dL Current Medications Generic Name Dose Route Start Last Admin Trade Name Freq PRN Reason Stop Dose Admin Cholecalciferol 125 mcg 05/07/23 09:00 Cholecalciferol 125 Mcg (5000 Iu) Tablet PO DAILY [facility] Diltiazem HCl 125 mg/ Sodium 125 mls @ 10 mls/hr 05/06/23 16:00 05/07/23 03:27 Chloride IV 10 mg/hr .[id number] TED 10 mls/hr Administration 10 MG/HR Levothyroxine Sodium 25 mcg 05/07/23 06:30 05/07/23 06:45 Levothyroxine 25 Mcg Tab PO 25 mcg 0630 TED Administration Metoprolol Tartrate 12.5 mg 05/06/23 18:00 05/06/23 17:07 Metoprolol Tartrate 12.5 Mg Tab PO 12.5 mg BID TED Administration Multivitamins 1 each 05/07/23 09:00 Multivitamins, Thera 1 Each Tab PO DAILY [facility] Rivaroxaban 20 mg 05/06/23 21:00 05/06/23 20:51 Rivaroxaban 20 Mg Tab PO 20 mg DAILY [facility] Administration Protocol Intake and Output 05/06/23 05/07/23 05/07/23 22:59 06:59 14:59 Intake Total 240 110.5 Balance 240 110.5 Intake: Intake, IV Titration 110.5 Amount Diltiazem 125 mg In 110.5 Sodium Chloride 0.9% 100 ml @ 10 MG/HR 10 mls/hr IV .[id number] [facility] Rx#: [id number] Oral 240 Other: Voiding Method Toilet Toilet # Voids 1 1 Weight 102.058 kg 05/06/23 12:15 05/06/23 12:15
--- NOTE | 2023-05-07 11:28 | P.DS ---
Providers Date of admission: 05/06/23 16:07 Expected date of discharge: 05/07/23 Attending physician: Phan Seth MD Consults: 05/06/23 15:50 Consult Physician Urgent Consulting Provider: Victroino Major Consult Reason/Comments: afib rvr Do you want consulting provider notified?: Already Contacted Primary care physician: Peter Oleary MD Hospital Course: Discharge Diagnosis: Atrial fibrillation with RVR Hypothyroidism Asthma, not in exacerbation Hospital Course: Patient is a 37-year-old female with history of paroxysmal atrial fibrillation, hypothyroidism presenting with palpitations. In the ED, temperature was 97.5, pulse 135, blood pressure 139/105, saturating at 99% on room air, respiratory rate 18. WBC 6.9, hemoglobin 13.6, potassium 4.3, creatinine 0.69, magnesium 2, mildly elevated AST and ALT, troponin negative. EKG shows atrial fibrillation with RVR. Patient was given ibutilide, which did not abort her atrial fibrillation with RVR. Patient being admitted for atrial fibrillation with RVR. Cardiology consulted. Patient converted back to normal sinus rhythm. Patient being discharged on current regimen, cardiology to add flecainide 150 twice nellie y, follow-up with cardiology outpatient. Patient seen and examined at bedside. Vital signs reviewed and stable. General: nontoxic, no distress, appears at stated age Derm: warm, dry Head: atraumatic, normocephalic, symmetric Eyes: EOMI, no lid lag, anicteric sclera ENT: Nose and ears atraumatic Neck: No thyromegaly Mouth: no lip lesion, mucus membranes moist Cardiovascular: Regular, no edema Lungs: no accessory muscle use Abdominal: Nondistended Ext: no gross muscle atrophy, muscle strength muscle strength 5 out of 5 in all 4 extremities, no contractures Neuro: CN II-XII grossly intact Psych: Alert, oriented, appropriate affect A total of 33 minutes of time were spent preparing this complex discharge summary. Patient was discharged on 05/07/2023 at 1058. Patient Condition at Discharge: Stable Plan - Discharge Summary Discharge Rx Participant: Yes New Discharge Prescriptions: New Flecainide Acetate [Tambocor] 150 mg PO BID #60 tablet Continue Multivitamins, Thera [Multivitamin (formulary)] 1 tab PO DAILY L.acidoph,Paracasei, B.lactis [Probiotic] 1 cap PO DAILY Cholecalciferol [Vitamin D3 (125 Mcg = 5000 Iu)] 125 mcg PO DAILY Metoprolol Tartrate [Lopressor] 12.5 mg PO BID #180 tab Rivaroxaban [Xarelto] 20 mg PO HS Levothyroxine Sodium [Synthroid] 25 mcg PO DAILY Albuterol Inhaler [Ventolin Hfa Inhaler] 1 - 2 puff INHALATION RT-Q6H PRN PRN Reason: Shortness Of Breath [place]-3 Fatty Acids [[place]-3] 1,000 mg PO DAILY Semaglutide [Wegovy] 1.7 mg SQ WARE Discharge Medication List Multivitamins, Thera [Multivitamin (formulary)] 1 tab PO DAILY 08/03/19 [History] L.acidoph,Paracasei, B.lactis [Probiotic] 1 cap PO DAILY 07/26/21 [History] Albuterol Inhaler [Ventolin Hfa Inhaler] 1 - 2 puff INHALATION RT-Q6H PRN 03/20/23 [History] Cholecalciferol [Vitamin D3 (125 Mcg = 5000 Iu)] 125 mcg PO DAILY 03/20/23 [History] [place]-3 Fatty Acids [[place]-3] 1,000 mg PO DAILY 03/20/23 [History] Metoprolol Tartrate [Lopressor] 12.5 mg PO BID #180 tab 03/21/23 [Rx] Levothyroxine Sodium [Synthroid] 25 mcg PO DAILY 05/06/23 [History] Rivaroxaban [Xarelto] 20 mg PO HS 05/06/23 [History] Semaglutide [Wegovy] 1.7 mg SQ WARE 05/06/23 [History] Flecainide Acetate [Tambocor] 150 mg PO BID #60 tablet 05/07/23 [Rx] Follow up Appointment(s)/Referral(s): Victorino Major MD [STAFF PHYSICIAN] - 1 Week (May 13, 9:45) Peter Oleary MD [Primary Care Provider] - 1-2 days Patient Instructions/Handouts: A-fib (Atrial Fibrillation) (DC) Activity/Diet/Wound Care/Special Instructions: 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 Discharge Disposition: HOME SELF-CARE
[2023-05-07 11:35] VITALS: BP 95/67; PULSE 78; TEMP 98.2
[2023-05-07] MEDS ORDERED: RIVAROXABAN 20 MG TAB PO SCH (20:00)
== END 2023-05-07 11:40 | disposition home or self-care, planned readmission (81) | DRG 310 ==
LOC: EC 12:07 → 3SCARD 16:07
PROVIDERS: ADMIT Student in an Organized Health Care Education/Training Program; ATTEND Student in an Organized Health Care Education/Training Program
DX: I48.0 Paroxysmal atrial fibrillation (principal); E03.9 Hypothyroidism, unspecified; J45.909 Unspecified asthma, uncomplicated; Z79.01 Long term (current) use of anticoagulants; Z79.890 Hormone replacement therapy; Z79.899 Other long term (current) drug therapy; Z79.85 Long-term (current) use of injectable non-insulin antidiabetic drugs; Z87.891 Personal history of nicotine dependence; Z88.1 Allergy status to other antibiotic agents; Z82.49 Family history of ischemic heart disease and other diseases of the circulatory system
CPT/HCPCS: 36415; 80053; 83735; 84484; 85025; 85610; 85730; 96365; 96366; 96367; 96375; 99291

== ENCOUNTER → 2023-07-03 | Outpatient (CLI) | payer BC ==
[2023-07-03 15:34] LABS: HCT 40.4 % (37.2-46.3); HGB 13.4 g/dL (12.0-15.0); MCH 28.5 pg (27.0-32.0); MCHC 33.2 g/dL (32.0-37.0); MCV 85.8 FL (80.0-97.0); Mean Platelet Volume 12.1 FL (9.5-12.2); NRBC Per 100 WBC 0 X 10*3/uL (0.00-0.01); Platelet Count 268 X 10*3/uL (140-440); RBC 4.71 X 10*6/uL (4.10-5.20); RDW 11.9 % (11.5-14.5); WBC 5.39 X 10*3/uL (4.50-10.00)
[2023-07-03 16:13] LABS: Blood Urea Nitrogen 13.2 mg/dL (9.0-27.0); Carbon Dioxide 24.8 mmol/L (21.6-31.8); Chloride 105 mmol/L (96-109); Potassium 4.5 mmol/L (3.5-5.5); Sodium 140 mmol/L (135-145)
== END | disposition home or self-care (01) ==
LOC: LABPAT 09:36
PROVIDERS: ATTEND Internal Medicine Clinical Cardiac Electrophysiology
DX: Z01.812 Encounter for preprocedural laboratory examination (principal); I48.0 Paroxysmal atrial fibrillation; I49.5 Sick sinus syndrome
CPT/HCPCS: 80051; 82565; 84520; 85027

== ENCOUNTER → 2023-07-03 | Outpatient (CLI) | payer BC | END | disposition home or self-care (01) | LOC: LABWHC1 09:38 | PROVIDERS: ATTEND Nurse Practitioner Adult Health | DX: I48.0 Paroxysmal atrial fibrillation (principal) | CPT/HCPCS: 36415; 84443 ==

== ENCOUNTER 2023-07-10 08:35 | Day surgery (SDC) | payer BC ==
[2023-07-08 15:32] VITALS: BMI 34.9
[~2023-07-10 08:35] MED LIST changes: -Acetaminophen-Codeine 300-30mg TAB PO PRN; -DEXAMETHASONE SOD PHOSPHATE 4 MG/ML 1 ML VIAL IV ONE; -IBUPROFEN 600 MG TAB PO PRN; -KETOROLAC 15 MG/ML 1 ML VIAL IVP PRN; -KETOROLAC 15 MG/ML 1 ML VIAL ONE; -LACTATED RINGERS 1,000 ML IV ONE; -LACTATED RINGERS 1,000 ML IV SCH; -LIDOCAINE 1% (10MG/ML) FOR IV START INTRADERMA PRN; -LIDOCAINE 2% INJ 20 MG/ML (2 ML VIAL) ONE; -METOCLOPRAMIDE 5 MG/ML 2 ML VIAL IVP PRN; -MIDAZOLAM 2 MG/2 ML VIAL ONE; -ONDANSETRON 4 MG/2 ML VIAL IVP ONE; -ONDANSETRON 4 MG/2 ML VIAL IVP PRN; -PROPOFOL 10 MG/ML 20 ML VIAL IV ONE; -Pre Op ABX Message 1 EACH MISC MISCELLANE ONE; -SCOPOLAMINE 1 MG/72 HR PATCH TRANSDERM ONE; -SIMETHICONE 80 MG CHEWABLE PO PRN; -diphenhydrAMINE 50 MG/ML 1 ML VIAL IVP PRN; -fentaNYL (PF) 50 MCG/ML 2 ML AMP ONE
[2023-07-10] MEDS: SODIUM CHLORIDE 0.9% 1,000 ML IV ONE (09:23)
[2023-07-10 09:33] LABS: Glucose,Whole Blood 86 mg/dL (70-110)
[2023-07-10] MEDS: SODIUM CHLORIDE 0.9% 1,000 ML IV SCH ×2 (10:10→20:21)
[2023-07-10] MEDS: MIDAZOLAM 2 MG/2 ML VIAL IV PRN (10:10)
[2023-07-10] MEDS: LACTATED RINGERS 1,000 ML IV SCH (10:11)
[2023-07-10] MEDS ORDERED: PHENYLEPHRINE-0.9% NACL SYG 1,000 MCG/10 ML SYRINGE ONE (11:08)
[2023-07-10] MEDS ORDERED: HEPARIN SODIUM,PORCINE 10,000 UNIT/ML 1 ML VIAL ONE (11:08)
[2023-07-10] MEDS ORDERED: MIDAZOLAM 2 MG/2 ML VIAL ONE (11:08)
[2023-07-10] MEDS ORDERED: SUCCINYLCHOLINE CHLORIDE 200 MG/10 ML VIAL IV ONE (11:08)
[2023-07-10] MEDS ORDERED: PROPOFOL 10 MG/ML 20 ML VIAL IV ONE (11:08)
[2023-07-10] MEDS ORDERED: fentaNYL (PF) 50 MCG/ML 2 ML AMP ONE (11:08)
[2023-07-10] MEDS ORDERED: LIDOCAINE 1% INJ 10MG/ML (20 ML MDV) ONE (11:37)
[2023-07-10] MEDS: LIDOCAINE 1% INJ 10MG/ML (20 ML MDV) SQ ONE (11:52)
[2023-07-10] MEDS: HEPARIN SODIUM (1,000 UNIT/ML) 1,000 UNIT in SODIUM CHLORIDE 0.9% 1,000 ML IRRIGATION ONE (13:00)
[2023-07-10] MEDS: IOPAMIDOL-370 100ML BTL INJ ONE (13:44)
[2023-07-10] MEDS: HEPARIN SOD,PORK IN 0.45% NACL 25,000 UNIT in 0.45% NACL 1 250ML.BAG IV ONE (14:44)
[2023-07-10] MEDS ORDERED: ACETAMINOPHEN TAB 325 MG TAB PO PRN (16:12)
--- NOTE | 2023-07-10 16:20 | P.HPCAR ---
History of Present Illness This is Dr. Major dictating an H/P on this patient The patient was interviewed and examined IMPRESSION / ASSESSMENT: Paroxysmal atrial fibrillation with RVR, very symptomatic Frequent breakthrough episodes requiring electrical cardioversion antiarrhythmic drug therapy Yet the patient continues to have these episodes Increased BMI PLAN: A-fib ablation Continue Xarelto for 3 months Stop fish oil HPI Patient continues to have recurrent episodes of A-fib with RVR. She has undergone several cardioversions and has been treated with flecainide and Multaq with failure She even failed chemical cardioversion with ibutilide ROS: No fever chills or rigors, no cough, phlegm or expectoration, no nausea, vomiting or diarrhea, no hematuria, dysuria, no musculoskeletal complaints, no strokes or seizures, no skin lesions. EXAMINATION: Pulse rate 90 afebrile Blood pressure 125/80 mmHg Breath sounds are clear no rhonchi no crackles Heart sounds S1-S2 normal no murmurs No lower extremity edema REVIEW OF LABS, ECG & MEDICAL DATA Glucose 86 She stopped flecainide and metoprolol for 3 days prior Continued Xarelto Physical Exam Vitals: Vital Signs Temp Pulse Pulse Resp BP BP Pulse Ox 07/10/23 16:00 95 16 125/80 96 07/10/23 15:45 93 16 125/80 99 07/10/23 15:29 91 16 125/81 100 07/10/23 15:14 97 F L 92 14 129/85 99 07/10/23 09:31 97.7 F 73 16 111/71 98 Intake and Output 07/10/23 07/10/23 07/10/23 06:59 14:59 22:59 Intake Total 974 0 Balance 974 0 Intake: IV 974 0 Other: Weight 105 kg Past Medical History Past Medical History: Atrial Fibrillation, Asthma, Thyroid Disorder History of Any Multi-Drug Resistant Organisms: None Reported Past Surgical History: Breast Surgery, Cardiac Ablation, Section, Tubal Ligation Additional Past Surgical History / Comment(s): BREAST reduction, , Cardiac ablat ion (2019), Cardioverison 08/29 & 04/02 Past Anesthesia/Blood Transfusion Reactions: No Reported Reaction Smoking Status: Former smoker - Past Family History Father Family Medical History: AFIB, CVA/TIA, Hypertension Mother Family Medical History: AFIB, Cancer, COPD, Fibromyalgia Physical Examination Vital Signs Temp Pulse Pulse Resp BP BP Pulse Ox 07/10/23 16:00 95 16 125/80 96 07/10/23 15:45 93 16 125/80 99 07/10/23 15:29 91 16 125/81 100 07/10/23 15:14 97 F L 92 14 129/85 99 07/10/23 09:31 97.7 F 73 16 111/71 98 Intake and Output 07/10/23 07/10/23 07/10/23 06:59 14:59 22:59 Intake Total 974 0 Balance 974 0 Intake: IV 974 0 Other: Weight 105 kg Results Current Medications Generic Name Dose Route Start Last Admin Trade Name Freq PRN Reason Stop Dose Admin Acetaminophen 650 mg 07/10/23 16:12 Acetaminophen Tab 325 Mg Tab PO Q6HR PRN Mild Pain (Scale 1 to 3) Hydromorphone HCl 0.5 mg 07/10/23 07:00 Hydromorphone 0.5 Mg/0.5 Ml Syringe IVP 07/10/23 23:00 Q5M PRN Phase 1 or 2 - Pain Control Sodium Chloride 1,000 mls @ 50 mls/hr 07/10/23 05:56 07/10/23 10:10 Saline 0.9% IV 08/09/23 05:57 50 mls/hr .Q20H TED Administration Lactated Ringer's 1,000 mls @ 20 mls/hr 07/10/23 05:56 07/10/23 10:11 Lactated Ringers IV 08/09/23 05:57 Not Given .Q24H TED Acetaminophen 1,000 mg/ IV 100 mls @ 400 mls/hr 07/10/23 16:12 Solution IVPB 07/10/23 16:26 ONCE ONE Levothyroxine Sodium 25 mcg 07/11/23 06:30 Levothyroxine 25 Mcg Tab PO 0630 TED Metoprolol Tartrate 25 mg 07/10/23 21:00 Metoprolol Tartrate 25 Mg Tab PO BID TED Non-Formulary Medication 2.4 mg 07/13/23 09:00 Semaglutide [Wegovy] SQ WARE TED Rivaroxaban 20 mg 07/10/23 21:00 Rivaroxaban 20 Mg Tab PO HS TED Protocol Sodium Chloride 12 ml 07/10/23 16:12 Sodium Chloride 0.9% Flush 10 Ml Syringe IV Q12HR PRN Line Flush Intake and Output 07/10/23 07/10/23 07/10/23 06:59 14:59 22:59 Intake Total 974 0 Balance 974 0 Intake: IV 974 0 Other: Weight 105 kg Patient Weight 07/11/23 06:59 Weight 105 kg
--- NOTE | 2023-07-10 16:24 | P.EPPROC ---
- EP Procedure Note Electrophysiology Procedure Note: PROCEDURE A. fib ablation with redo PVI, left atrial septal ablation and left atrial roof ablation DIAGNOSIS Atrial fibrillation, symptomatic, refractory to therapy RESULT No left atrial appendage mass seen on intracardiac echo Successful A. fib ablation/pulmonary vein isolation of all veins using cryo- ablation Complete entrance block in all 4 veins confirmed Left atrial septal ablation Left atrial roof ablation No evidence for phrenic nerve injury Esophageal deflection no PROCEDURE DETAILS Written informed consent prior to procedure. Patient brought to the EP lab. General anesthesia given. Heparin administered. A city maintained above 300 seconds Both groins prepped and draped per protocol and venous sheaths placed. Esophagus intubated, circa catheter for temperature monitoring an endoscope for possible esophageal deflection. Phrenic nerve monitoring performed. Esophageal temperature monitoring performed. Esophageal deflection performed if circa catheter overlapping with the balloon or circa temperature less than 27.5C Intracardiac echocardiography performed. Pericardium evaluated. Left atrial appendage evaluated. Left atrium evaluated along with pulmonary veins Transseptal catheterization performed under fluoroscopic guidance and intracardiac echo guidance Cryoablation sheath exchanged, balloon catheter along with achieve catheter placed in the left atrium. Pulmonary veins isolated in the following sequence: Left superior pulmonary vein followed by left inferior pulmonary vein, followed by right inferior pulmonary vein and lastly right superior pulmonary vein. Phrenic nerve stimulation along with capture thresholds within the SVC and right superior pulmonary vein to identify the phrenic nerve proximity to the cryo- balloon. Pulmonary veins isolated and confirmed with entrance and exit block. Phrenic nerve integrity confirmed at the end of the procedure Ablation of the left atrial roof performed with sequential lesions from the left superior to the right superior pulmonary veins. Ablation of the electrograms confirmed Ablation of the left atrial septum performed with cannulation of the superior branch of the right inferior to achieve ablation of the posterior septum of the left atrium. Ablation of electrograms confirmed Voltage map revealed complete quiescence of all pulmonary veins up to the antrum, their derek, Diagnostic catheters for the high right atrium, His bundle, coronary sinus placed. LA and RA pressures recorded RA pressure: LA pressure: Diagnostic EP study with coronary sinus pacing and recording Baseline measurements: Sinus cycle length 790 ms, MO interval 151 ms, QRS 95 ms and QT 376 ms AH 84 ms and HV interval 45 ms High-dose Isopril was used Burst stimulation from the coronary sinus no atrial fibrillation induced Burst stimulation from the left atrial anterior wall from 400 ms down to 200 ms. No atrial fibrillation induced Isopril discontinued Extrastimulation from the high right atrium up to triple extrastimuli. No atrial fibrillation induced VA Wenckebach block 340 ms Venous sheaths were removed and hemostasis assured with a closure device. Patient extubated and transferred to recovery PROCEDURES PERFORMED Diagnostic EP study CS pacing and recording Left and right transseptal catheterization Catheter the mapping of the tachycardia Intracardiac echocardiography Pulmonary vein isolation with transseptal and comprehensive EPS, [id number] Drug infusion, +[id number] Left atrial roof line, +[id number] Linear ablation, left atrium, +[id number]
[2023-07-10] MEDS: ACETAMINOPHEN IV (For NPO) 1,000 MG in EMPTY BAG 1 BAG IVPB ONE (17:16)
[2023-07-10] MEDS: ONDANSETRON 4 MG/2 ML VIAL IVP PRN (20:11)
[2023-07-10] MEDS: METOPROLOL TARTRATE 25 MG TAB PO SCH (20:20)
[2023-07-10] MEDS: RIVAROXABAN 20 MG TAB PO SCH (20:20)
[2023-07-11] MEDS: LEVOTHYROXINE 25 MCG TAB PO SCH (05:52)
--- NOTE | 2023-07-11 08:20 | P.DS ---
Providers Attending physician: Victorino Major Primary care physician: Peter Oleary MD Hospital Course: Patient was admitted with recurrent episodes of paroxysmal atrial fibrillation, very symptomatic On several occasions she has required electrical cardioversion She has failed multiple antiarrhythmic drugs She has had a pulmonary vein isolation performed successfully several years back She was brought in for an A-fib ablation Antral level PVI performed Left atrial septal ablation performed Left atrial roof ablation performed Quiescence of all these ablative lesions was confirmed with voltage mapping Thereafter high-dose Isopril was used and atrial burst stimulation from multiple sites as well as atrium extrastimulation up to triple extrastimuli performed both on and off Isopril No inducible atrial fibrillation On examination Normal heart sounds no murmurs no gallop no rub Normal breath sounds no rhonchi no crackles No JVD Normal blood pressure normal heart rates 20 EKG sinus mechanism normal ST segments Telemetry no atrial fibrillation noted Impression Refractory atrial fibrillation, paroxysmal, failed prior treatments repeatedly Status post AF ablation as described above Increased BMI Left atrial enlargement on intracardiac echo Mild hypothyroidism currently on levothyroxine, TSH 1.0 Plan Anticoagulation for 3 months Stop fish oil Stop flecainide Continue metoprolol for now Continue weight loss program Plan - Discharge Summary Discharge Rx Participant: Yes New Discharge Prescriptions: Discontinued Flecainide Acetate [Tambocor] 100 mg PO BID RX: [place]-3 Fatty Acids [[place]-3] 1,000 mg PO DAILY No Action RX: Multivitamins, Thera [Multivitamin (formulary)] 1 tab PO DAILY RX: L.acidoph,Paracasei, B.lactis [Probiotic] 1 cap PO DAILY RX: Cholecalciferol [Vitamin D3 (125 Mcg = 5000 Iu)] 125 mcg PO DAILY RX: Rivaroxaban [Xarelto] 20 mg PO HS RX: Levothyroxine Sodium [Synthroid] 25 mcg PO DAILY RX: Albuterol Inhaler [Ventolin Hfa Inhaler] 1 - 2 puff INHALATION RT-Q6H PRN PRN Reason: Shortness Of Breath Semaglutide [Wegovy] 2.4 mg SQ WARE RX: Metoprolol Tartrate [Lopressor] 25 mg PO BID Discharge Medication List RX: Multivitamins, Thera [Multivitamin (formulary)] 1 tab PO DAILY 08/03/19 [History] RX: L.acidoph,Paracasei, B.lactis [Probiotic] 1 cap PO DAILY 07/26/21 [History] RX: Albuterol Inhaler [Ventolin Hfa Inhaler] 1 - 2 puff INHALATION RT-Q6H PRN 03/20/23 [History] RX: Cholecalciferol [Vitamin D3 (125 Mcg = 5000 Iu)] 125 mcg PO DAILY 03/20/23 [History] RX: Levothyroxine Sodium [Synthroid] 25 mcg PO DAILY 05/06/23 [History] RX: Rivaroxaban [Xarelto] 20 mg PO HS 05/06/23 [History] RX: Metoprolol Tartrate [Lopressor] 25 mg PO BID 07/08/23 [History] Semaglutide [Wegovy] 2.4 mg SQ WARE 07/08/23 [History] Follow up Appointment(s)/Referral(s): Victorino Major MD [STAFF PHYSICIAN] - 1 Week Activity/Diet/Wound Care/Special Instructions: Post EP study - Ablation instructions 1. Keep access sites dry for 2 days. 2. No heavy lifting or straining for 2 days. 3. Avoid bending the hips repeatedly for 2 days. 4. You may go up and down stairs slowly Call if the following is noted 1. Bleeding, increasing swelling or pain at the access sites. 2. Increasing chest discomfort, especially upon taking a deep breath. 3. Increasing shortness of breath, at rest or with exertion. 4. Undue cough / phlegm 5. Difficulty or pain while swallowing. 6. Pain or change in color in the extremities. 7. Fever, chills, rigors. 8. Increasing headache or neurologic symptoms. 9. Dizziness, fainting, palpitations Stop flecainide Stop fish oil since it increases risk of bleeding and atrial fibrillation Continue rivaroxaban for 3 months then stop
[2023-07-11 08:58] VITALS: BP 97/64; PULSE 89; RESP 16; TEMP 98.7
[2023-07-13] MEDS ORDERED: NON FORMULARY DRUG (Semaglutide [Wegovy] 2.4 MG/0.75 ML Each) SQ SCH (09:00)
== END 2023-07-11 11:47 | disposition home or self-care (01) ==
LOC: CATHEP 08:35 → 6NMEDSUR 14:49 → CATHEP 07-11 11:47
PROVIDERS: ATTEND Internal Medicine Clinical Cardiac Electrophysiology
DX: I48.91 Unspecified atrial fibrillation (principal); E03.9 Hypothyroidism, unspecified; I48.0 Paroxysmal atrial fibrillation; I51.7 Cardiomegaly; Z79.01 Long term (current) use of anticoagulants; Z79.890 Hormone replacement therapy; Z87.891 Personal history of nicotine dependence
CPT/HCPCS: 93623; 93656; 93657; 86900; 86901; 86850; C1759; C1894 ×2; C1769 ×3; C1760 ×2; C1730 ×2; C1731; C1893; C1733; C1766; C1732; J2250; J2405; J2001; J1644 ×2; Q9967

== ENCOUNTER → 2024-02-23 | Outpatient (CLI) | payer BC ==
--- NOTE | 2024-02-23 14:13 | MM ---
Reason for Exam: Screening (asymptomatic). Last mammogram was performed 1 year(s) and 1 month(s) ago. Patient History: Menarche at age 11. First Full-Term at age 27. Patient has history of breast feeding. Patient used Hormonal Contraceptives for 2 years. 2002, Bilateral Reduction. Maternal grandmother had breast cancer, age 52. Mother had breast cancer, age 42. Risk Values: Melissa 5 year model risk: 1.0%. NCI Lifetime model risk: 18.9%. Prior Study Comparison: 12/06/2020 Bilateral Screening Mammogram, [facility]. 01/25/2022 Bilateral MG 3D screening mammo w/cad, [facility]. 01/27/2023 Bilateral MG 3D screening mammo w/cad, [facility]. Tissue Density: There are scattered areas of fibroglandular density. Findings: Analyzed By CAD. There is no suspicious group of microcalcifications or new suspicious mass in either breast. Overall Assessment: Negative, BI-RAD 1 Management: Screening Mammogram of both breasts in 1 year. . Patient should continue monthly self-breast exams. A clinical breast exam by your physician is recommended on an annual basis. This exam should not preclude additional follow-up of suspicious palpable abnormalities. Note on Melissa scores and lifetime risk: 1. A Melissa score greater than 3% is considered moderate risk. If this is the case, consider specialist referral to assess eligibility for a risk reducing agent. 2. If overall lifetime risk for the development of breast cancer is 20% or higher, the patient may qualify for future screening with alternating mammogram and breast MRI. [facility], , 02/23/2024 2:11 PM. Electronically signed and approved by: Lv Hernandez M.D. Radiologis
== END | disposition home or self-care (01) ==
LOC: RADMAMWWP 10:47
PROVIDERS: ATTEND Obstetrics & Gynecology
DX: Z12.31 Encounter for screening mammogram for malignant neoplasm of breast (principal); Z80.3 Family history of malignant neoplasm of breast; R92.323 Mammographic fibroglandular density, bilateral breasts
CPT/HCPCS: 77063; 77067

== ENCOUNTER → 2024-04-08 | Outpatient (CLI) | payer BC ==
[2024-04-08 10:52] LABS: Basophils # (A) 0.04 X 10*3/uL (0.00-0.10); Basophils % (A) 0.5 %; Eosinophils # (A) 0.27 X 10*3/uL (0.04-0.35); Eosinophils % (A) 3.1 %; Lymphocytes # (A) 2.67 X 10*3/uL (0.90-5.00); Lymphocytes % (A) 30.5 %; MCH 27.9 pg (27.0-32.0); MCHC 34.1 g/dL (32.0-37.0); MCV 81.8 FL (80.0-97.0); Mean Platelet Volume 11.9 FL (9.5-12.2); Monocytes # (A) 0.62 X 10*3/uL (0.20-1.00); Monocytes % (A) 7.1 %; NRBC Per 100 WBC 0 X 10*3/uL (0.00-0.01); Neutrophils # (A) 5.12 X 10*3/uL (1.80-7.70); Neutrophils % (A) 58.6 %; Platelet Count 276 X 10*3/uL (140-440); RBC 5.01 X 10*6/uL (4.10-5.20); RDW 11.9 % (11.5-14.5); WBC 8.74 X 10*3/uL (4.50-10.00)
[2024-04-08 11:14] LABS: ALT 32 U/L (8-44); AST 23 U/L (13-35); Albumin 4.6 g/dL (3.8-4.9); Alkaline Phosphatase 59 U/L (41-126); BUN/Creat Ratio 24.38 Ratio (12.00-20.00); Blood Urea Nitrogen 19.5 mg/dL (9.0-27.0); Calcium 9.5 mg/dL (8.7-10.3); Carbon Dioxide 23.6 mmol/L (21.6-31.8); Chloride 106 mmol/L (96-109); Chol/HDL Ratio 2.78 Ratio; Globulin 2.7 g/dL (1.6-3.3); Glucose 98 mg/dL (70-110); LDL Cholesterol,Calculated 57.9 mg/dL (0.0-131.0); Potassium 4.4 mmol/L (3.5-5.5); Sodium 140 mmol/L (135-145); Total Bilirubin 0.3 mg/dL (0.3-1.2); Total Protein 7.3 g/dL (6.2-8.2); VLDL Calculation 19.02 mg/dL (5.00-40.00)
== END | disposition home or self-care (01) ==
LOC: LABWHC1 07:39
PROVIDERS: ATTEND Family Medicine
DX: E03.9 Hypothyroidism, unspecified (principal); E66.9 Obesity, unspecified; Z68.35 Body mass index [BMI] 35.0-35.9, adult
CPT/HCPCS: 36415; 80053; 80061; 82306; 83036; 84443; 85025

== ENCOUNTER → 2024-09-29 | Outpatient (CLI) | payer BC ==
[2024-09-29 18:07] LABS: ALT 27 U/L (8-44); AST 23 U/L (13-35); Albumin 4.5 g/dL (3.8-4.9); Albumin/Globulin Ratio 1.88 Ratio (1.60-3.17); Alkaline Phosphatase 53 U/L (41-126); Anion Gap 12.80 mmol/L (4.00-12.00); BUN/Creat Ratio 23.62 Ratio (12.00-20.00); Blood Urea Nitrogen 18.9 mg/dL (9.0-27.0); Calcium 9.7 mg/dL (8.7-10.3); Carbon Dioxide 23.2 mmol/L (21.6-31.8); Chloride 104 mmol/L (96-109); Globulin 2.4 g/dL (1.6-3.3); Glucose 88 mg/dL (70-110); Potassium 4.2 mmol/L (3.5-5.5); Sodium 140 mmol/L (135-145); Total Protein 6.9 g/dL (6.2-8.2)
[2024-09-29 21:11] LABS: Gliadin AB IgA, Deaminated Negative (Negative); Gliadin AB IgA, Unit 4.0 U/mL; Gliadin AB IgG, Deaminated Negative (Negative); Gliadin AB IgG, Unit 6.4 U/mL
== END | disposition home or self-care (01) ==
LOC: LABMAIN 12:39
PROVIDERS: ATTEND Family Medicine
DX: R10.9 Unspecified abdominal pain (principal)
CPT/HCPCS: 80053; 83516; 87045; 87046; 87328; 87329